=== PATIENT | male | born 1965 | race Caucasian/White ===

== ENCOUNTER 2023-02-25 08:55 | Outpatient (OUT) | payer OTHER, SELFPAY ==
[2023-02-25 09:23] LABS: Basophils Absolute Auto 0.1 10^3/uL (0.0-0.1); Eosinophils Absolute Auto 0.7 10^3/uL (0.0-0.7); Eosinophils Percent Auto 10.6 % (0.9-7.0); Hematocrit 41.1 % (42.0-54.0); Hemoglobin 13.6 g/dL (14.0-18.0); Immature Granulocytes Abs Auto 0.01 10^3/uL (0.00-0.03); Immature Granulocytes Pct Auto 0.1 % (0.0-0.5); Lymphocytes Absolute Auto 1.7 10^3/uL (1.2-3.8); Lymphocytes Percent Auto 25.3 % (20.5-60.0); Mean Corpuscular HGB Conc 33.1 g/dL (29.9-35.2); Mean Corpuscular Hemoglobin 29.2 pg (25.9-34.0); Mean Corpuscular Volume 88.2 fL (80.0-94.0); Mean Platelet Volume 9.4 fL (9.5-13.5); Monocytes Absolute Auto 0.7 10^3/uL (0.3-0.8); Monocytes Percent Auto 10.3 % (1.7-12.0); Neutrophils Absolute Auto 3.6 10^3/uL (1.4-6.5); Neutrophils Percent Auto 52.7 % (43.0-75.0); Platelet Count 270 10^3/uL (150-450); Red Blood Count 4.66 10^6/uL (4.70-6.10); Red Cell Distribution Width 12.6 % (11.0-15.0); White Blood Count 6.9 10^3/uL (4.0-11.0)
[2023-02-25 10:24] LABS: Estimated Average Glucose 134 mg/dL; Glycohemoglobin A1C 6.3 % (4.5-6.2)
[2023-02-25 11:09] LABS: Alanine Aminotransferase 43 U/L (16-63); Albumin Globulin Ratio 0.9; Albumin Level 3.7 g/dL (3.4-5.0); Alkaline Phosphatase 95 U/L (46-116); Anion Gap 11.2; Aspartate Amino Transferase 26 U/L (15-37); BUN Creatinine Ratio 12.9; Bilirubin Total 0.7 mg/dL (0.2-1.0); Calcium 9.3 mg/dL (8.5-10.1); Carbon Dioxide 26.4 mmol/L (21.0-32.0); Chloride 101 mmol/L (98-107); Chol HDL Ratio 5.4; Cholesterol 200 mg/dL (<=200); Estimated GFR (African America >60 (>=60); Estimated GFR (Non-African Ame 53 (>=60); Free Thyroxine Index 2.97 (1.30-4.50); Globulin 4.2 g/dL; Glucose 110 mg/dL (74-106); HDL Cholesterol 37 mg/dL (40-60); Potassium 3.6 mmol/L (3.5-5.1); Sodium 135 mmol/L (136-145); Thyroid Stimulating Hormone 1.169 uIU/mL (0.358-3.740); Total Protein 7.9 g/dL (6.4-8.2); Triglycerides 83 mg/dL (<=150); VLDL CHOLESTEROL 16.6 mg/dL
[2023-02-25 11:19] LABS: Prostate Specific Antigen Scrn 6.97 ng/mL (<=4.00)
== END 2023-02-25 08:56 ==
LOC: LAB 08:58
PROVIDERS: PCP Family Medicine; Visit Provider Family Medicine
DX: I10 Essential (primary) hypertension (principal); R73.09 Other abnormal glucose; Z12.5 Encounter for screening for malignant neoplasm of prostate
CPT/HCPCS: 36415; 80053; 80061; 83036; 84153; 84154; 84436; 84443; 84479; 85025; G0103

== ENCOUNTER 2023-02-28 13:11 | Outpatient (OUT) | payer OTHER, SELFPAY ==
[2023-03-01 04:07] LABS: PSA, Free 0.91 ng/mL; Prostate Specific Ag 5.2 ng/mL (0.0-4.0)
== END 2023-02-28 13:12 ==
LOC: LAB 13:11
PROVIDERS: PCP Family Medicine; Visit Provider Family Medicine
DX: R97.20 Elevated prostate specific antigen [PSA] (principal)
CPT/HCPCS: 36415

== ENCOUNTER 2023-03-16 08:01 | Outpatient (OUT) | payer OTHER, SELFPAY ==
--- NOTE | 2023-03-16 08:08 | US_ITS ---
The [address] [address] Patient Name: WAQAS DO MRN: [id number] date: 1965 Sex: M Assigned Patient Location: US Current Patient Location: US Accession/Order Number: [id number] Exam Date: 03/16/2023 08:10 Report Date: 03/16/2023 08:48 At the request of: KEV HUGO Procedure: US prostate EXAMINATION: US prostate HISTORY: ELEVATED PSA R97.20 COMPARISON: No relevant comparison available. TECHNIQUE: Ultrasound exam for the prostate with an endorectal transducer was performed utilizing real-time and color duplex Doppler sonography. FINDINGS: The prostate gland is enlarged measuring 6.1 x 5.6 x 4.6 cm. 82.7 cc, Grade 3. The prostate gland is lobular in contour containing a central hypoechogenic mass with calcifications which measures 5.4 x 4.6 x 4.1 cm. IMPRESSION: Enlarged prostate gland containing a 5.4 cm heterogeneous lobular central mass with calcifications Electronically authenticated by: DIDIER ADAM Date: 03/16/2023 08:48
== END 2023-03-16 08:02 | disposition home or self-care (01) ==
LOC: US 08:02
PROVIDERS: PCP Family Medicine; Visit Provider Family Medicine
DX: R97.20 Elevated prostate specific antigen [PSA] (principal)
CPT/HCPCS: 76872

== ENCOUNTER 2023-04-04 14:00 | Outpatient (OUT) | payer OTHER, SELFPAY | END 2023-04-04 14:01 | disposition home or self-care (01) | LOC: PST 04-08 18:58 | PROVIDERS: PCP Family Medicine; Visit Provider Surgery | DX: Z01.818 Encounter for other preprocedural examination (principal); Z12.11 Encounter for screening for malignant neoplasm of colon ==

== ENCOUNTER 2023-04-13 10:33 | Day surgery (SDC) | payer OTHER, SELFPAY ==
--- NOTE | 2023-04-13 | OP_ITS ---
OPERATION DATE: ??04/13/2023 PREOPERATIVE DIAGNOSIS:? Colorectal screening. POSTOPERATIVE DIAGNOSIS:? Normal colonoscopy to cecum. PROCEDURE:? Colonoscopy to cecum. SURGEON:? Yosi Sanders M.D. ANESTHESIA:? Monitored anesthesia care. ESTIMATED BLOOD LOSS:? Zero. INDICATIONS AND CONSENT:? Patient is a 57-year-old male presents for colorectal screening.? Indications, risks, benefits, alternatives of proceeding with colonoscopy were explained extensively to the patient, including the risks of bleeding, colon perforation or anesthetic complications.? All of his questions were answered.? Informed consent was obtained.? PROCEDURE:? Patient brought to the operating room, placed in the left lateral decubitus position.? Monitored anesthesia care was provided.? Rectal exam was performed which showed no masses or blood.? The scope was inserted into the anal canal.? Under direct visualization was advanced.? It was advanced to the cecum where cecal markings were clearly identified.? Upon withdrawal of the scope, mucosal surfaces were carefully examined.? There were no mass lesions or polyps.? No inflammatory changes or ulcerations.? No significant diverticulosis.? The scope was retroflexed in the anal canal.? There was no significant hemorrhoidal disease.? Scope was then withdrawn.? Patient tolerated procedure well, was sent to recovery room in good condition.? f/u screening colonoscopy should be in 10 years. CC:? Albaro Carrera
[2023-04-13 10:45] VITALS: BP 178/116; PULSE 85; RESP 16; TEMP 36.1; O2SAT 99; BMI 35.2
[2023-04-13] MEDS: LACTATED RINGER'S SOLUTION 1,000 ML 50 ML IV (10:55)
[2023-04-13 12:21] VITALS: BP 119/78; PULSE 65; RESP 18; TEMP 36.3; O2SAT 95
[2023-04-13 12:37] VITALS: BP 135/98; PULSE 71; RESP 16; O2SAT 95
[2023-04-13 12:49] VITALS: BP 148/78; PULSE 72; RESP 16; O2SAT 95
== END 2023-04-13 12:51 | disposition home or self-care (01) ==
PROVIDERS: PCP Family Medicine; Visit Provider Surgery
PROC: (CPT 45378; principal; 2023-04-13 13:45)
DX: Z12.11 Encounter for screening for malignant neoplasm of colon (principal); N40.1 Benign prostatic hyperplasia with lower urinary tract symptoms; R97.20 Elevated prostate specific antigen [PSA]; F17.220 Nicotine dependence, chewing tobacco, uncomplicated; E66.01 Morbid (severe) obesity due to excess calories; I10 Essential (primary) hypertension; Z87.442 Personal history of urinary calculi; Z80.52 Family history of malignant neoplasm of bladder; Z68.35 Body mass index [BMI] 35.0-35.9, adult
CPT/HCPCS: 45378; J2704

== ENCOUNTER 2023-05-05 09:54 | Outpatient (OUT) | payer OTHER, SELFPAY ==
[2023-05-06 04:08] LABS: Prostate Specific Ag 10.9 ng/mL (0.0-4.0)
== END 2023-05-05 09:55 | disposition home or self-care (01) ==
LOC: LAB 09:57
PROVIDERS: PCP Family Medicine; Visit Provider Urology
DX: R97.20 Elevated prostate specific antigen [PSA] (principal)
CPT/HCPCS: 36415; 84153; 84154

== ENCOUNTER 2023-05-05 10:00 | Outpatient (OUT) | payer OTHER, SELFPAY ==
[2023-05-05 11:33] LABS: C Reactive Protein 0.4 mg/dL (<=1.0)
[2023-05-06 06:09] LABS: Antistreptolysin O Ab 69.7 IU/mL (0.0-200.0); Rheumatoid Factor (RF) 42.5 IU/mL (<14.0)
== END 2023-05-05 10:01 | disposition home or self-care (01) ==
LOC: LAB 10:01
PROVIDERS: PCP Family Medicine; Visit Provider Nurse Practitioner Family
DX: R21 Rash and other nonspecific skin eruption (principal); R97.20 Elevated prostate specific antigen [PSA]
CPT/HCPCS: 36415; 84153; 84154; 84550; 86038; 86060; 86140; 86430

== ENCOUNTER 2023-09-26 15:55 | Outpatient (OUT) | payer OTHER, SELFPAY ==
--- NOTE | 2023-09-26 16:00 | XR_ITS ---
The [address] [address] Patient Name: WAQAS DO MRN: [id number] date: 1965 Sex: M Assigned Patient Location: RAD Current Patient Location: RAD Accession/Order Number: [id number] Exam Date: 09/26/2023 16:05 Report Date: 09/26/2023 16:37 At the request of: KEV HUGO Procedure: XR chest 2V EXAM: XR chest 2V HISTORY: Chronic cough R05.3 ; technologist notes state cough for one week. COMPARISON: None. TECHNIQUE: PA and lateral views of the chest performed. FINDINGS: The trachea is midline. The cardiac silhouette is unremarkable. There are patchy densities at both lung bases. There is no pleural effusion or pulmonary vascular congestion. There is no pneumothorax. No acute osseous abnormality. XR/XR chest 2V IMPRESSION: There are patchy densities at both lung bases. Appropriate medical treatment and a follow-up chest radiograph to confirm complete resolution recommended. Electronically authenticated by: PATRICA HILARIO Date: 09/26/2023 16:37
== END 2023-09-26 15:56 | disposition home or self-care (01) ==
LOC: RAD 15:56
PROVIDERS: PCP Family Medicine; Visit Provider Family Medicine
DX: R05.3 Chronic cough (principal)
CPT/HCPCS: 71046

== ENCOUNTER 2023-10-07 07:47 | Outpatient (OUT) | payer OTHER, SELFPAY ==
--- OUTSIDE RECORDS SUMMARY | 2023-10-07 07:48 | XMS_ITS | CCD ---
Author Name Unknown Address [address] [facility] [address] [place] [id number] Organization [facility] Care Team Providers Care Software Developer Manager Name Role Phone DR KEV MOSER Admitting Unavailable OANH, DR ANGULO Attending Unavailable OANH, DR ANGULO Primary Care Unavailable OANH, DR ANGULO Consulting Unavailable DIDIER LEACH Consulting Unavailable Kev Moser Primary Care Physician Yosi BRYSON Attending Unavailable VALDERRAMA, Jerzy Banda Attending Unavailable VALDERRAMA, Jerzy Banda Attending Unavailable VALDERRAMA, Jerzy Banda Attending Unavailable Kev Moser Referring Unavailable VALDERRAMA, Jerzy Banda Attending Unavailable VALDERRAMA, Jerzy Banda Attending Unavailable VALDERRAMA, Jerzy Banda Attending Unavailable VALDERRAMA, Jerzy Banda Admitting Unavailable NILL, Yosi Banda Attending Unavailable NILL, Yosi Banda Attending Unavailable Kev Moser Referring Unavailable Medications Current Medications Medication Drug Class(es) Dates Sig (Normalized) Sig (Original) carvedilol 6.25 mg oral tablet (3 sources) alpha-Adrenergic Iwly, beta-Adrenergic Wily Start: 03-18-2023 carvedilol 6.25 mg Tab Refills(s) 0 Start Date: 03/18/23 Status: Ordered ciprofloxacin 500 mg oral tablet (1 source) Quinolone Antimicrobial Start: 05-27-2023 End: 06-17-2023 take 1 tablet by mouth twice daily Cipro 500 mg Tab 500 mg = 1 tab(s), Oral, BID, X 3 week(s), # 42 tab(s), Refills(s) 0, Pharmacy: [facility]/pharmacy #[id number], 183, cm, 05/27/23 11:32:00 EDT, Height/Length Dosing, 120, kg, 05/27/23 11:32:00 EDT, Weight Dosing Start Date: 05/27/23 Stop Date: 06/17/23 Status: Ordered doxycycline hyclate 100 mg oral capsule (1 source) Tetracycline-class Drug Start: 03-18-2023 End: 04-15-2023 take 1 capsule by mouth twice daily doxycycline hyclate 100 mg Cap 100 mg = 1 cap(s), Oral, BID, X 4 week(s), # 56 cap(s), Refills(s) 0, Pharmacy: [facility]/pharmacy #[id number], 183, cm, 03/18/23 11:48:00 EDT, Height/Length Dosing, 120, kg, 03/18/23 11:48:00 EDT, Weight Dosing Start Date: 03/18/23 Stop Date: 04/15/23 Status: Ordered irbesartan 300 mg oral tablet (3 sources) Angiotensin 2 Receptor Wily Start: 03-18-2023 irbesartan 300 mg Tab Refills(s) 0 Start Date: 03/18/23 Status: Ordered tamsulosin hydrochloride 0.4 mg oral capsule (3 sources) alpha-Adrenergic Wily Start: 03-18-2023 take 1 capsule by mouth once daily tamsulosin 0.4 mg Cap 0.4 mg = 1 cap(s), Oral, Daily, # 30 cap(s), Refills(s) 11, Pharmacy: [facility]/pharmacy #[id number], 183, cm, 03/18/23 11:48:00 EDT, Height/Length Dosing, 120, kg, 03/18/23 11:48:00 EDT, Weight Dosing Start Date: 03/18/23 Status: Ordered Problems Problem Classification Problem Date Documented Da te Episodic/Chronic Abdominal pain (4 sources) Unspecified abdominal pain; Translations: [UNSPECIFIED ABDOMINAL PAIN] Onset: 08-06-2022 Episodic Calculus of urinary tract (5 sources) History of calculus of kidney; Translations: [Personal history of urinary calculi] Onset: 03-18-2023 Episodic Essential hypertension (3 sources) Hypertensive disorder 03-12-2023 Chronic Hyperplasia of prostate (5 sources) Benign prostatic hypertrophy with outflow obstruction; Translations: [Benign prostatic hyperplasia with lower urinary tract symptoms] Onset: 03-18-2023 Chronic Inflammatory conditions of male genital organs (5 sources) Prostatitis; Translations: [Inflammatory disease of prostate, unspecified] Onset: 03-18-2023 Episodic Joint disorders and dislocations; trauma-related (3 sources) Tear of meniscus of knee 09-30-2017 Episodic Osteoarthritis (3 sources) Osteoarthritis of knee 09-30-2017 Chronic Other diseases of kidney and ureters (1 source) Urinary tract obstruction; Translations: [Other obstructive and reflux uropathy] Onset: 03-18-2023 Episodic Other gastrointestinal disorders (1 source) Constipation, unspecified; Translations: [CONSTIPATION UNSPECIFIED] Onset: 08-11-2022 Episodic Other nutritional; endocrine; and metabolic disorders (3 sources) Body mass index 30+ - obesity 03-18-2023 Chronic Other nutritional; endocrine; and metabolic disorders (3 sources) Morbid obesity 03-18-2023 Chronic Other screening for suspected conditions (not mental disorders or infectious disease) (5 sources) Raised prostate specific antigen; Translations: [Elevated prostate specific antigen [PSA]] Onset: 03-18-2023 Episodic Residual codes; unclassified (4 sources) Family history of malignant neoplasm of urinary bladder; Translations: [Family history of malignant neoplasm of bladder] Onset: 03-18-2023 Episodic Residual codes; unclassified (3 sources) Chews tobacco 03-18-2023 Episodic Unclassified (3 sources) Patient encounter status 03-18-2023 Results Test Name Value Interpretation Reference Range [facility] ity Ambulatory Visit Summaryon 1 Ambulatory Visit Summary DOWAQAS :1965 Visit Date:07/01/2023 Ambulatory Visit Instructions Your Diagnosis Elevated PSA BPH with urinary obstruction Prostatitis History of nephrolithiasis Your Care Team Attending Physician - Jerzy VALDERRAMA MD Primary Care Physician - Kev Moser MD This Is Your Medications List tamsulosin (tamsulosin 0.4 mg Cap) Contact prescribing physician if questions or concerns carvedilol (carvedilol 6.25 mg Tab) irbesartan (irbesartan 300 mg Tab) Procedures Performed Transrectal biopsy of prostate using ultrasound (US) guidance (06/14/2023), Arthroscopy of knee (10/21/2017), excision of bone growth left lower leg, Myringotomy and insertion of short-term grommet. Discharge Vitals Heart Rate (Peripheral) 100 Respiratory Rate 16 Blood Pressure 149/88 Height 183 cm Height 72 in Weight 120 kg Weight 264 lb BMI 35.83 What to do next Scheduled Follow-Up Appointments Tuesday 10:30 AM EDT With: Jerzy VALDERRAMA MD Where: [facility] Patient Educationon 07-01-20 23 Patient Education Oncology Prostate Cancer Screening Prostate cancer screening is testing that is done to check for the presence of prostate cancer in men. The prostate gland is a walnut-sized gland that is located below the bladder and in front of the rectum in males. The function of the prostate is to add fluid to semen during ejaculation. Prostate cancer is one of the most common types of cancer in men. Who should have prostate cancer screening? Screening recommendations vary based on age and other risk factors, as well as between the professional organizations who make the recommendations. In general, screening is recommended if: ? You are age 50 to 70 and have an average risk for prostate cancer. You should talk with your health care provider about your need for screening and how often screening should be done. Because most prostate cancers are slow growing and will not cause , screening in this age group is generally reserved for men who have a 10- to 15-year life expectancy. ? You are younger than age 50, and you have these risk factors: ? Having a father, brother, or uncle who has been diagnosed with prostate cancer. The risk is higher if your family member's cancer occurred at an early age or if you have multiple family members with prostate cancer at an early age. ? Being a male who is Black or is of [place] or sub-Saharan descent. In general, screening is not recommended if: ? You are younger than age 40. ? You are between the ages of 40 and 49 and you have no risk factors. ? You are 70 years of age or older. At this age, the risks that screening can cause are greater than the benefits that it may provide. If you are at high risk for prostate cancer, your health care provider may recommend that you have screenings more often or that you start screening at a younger age. How is screening for prostate cancer done? The recommended prostate cancer screening test is a blood test called the prostate-specific antigen (PSA) test. PSA is a protein that is made in the prostate. As you age, your prostate naturally produces more PSA. Abnormally high PSA levels may be caused by: ? Prostate cancer. ? An enlarged prostate that is not caused by cancer (benign prostatic hyperplasia, or BPH). This condition is very common in older men. ? A prostate gland infection (prostatitis) or urinary tract infection. ? Certain medicines such as male hormones (like testosterone) or other medicines that raise testosterone levels. A rectal exam may be done as part of prostate cancer screening to help provide information about the size of your prostate gland. When a rectal exam is performed, it should be done after the PSA level is drawn to avoid any effect on the results. Depending on the PSA results, you may need more tests, such as: ? A physical exam to check the size of your prostate gland, if not done as part of screening. ? Blood and imaging tests. ? A procedure to remove tissue samples from your prostate gland for testing (biopsy). This is the only way to know for certain if you have prostate cancer. What are the benefits of prostate cancer screening? ? Screening can help to identify cancer at an early stage, before symptoms start and when the cancer can be treated more easily. ? There is a small chance that screening may lower your risk of dying from prostate cancer. The chance is small because prostate cancer is a slow-growing cancer, and most men with prostate cancer from a different cause. What are the risks of prostate cancer screening? The main risk of prostate cancer screening is diagnosing and treating prostate cancer that would never have caused any symptoms or problems. This is called overdiagnosisand overtreatment. PSA screening cannot tell you if your PSA is high due to cancer or a different cause. A prostate biopsy is the only procedure to diagnose prostate cancer. Even the results of a biopsy may not tell you if your cancer needs to be treated. Slow-growing prostate cancer may not need any treatment other than monitoring, so diagnosing and treating it may cause unnecessary stress or other side effects. Questions to ask your health care provider ? When should I start prostate cancer screening? ? What is my risk for prostate cancer? ? How often do I need screening? ? What type of screening tests do I need? ? How do I get my test results? ? What do my results mean? ? Do I need treatment? Where to find more information ? The [employer]: www.cancer.org ? [employer]: www.auanet.org Contact a health care provider if: ? You have difficulty urinating. ? You have pain when you urinate or ejaculate. ? You have blood in your urine or semen. ? You have pain in your back or in the area of your prostate. Summary ? Prostate cancer is a common type of cancer in men. The prostate gland is located below the bladder and in front of the rectum. This gland adds flu (more content not included)... Normal [facility] Urology Office/Clinic Noteon 07-01-2023 Urology Office/Clinic Note Chief Complaint f/u to TRUS bx HPI Staff 57 yo male here to review pathology report from TRUS/bx on 06/14/23. Previous Dx: elevated PSA, BPH with obstruction, prostatitis, h/o nephrolithiasis. No hx of other TRUS/bx. Tamsulosin 0.4mg therapy QD. Dysuria: no Incomplete bladder emptying: no Hematuria: no Frequency: no Urgency: no Nocturia: 1-2x Stream: good steady stream Leaking: no Post void dripping: no Wearing pads/ Depends: no Urge incontinence: no Stress incontinence: no Incontinence without Sensory Awareness: no Abdominal pain: no Flank pain: no Sexual complaints: no History of Present Illness Tests reviewed: reviewed pathology report I have reviewed the previous health record information and history for this patient from Dr. Valderrama. I have reviewed and verified the staff HPI to be accurate for this encounter. Review of Systems PHQ Score Initial Depression Screen Score: 0 ROS - Provider Constitutional: denies weight loss, denies hot flashes. Eyes: denies eye problems. Gastrointestinal: denies nausea, denies vomiting. Cardiovascular: denies chest pain or angina. Integumentary: no dryness Musculoskeletal: denies musculoskeletal symptoms. ENMT: denies otolaryngeal symptoms. Respiratory: no shortness of breath. Heme/Lymph: denies easy bleeding tendency, denies easy bruising tendency. Psychiatric: no confusion, no anxiety. Genitourinary: See HPI. Physical Exam Vitals & Measurements HR: 100(Peripheral) RR: 16 BP: 149/88 HT: 72 in HT: 183 cm WT: 120 kg WT: 264 lb BMI: 35.83 General Appearance: alert, no distress, well nourished, well developed male. Genitourinary: normal scrotum, normal testes, normal urethra, normal epididymis, normal vas deferens/spermatic cord. Flank Pain: none. Bladder: nonpalpable. Assessment/Plan Pt is here with today to review pathology report. 1. Elevated PSA (R97.20: Elevated prostate specific antigen [PSA]) S/p TRUS/bx 06/14/23 - mild acute chronic inflammation in 3 cores. The pathology report was reviewed with the patient in detail today. There is no evidence of malignancy and no further evaluation of the tissue removed is planned. Discussed prostate does have some inflammation which can falsely elevate PSA. All questions were answered and the report discussed in terms that the patient could understand. PSA: 09/28/16 - 2.20 02/25/23 - 6.97 05/05/23 - 10.9 & 19.3% (after possible prostatitis tx) Denies family hx of prostate cancer. Follow up with PSA in 6 months or sooner if needed. All questions/concerns were discussed. Pt to call the office if he encounters any issues prior. Pt acknowledges understanding. -next PSA level will need doubled since pt is beginning Dutasteride 2. BPH with urinary obstruction (N40.1: Benign prostatic hyperplasia with lower urinary tract symptoms) Prostate US 03/16/23 - enlarged prostate measuring 6.1 x 5.6 x 4.6 cm. 82.7 cc. Continues taking Tamsulosin 0.4mg QD (at night). States his urinary sxs have improved by about 85% since beginning this med. Good stream. Feels he empties completely. Reports his sx control is not as good in the afternoons. Admits he does have nocturia 1-2x/night (was every 2hrs) but feels this is tolerable. Discussed pt to try taking BID for a week and to monitor sxs. If pt feels improvement, pt to call our office for new script. Discussed additional prostate medication to help control urinary sxs. Pt agrees to begin Dutasteride 0.5mg qd. Discussed the medication side effects, and the patient will monitor closely for these, as well as for symptom improvement. If severe side effects occur, the medication should be stopped and the office notified. -Try increasing Tamsulosin 0.4mg to bid for a week and call for new script if sxs improve. -Begin Dutasteride. Rx sent to [facility]. 3. Prostatitis (N41.9: Inflammatory disease of prostate, unspecified) Pt was given Cipro 500mg BID x3w. Completed abx course with sx improvement. Denies any pain or pressure. 4. History of nephrolithiasis (Z87.442: Personal history of urinary calculi) Asymptomatic. No recent imaging. Follow-up With When Contact Information Jerzy VALDERRAMA MD, URL [facility] [address], [place] [address]- [phone] Additional Instructions: 6 mos w/ PSA Patient Education Prostate Cancer Screening Ramona Biggs, personally scribed for Dr. Valderrama on 07/01/2023 09:32:13. . Documentation recorded by the scribeRamona, accurately reflects the services(s) I performed and decisions made by me. Authenticated by Dr. Valderrama on 07/01/2023 09:34:30. Problem List/Past Medical History Ongoing BMI 35.0-35.9,adult BPH with urinary obstruction Chews tobacco Elevated PSA Family history of bladder cancer History of nephrolithiasis HTN (hypertension) Morbid obesity Prostatitis Screening for malignant neoplasm of colon Historical (more content not included)... Normal [facility] Comment on above: Result Comment: Elec tronically Signed By: Jerzy VALDERRAMA MD\.br\Date and Time Signed: 07/01/23 09:34 EDT\.br\Electronically Co-Signed By: Ramona Whitlock\.br\Date and Time Co-Signed: 07/01/23 09:32 EDT Prostate Histology ([facility]) on 06-23-2023 Prostate Histology Diagnosis Info Invalid Interpretation Code [facility] Comment on above: Result Comment: A:Pr ostate,Left Lateral Base:Needle Biopsy Interpretation - - Benign prostatic tissue. MicroScopic Description - B:Prostate,Left Lateral Mid:Needle Biopsy Interpretation - - Benign prostatic tissue. MicroScopic Description - C:Prostate,Left Lateral [place]:Needle Biopsy Interpretation - - Benign prostatic tissue. MicroScopic Description - D:Prostate,Left Base:Needle Biopsy Interpretation - - Benign prostatic tissue. MicroScopic Description - E:Prostate,Left Mid:Needle Biopsy Interpretation - - Benign prostatic tissue. MicroScopic Description - F:Prostate,Left [place]:Needle Biopsy Interpretation - - Benign prostatic tissue. MicroScopic Description - G:Prostate,Right Base:Needle Biopsy Interpretation - - Benign prostatic tissue with patchy mild acute chronic inflammation. MicroScopic Description - H:Prostate,Right Mid:Needle Biopsy Interpretation - - Benign prostatic tissue. MicroScopic Description - I:Prostate,Right [place]:Needle Biopsy Interpretation - - Benign prostatic tissue with patchy mild acute chronic inflammation. MicroScopic Description - J:Prostate,Right Lateral Base:Needle Biopsy Interpretation - - Benign prostatic tissue. MicroScopic Description - K:Prostate,Right Lateral Mid:Needle Biopsy Interpretation - - Benign prostatic tissue. MicroScopic Description - L:Prostate,Right Lateral [place]:Needle Biopsy Interpretation - - Benign prostatic tissue with patchy mild acute chronic inflammation. MicroScopic Description - Gross Description Site ID:A color ariza-white fixative Formalin cores 1 units cm Site ID:B color ariza-white fixative Formalin cores 1 units cm Site ID:C color ariza-white fixative Formalin cores 1 units cm Site ID:D color ariza-white fixative Formalin cores 1 units cm Site ID:E color ariza-white fixative Formalin cores 1 units cm Site ID:F color ariza-white fixative Formalin cores 1 units cm Site ID:G color ariza-white fixative Formalin cores 1 units cm Site ID:H color ariza-white fixative Formalin cores 1 units cm Site ID:I color ariza-white fixative Formalin cores 1 units cm Site ID:J color ariza-white fixative Formalin cores 1 units cm Site ID:K color ariza-white fixative Formalin cores 1 units cm Site ID:L color ariza-white fixative Formalin cores 1 units cm CPT: 52159 x 12 Electronically signed by : on: 06/23/2023 10:59:54 Performed By: #### 1 [id number] ####[facility] [address] [place] [address] Consent for Procedure/Surger yon 06-15-2023 Consent for Procedure/Surgery [id number]:[id number] Normal [facility] Ambulatory Visit Summaryon 0 06-14-2023 Ambulatory Visit Summary WAQAS DO :1965 Visit Date:06/14/2023 Ambulatory Visit Instructions Your Diagnosis Elevated PSA BPH with urinary obstruction Prostatitis History of nephrolithiasis Your Care Team Attending Physician - DEBBIE AMADO, Jerzy Banda Primary Care Physician - Kev Moser MD This Is Your Medications List Contact prescribing physician if questions or concerns carvedilol (carvedilol 6.25 mg Tab) ciprofloxacin (Cipro 500 mg Tab) irbesartan (irbesartan 300 mg Tab) tamsulosin (tamsulosin 0.4 mg Cap) Procedures Performed Transrectal biopsy of prostate using ultrasound (US) guidance (06/14/2023), Arthroscopy of knee (10/21/2017), excision of bone growth left lower leg, Myringotomy and insertion of short-term grommet. Discharge Vitals Heart Rate (Apical) 88 Blood Pressure 159/105 Height 72 in Height 183 cm Weight 264 lb Weight 120 kg BMI 35.83 What to do next Scheduled Follow-Up Appointments Tuesday 8:45 AM EDT With: DEBBIE AMADO, Jerzy Banda Where: [facility] [place] Invalid Interpretation Code BPH with urinary obstruction [facility] Patient Educationon 06-14-20 23 Patient Education Oncology Transrectal Ultrasound-Guided Prostate Biopsy, Care After The following information offers guidance on how to care for yourself after your procedure. Your health care provider may also give you more specific instructions. If you have problems or questions, contact your health care provider. What can I expect after the procedure? After the procedure, it is common to have: ? Pain and discomfort near your rectum, especially while sitting. ? [place]-colored urine due to small amounts of blood in your urine. ? A burning feeling while urinating. ? Blood in your stool (feces) or bleeding from your rectum. ? Blood in your semen. Follow these instructions at home: Medicines ? Take npid-qjr-szscxat and prescription medicines only as told by your health care provider. ? If you were given a sedative during your procedure, it can affect you for several hours. Do not drive or operate machinery until your health care provider says that it is safe. ? If you were prescribed an antibiotic medicine, take it as told by your health care provider. Do not stop using the antibiotic even if you start to feel better. Activity ? Return to your normal activities as told by your health care provider. Ask your health care provider what activities are safe for you. ? Ask your health care provider when it is okay for you to resume sexual activity. ? You may have to avoid lifting. Ask your health care provider how much you can safely lift. General instructions ? Drink enough fluid to keep your urine pale yellow. ? Watch your urine, stool, and semen for new or increased bleeding. ? Keep all follow-up visits. This is important. Contact a health care provider if: ? You have any of the following: ? Blood clots in your urine or stool. ? Blood in your urine more than 2 weeks after the procedure. ? Blood in your semen more than 2 months after the procedure. ? New or increased bleeding in your urine, stool, or semen. ? Severe pain in your abdomen. ? Your urine smells bad or unusual. ? You have trouble urinating. ? Your lower abdomen feels firm. ? You have problems getting an erection. ? You have nausea or you vomit. Get help right away if: ? You have a fever or chills. This could be a sign of infection. ? You have bright red urine. ? You have severe pain that does not get better with medicine. ? You cannot urinate. Summary ? After this procedure, it is common to have pain and discomfort around your rectum, especially while sitting. ? You may have blood in your urine and stool after the procedure. ? It is common to have blood in your semen after this procedure. ? Get help right away if you have a fever or chills. This could be a sign of infection. This information is not intended to replace advice given to you by your health care provider. Make sure you discuss any questions you have with your health care provider. Document Revised: 03/01/2022 Document Reviewed: 03/01/2022 [employer] Patient Education ? 2022 [employer] Normal [facility] Prostate Histology ([facility]) on 06-14-2023 PH Method of Extraction Needle Biopsy Normal [facility] Comment on above: Performed By: #### 1 [id number] ####[facility] [id number] [place] [address] PH Number of Jars 2 Invalid Interpretation Code [facility] Comment on above: Performed By: #### 1 [id number] ####[facility] [id number] [place] [address] PH Specimen 1 R Base Prostate Normal [facility] Comment on above: Performed By: #### 1 [id number] ####[facility] [id number] [place] [address] PH Specimen 10 L Lat Mid Prost Normal [facility] Comment on above: Performed By: #### 1 [id number] ####[facility] [id number] [place] [address] PH Specimen 11 L Apx Prostate Normal [facility] Comment on above: Performed By: #### 1 [id number] ####[facility] [id number] [place] [address] PH Specimen 12 L Lat Apx Prost Normal [facility] Comment on above: Performed By: #### 1 [id number] ####[facility] [facility] [id number] [place] [address] PH Specimen 2 R Lat Bse Prost Normal [facility] Comment on above: Performed By: #### 1 [id number] ####[facility] [id number] [place] [address] PH Specimen 3 R Mid Prostate Normal [facility] Comment on above: Performed By: #### 1 [id number] ####[facility] [id number] [place] [address] PH Specimen 4 R Lat Mid Prost Normal [facility] Comment on above: Performed By: #### 1 [id number] ####[facility] [id number] [place] [address] PH Specimen 5 R Apx Prostate Normal [facility] Comment on above: Performed By: #### 1 [id number] ####[facility] [id number] [place] [address] PH Specimen 6 R Lat Apx Prost Normal [facility] Comment on above: Performed By: #### 1 [id number] ####[facility] [id number] [place] [address] PH Specimen 7 L Base Prostate Normal [facility] Comment on above: Performed By: #### 1 [id number] ####[facility] [address] [place] [address] PH Specimen 8 L Lat Bse Prost Normal [facility] Comment on above: Performed By: #### 1 [id number] ####[facility] [address] [place] [address] PH Specimen 9 L Mid Prostate Normal [facility] Comment on above: Performed By: #### 1 [id number] ####[facility] [id number] [place] [address] PH Type of Service Technical Only Normal Fi [facility] Comment on above: Performed By: #### 1 [id number] ####[facility] [id number] [place] [address] Urology Office/Clinic Noteon 06-14-2023 Urology Office/Clinic Note Chief Complaint Pt is here for TRUS/bx HPI Staff Waqas is a 57 y.o. male here for TRUS/bx. ABX taken. History of Present Illness Tests reviewed: none I have reviewed the previous health record information and history for this patient from Dr. Valderrama. I have reviewed and verified the staff HPI to be accurate for this encounter. There have been no associated fever, chills, flank pain, or blood in the urine. Denies any urinary infections since last encounter. Review of Systems PHQ Score Initial Depression Screen Score: 0 ROS - Provider Constitutional: denies weight loss, denies hot flashes. Eyes: denies eye problems. Gastrointestinal: denies nausea, denies vomiting. Cardiovascular: denies chest pain or angina. Integumentary: no dryness Musculoskeletal: denies musculoskeletal symptoms. ENMT: denies otolaryngeal symptoms. Respiratory: no shortness of breath. Heme/Lymph: denies easy bleeding tendency, denies easy bruising tendency. Psychiatric: no confusion, no anxiety. Genitourinary: See HPI. Physical Exam Vitals & Measurements HR: 88(Apical) BP: 159/105 HT: 72 in HT: 183 cm WT: 120 kg WT: 264 lb BMI: 35.83 General Appearance: alert, no distress, well nourished, well developed male. Genitourinary: normal scrotum, normal testes, normal urethra, normal epididymis, normal vas deferens/spermatic cord. Flank Pain: none. Bladder: nonpalpable. Procedure Operative Information Anesthesia Type: Local Procedure: Transrectal Ultrasound and Transrectal Ultrasound-Guided Biopsy of the Prostate Complications: None Surgical risks, benefits, details of the procedure have been explained to the patient. Full informed consent has been obtained. Intraoperative Information Prepped: The patient was brought into the office suite and placed in the modified left lateral Hill position. The patient was draped appropriately. 80 mg Gentamicin IM injection administered. Procedure: Then 2% Xylocaine jelly was used for intrarectal anesthesia. After waiting several minutes, a well lubricated ultrasound probe was introduced per rectum. The prostate was carefully evaluated in the AP and Sagittal views. Volume: 60.5mL_ Specimens Removed: A total of 12 biopsies were taken, 6 from each side, and sent to pathology. Postoperative Information The patient tolerated the procedure well and was discharged home in satisfactory condition. The patient was instructed to finish antibiotics, avoid strenuous activity, and go to the emergency room for gross bleeding, fever, or chills. Radiology Report Procedure: Transrectal US guided needle biopsy of the prostate Narrative: Ultrasound probe is introduced and performed in the longitudinal and transverse plains. The prostatic capsule and seminal vesicles appear to be within normal limits. Ultrasound guidance was then utilized to obtain 12 biopsies. These were sent to pathology for evaluation. The gland measures: _49.8 MM Length, _62.0 MM Width, _37.5 MM Depth, with a calculated volume of _60.5 CC. The peripheral zone demonstrates: mixed echogenicity diffusely Rest of the prostate demonstrates: _ Assessment/Plan 1. Elevated PSA (R97.20: Elevated prostate specific antigen [PSA]) PSA: 09/28/16 - 2.20 02/25/23 - 6.97 05/05/23 - 10.9 & 19.3% (after possible prostatitis tx) [1] Denies family hx of prostate cancer[2] Pt had TRUS/bx done IO today wo complications. Prophy abx taken prior. 2. BPH with urinary obstruction (N40.1: Benign prostatic hyperplasia with lower urinary tract symptoms) Prostate US 03/16/23 enlarged prostate measuring 6.1 x 5.6 x 4.6 cm. 82.7 cc Continues taking Tamsulosin 0.4mg QD. States this has improved sxs. 3. Prostatitis (N41.9: Inflammatory disease of prostate, unspecified) Pt was given Cipro 500mg BID x3 weeks at prior OV. Still taking. -Patient to limit sun exposure, wear a hat and sunscreen -Monitor for tendon pain, risk of tendonitis w/ Cipro 4. History of nephrolithiasis (Z87.442: Personal history of urinary calculi) Asymptomatic. No recent imaging. [3] Follow-up With When Contact Information DEBBIE AMADO, Jerzy Banda, URL [facility] [address] [place] [phone] Additional Instructions: f/u sched on 07/01/23 Patient Education Transrectal Ultrasound-Guided Prostate Biopsy, Care After I, Ramona Whitlock, personally scribed for Dr. Valderrama on 06/14/2023 16:39:55. . Documentation recorded by the scribeRamona, accurately reflects the services(s) I performed and decisions made by me. Authenticated by Dr. Valderrama on 06/14/2023 16:41:17. Problem List/Past Medical History Ongoing BMI 35.0-35.9,adult BPH with urinary obstruction Chews tobacco Elevated PSA Family history of bladder cancer History of nephrolithiasis HTN (hypertension) Morbid obesity Prostatitis Screening for malignant neoplasm of colon Historical No qualifying data Procedur (more content not included)... Normal [facility] Comment on above: Result Comment: Elec tronically Signed By: Jerzy VALDERRAMA MD\.br\Date and Time Signed: 06/14/23 16:41 EDT\.br\Electronically Co-Signed By: Ramona Whitlock\.br\Date and Time Co-Signed: 06/14/23 16:40 EDT Ambulatory Visit Summaryon 0 05-27-2023 Ambulatory Visit Summary WAQAS DO :1965 Visit Date:05/27/2023 Ambulatory Visit Instructions Your Diagnosis BPH with urinary obstruction Elevated PSA Prostatitis History of nephrolithiasis Tests Performed Urnls Dip Stick Auto w/o Microscopy POC 48612 Your Care Team Attending Physician - Jerzy VALDERRAMA MD Primary Care Physician - Kev Moser MD This Is Your Medications List ciprofloxacin (Cipro 500 mg Tab) tamsulosin (tamsulosin 0.4 mg Cap) Contact prescribing physician if questions or concerns carvedilol (carvedilol 6.25 mg Tab) irbesartan (irbesartan 300 mg Tab) Procedures Performed Arthroscopy of knee (10/21/2017), excision of bone growth left lower leg, Myringotomy and insertion of short-term grommet. Discharge Vitals Temperature (Temporal Artery) 36.6 ?C Heart Rate (Peripheral) 82 Blood Pressure 134/82 Height 183 cm Height 72 in Weight 120 kg Weight 264 lb BMI 35.83 What to do next You Need to Schedule the Following Appointments Follow Up with DEBBIE AMADO, DARON Ocampo When: Where: [address] [place], [place] [id number]- Medications What How Much When Instructions New ciprofloxacin (Cipro 500 mg Tab) 1 Tablets By Mouth 2 times a day Duration: 3 Weeks Pickup at [facility]/pharmacy #[id number] Unchanged tamsulosin (tamsulosin 0.4 mg Cap) 1 Capsules By Mouth Every day Unchanged carvedilol (carvedilol 6.25 mg Tab) Contact prescribing physician if questions or concerns Unchanged irbesartan (irbesartan 300 mg Tab) Contact prescribing physician if questions or concerns Pharmacy Information [facility]/pharmacy #[id number]: [address], [place] [id number] [phone] Test Results Urnls Dip Stick Auto w/o Microscopy POC 45996 (05/27/2023) Bilirubin Urine Dipstick - Negative Blood Urine Dipstick - Trace-intact Glucose Urine Dipstick - Negative Ketones Urine Dipstick - Negative Leukocytes Urine Dipstick - Negative Nitrite Urine Dipstick - Negative Protein Urine Dipstick - Negative Specific [place] Urine Dipstick - 1.020 Urine Appearance Urine Dipstick - Clear Urine Color Urine Dipstick - Yellow Urobilinogen Urine Dipstick - Normal 0.2-1 EU/dl pH Urine Dipstick - 5.5 Allergies No Known Allergies Problems Ongoing - Any problem that you are currently receiving treatment for. BMI 35.0-35.9,adult BPH with urinary obstruction Chews tobacco Elevated PSA Family history of bladder cancer History of nephrolithiasis HTN (hypertension) Morbid obesity Prostatitis Screening for malignant neoplasm of colon Education Materials Prostate Cancer Screening Prostate cancer screening is testing that is done to check for the presence of prostate cancer in men. The prostate gland is a walnut-sized gland that is located below the bladder and in front of the rectum in males. The function of the prostate is to add fluid to semen during ejaculation. Prostate cancer is one of the most common types of cancer in men. Who should have prostate cancer screening? Screening recommendations vary based on age and other risk factors, as well as between the professional organizations who make the recommendations. In general, screening is recommended if: ? You are age 50 to 70 and have an average risk for prostate cancer. You should talk with your health care provider about your need for screening and how often screening should be done. Because most prostate cancers are slow growing and will not cause , screening in this age group is generally reserved for men who have a 10- to 15-year life expectancy. ? You are younger than age 50, and you have these risk factors: ? Having a father, brother, or uncle who has been diagnosed with prostate cancer. The risk is higher if your family member's cancer occurred at an early age or if you have multiple family members with prostate cancer at an early age. ? Being a male who is Black or is of Samuel or sub-Saharan descent. In general, screening is not recommended if: ? You are younger than age 40. ? You are between the ages of 40 and 49 and you have no risk factors. ? You are 70 years of age or older. At this age, the risks that screening can cause are greater than the benefits that it may provide. If you are at high risk for prostate cancer, your health care provider may recommend that you have screenings more often or that you start screening at a younger age. How is screening for prostate cancer done? The recommended prostate cancer screening test is a blood test called the prostate-specific antigen (PSA) test. PSA is a protein that is made in the prostate. As you age, your prostate naturally produces more PSA. Abnormally high PSA levels may be caused by: ? Prostate cancer. ? An enlarged prostate that is not caused by cancer (benign prostatic hyperplasia, or BPH). This condition is very common in older men. ? A prostate gland infection (pr (more content not included)... Normal [facility] Patient Educationon 05-27-20 Patient Education Oncology Prostate Cancer Screening Prostate cancer screening is testing that is done to check for the presence of prostate cancer in men. The prostate gland is a walnut-sized gland that is located below the bladder and in front of the rectum in males. The function of the prostate is to add fluid to semen during ejaculation. Prostate cancer is one of the most common types of cancer in men. Who should have prostate cancer screening? Screening recommendations vary based on age and other risk factors, as well as between the professional organizations who make the recommendations. In general, screening is recommended if: ? You are age 50 to 70 and have an average risk for prostate cancer. You should talk with your health care provider about your need for screening and how often screening should be done. Because most prostate cancers are slow growing and will not cause , screening in this age group is generally reserved for men who have a 10- to 15-year life expectancy. ? You are younger than age 50, and you have these risk factors: ? Having a father, brother, or uncle who has been diagnosed with prostate cancer. The risk is higher if your family member's cancer occurred at an early age or if you have multiple family members with prostate cancer at an early age. ? Being a male who is Black or is of Samuel or sub-Saharan descent. In general, screening is not recommended if: ? You are younger than age 40. ? You are between the ages of 40 and 49 and you have no risk factors. ? You are 70 years of age or older. At this age, the risks that screening can cause are greater than the benefits that it may provide. If you are at high risk for prostate cancer, your health care provider may recommend that you have screenings more often or that you start screening at a younger age. How is screening for prostate cancer done? The recommended prostate cancer screening test is a blood test called the prostate-specific antigen (PSA) test. PSA is a protein that is made in the prostate. As you age, your prostate naturally produces more PSA. Abnormally high PSA levels may be caused by: ? Prostate cancer. ? An enlarged prostate that is not caused by cancer (benign prostatic hyperplasia, or BPH). This condition is very common in older men. ? A prostate gland infection (prostatitis) or urinary tract infection. ? Certain medicines such as male hormones (like testosterone) or other medicines that raise testosterone levels. A rectal exam may be done as part of prostate cancer screening to help provide information about the size of your prostate gland. When a rectal exam is performed, it should be done after the PSA level is drawn to avoid any effect on the results. Depending on the PSA results, you may need more tests, such as: ? A physical exam to check the size of your prostate gland, if not done as part of screening. ? Blood and imaging tests. ? A procedure to remove tissue samples from your prostate gland for testing (biopsy). This is the only way to know for certain if you have prostate cancer. What are the benefits of prostate cancer screening? ? Screening can help to identify cancer at an early stage, before symptoms start and when the cancer can be treated more easily. ? There is a small chance that screening may lower your risk of dying from prostate cancer. The chance is small because prostate cancer is a slow-growing cancer, and most men with prostate cancer from a different cause. What are the risks of prostate cancer screening? The main risk of prostate cancer screening is diagnosing and treating prostate cancer that would never have caused any symptoms or problems. This is called overdiagnosisand overtreatment. PSA screening cannot tell you if your PSA is high due to cancer or a different cause. A prostate biopsy is the only procedure to diagnose prostate cancer. Even the results of a biopsy may not tell you if your cancer needs to be treated. Slow-growing prostate cancer may not need any treatment other than monitoring, so diagnosing and treating it may cause unnecessary stress or other side effects. Questions to ask your health care provider ? When should I start prostate cancer screening? ? What is my risk for prostate cancer? ? How often do I need screening? ? What type of screening tests do I need? ? How do I get my test results? ? What do my results mean? ? Do I need treatment? Where to find more information ? [employer]: www.cancer.org ? [employer]: www.auanet.org Contact a health care provider if: ? You have difficulty urinating. ? You have pain when you urinate or ejaculate. ? You have blood in your urine or semen. ? You have pain in your back or in the area of your prostate. Summary ? Prostate cancer is a common type of cancer in men. The prostate gland is located below the bladder and in front of the rectum. This gland adds flu (more content not included)... Normal [facility] Urology Office/Clinic Noteon 05-27-2023 Urology Office/Clinic Note Chief Complaint 2 month F/U with PSA Free &* Total HPI Staff 2 month F/U with PSA Free & Total Previous DX; Elevated PSA 02/25/23- 6.97 05/05/23- PSA 10.9 ...19.3 % Prostatitis Doxycycline 100mg BID x4wks. He did take this but he noticed red bumps on him, he does not know if it was from the medication BPH Tamsulosin works very well Dysuria: _denies Incomplete bladder emptying: denies Hematuria: denies visible blood Frequency: every few hours Urgency: denies Nocturia: once nightly Stream: denies hesitation, strong stream Leaking: denies Post void dripping: sometimes Wearing pads/ Depends: denies Urge incontinence: denies Stress incontinence: denies Incontinence without Sensory Awareness: denies Abdominal pain: denies Flank pain: denies Sexual complaints: denies History of Present Illness Tests reviewed: Reviewed UA and PSA. I have reviewed the previous health record information and history for this patient from Dr. Valderrama. I have reviewed and verified the staff HPI to be accurate for this encounter. There have been no associated fever, chills, flank pain, or blood in the urine. Denies any urinary infections since last encounter. Review of Systems PHQ Score Initial Depression Screen Score: 0 ROS - Provider Constitutional: denies weight loss, denies hot flashes. Eyes: denies eye problems. Gastrointestinal: denies nausea, denies vomiting. Cardiovascular: denies chest pain or angina. Integumentary: no dryness Musculoskeletal: denies musculoskeletal symptoms. ENMT: denies otolaryngeal symptoms. Respiratory: no shortness of breath. Heme/Lymph: denies easy bleeding tendency, denies easy bruising tendency. Psychiatric: no confusion, no anxiety. Genitourinary: See HPI. Physical Exam Vitals & Measurements T: 36.6 ?C(Temporal Artery) HR: 82(Peripheral) BP: 134/82 HT: 72 in HT: 183 cm WT: 120 kg WT: 264 lb BMI: 35.83 General Appearance: alert, no distress, well nourished, well developed male. Genitourinary: normal scrotum, normal testes, normal urethra, normal epididymis, normal vas deferens/spermatic cord. Flank Pain: none. Bladder: nonpalpable. Assessment/Plan 1. BPH with urinary obstruction (N40.1: Benign prostatic hyperplasia with lower urinary tract symptoms) Prostate US 03/16/23 enlarged prostate measuring 6.1 x 5.6 x 4.6 cm. 82.7 cc Patient was started on Tamsulosin 0.4mg daily at last visit. Happy w/ results since starting medication. Stream has improved, nocturia has decreased. Intermittently able to sleep through the night. Frequency has improved. 2. Elevated PSA (R97.20: Elevated prostate specific antigen [PSA]) PSA: 09/28/16 - 2.20 02/25/23 - 6.97 05/05/23 - 10.9 & 19.3% (after possible prostatitis tx) Denies family hx of prostate cancer -Will schedule TRUS/bx due to rise in PSA 3. Prostatitis (N41.9: Inflammatory disease of prostate, unspecified) Patient was started on Doxycycline 100mg BID x 4 weeks at last encounter for possible prostatitis/reason for PSA increase. He did take this but he noticed red bumps on him, he does not know if it was from the medication. Does work in the sun which could of caused the red bumps. Denies wearing sunscreen. UA today trace LEUKS -Start Cipro 500mg BID x 3 weeks -Patient to limit sun exposure, wear a hat and sunscreen -Monitor for tendon pain, risk of tendonitis w/ Cipro 4. History of nephrolithiasis (Z87.442: Personal history of urinary calculi) Asymptomatic. No recent imaging. Follow-up With When Contact Information DEBBIE AMADO, Jerzy Banda, URL [facility] [place] [id number]- Additional Instructions: Schedule TRUS/bx Patient Education Prostate Cancer Screening Kamilah Biggs, personally scribed for Dr. Valderrama on 05/27/2023 12:22:03. . Documentation recorded by the scribeKamilah, accurately reflects the services(s) I performed and decisions made by me. Authenticated by Dr. Valderrama on 05/27/2023 12:25:31. Problem List/Past Medical History Ongoing BMI 35.0-35.9,adult BPH with urinary obstruction Chews tobacco Elevated PSA Family history of bladder cancer History of nephrolithiasis HTN (hypertension) Morbid obesity Prostatitis Screening for malignant neoplasm of colon Historical No qualifying data Procedure/Surgical History Arthroscopy of knee (10/21/2017), excision of bone growth left lower leg, Myringotomy and insertion of short-term grommet. Medications carvedilol 6.25 mg Tab irbesartan 300 mg Tab tamsulosin 0.4 mg Cap, 0.4 mg= 1 cap(s), Oral, Daily, 11 refills Allergies No Known Allergies Social History Alcohol - Denies Alcohol Use, 09/30/2017 Substance Abuse - Denies Substance Abuse, 09/30/2017 Tobacco - Medium Risk, 10/21/2017 Former smoker, quit more than 30 days ago Tobacco Use:. Smokeless tobacco user within last 30 days Smokeless Tobacco Use:. Cigarettes, Ora (more content not included)... [facility] Comment on above: Result Comment: Elec tronically Signed By: Jerzy VALDERRAMA MD\.br\Date and Time Signed: 05/27/23 12:25 EDT\.br\Electronically Co-Signed By: Kamilah Wallis\Date and Time Co-Signed: 05/27/23 12:22 EDT Lab Reportson 05-09-2023 Lab Reports [id number] .00CD:127 [facility] Outside Colonoscopyon 2022 Outside Colonoscopy [id number] .00CD:127 [facility] Reminderson 04-14-2023 Reminders - From: Shannan Garcia LPN To: N - Clinical; Sent: 04/14/2023 14:17:56 EDT Show up: 03/14/2033 07:00:00 EDT Subject: colonoscopy recall Due Date/Time: 04/13/2033 07:00:00 EDT Reminder/Recall Patient due for screening colonoscopy 04/13/2033. [facility] Pre-Certification Formon Pre-Certification Form [id number]# 1.00CD:127 Normal [facility] Facesheeton 03-23-2023 Facesheet [id number] .00CD:127 [facility] Consent for Procedure/Surger yon 03-21-2023 Consent for Procedure/Surgery [id number] .00CD:127 [facility] Ambulatory Visit Summaryon 0 03-18-2023 Ambulatory Visit Summary WAQAS DO :1965 Visit Date:03/18/2023 Ambulatory Visit Instructions Your Diagnosis Screening for malignant neoplasm of colon Chews tobacco Your Care Team Attending Physician - BRAYDON AMADO, Yosi Banda Primary Care Physician - Kev Moser MD This Is Your Medications List Contact prescribing physician if questions or concerns carvedilol (carvedilol 6.25 mg Tab) doxycycline (doxycycline hyclate 100 mg Cap) irbesartan (irbesartan 300 mg Tab) tamsulosin (tamsulosin 0.4 mg Cap) Procedures Performed Arthroscopy of knee (10/21/2017), excision of bone growth left lower leg, Myringotomy and insertion of short-term grommet. Discharge Vitals Heart Rate (Peripheral) 72 Respiratory Rate 16 Blood Pressure 126/90 Height 183 cm Height 72 in Weight 118 kg Weight 259.6 lb BMI 35.24 What to do next Scheduled Follow-Up Appointments Tuesday 10:30 AM EDT With: DEBBIE AMADO, Jerzy Banda Where: [facility] Patient Educationon 03-18-20 23 Patient Education Infectious Disease Prostatitis Prostatitis is swelling or inflammation of the prostate gland, also called the prostate. This gland is about 1.5 inches wide and 1 inch high, and it is involved in making semen. The prostate is located below a man's bladder, in front of the rectum. There are four types of prostatitis: ? Chronic prostatitis (CP), also called chronic pelvic pain syndrome (CPPS). This is the most common type of prostatitis. It is associated with increased muscle tone in the area between the hip bones (pelvic area), around the prostate. This type is also known as a pelvic floor disorder. ? Chronic bacterial prostatitis. This type usually results from an acute bacterial infection in the prostate gland that keeps coming back or has not been treated properly. The symptoms are less severe than those caused by acute bacterial prostatitis, which lasts a shorter time. ? Asymptomatic inflammatory prostatitis. This type does not have symptoms and does not need treatment. This is diagnosed when tests are done for other disorders of the urinary tract or reproductive tract. ? Acute bacterial prostatitis. This type starts quickly and results from an acute bacterial infection in the prostate gland. It is usually associated with a bladder infection, high fever, and chills. This is the least common type of prostatitis. What are the causes? Bacterial prostatitis is caused by an infection from bacteria. Chronic nonbacterial prostatitis may be caused by: ? Factors related to the nervous system. This system includes thebrain, spinal cord, and nerves. ? An autoimmune response. This happens when the body's disease-fighting system attacks healthy tissue in the body by mistake. ? Psychological factors. These have to do with how the mind works. The causes of the other types of prostatitis are usually not known. What are the signs or symptoms? Symptoms of this condition depend on the type of prostatitis you have. Acute bacterial prostatitis Symptoms may include: ? Pain or burning during urination. ? Frequent and sudden urges to urinate. ? Trouble starting to urinate. ? Fever. ? Chills. ? Pain in your muscles or joints, lower back, or lower abdomen. Other types of prostatitis Symptoms may include: ? Sudden urges to urinate, or urinating often. ? Trouble starting to urinate. ? Weak urine stream. ? Dribbling after urination. ? Discharge coming from the penis. ? Pain in the testicles, the penis, or the tip of the penis. ? Pain in the area in front of the rectum and below the scrotum (perineum). ? Pain when ejaculating. How is this diagnosed? This condition may be diagnosed based on: ? A physical and medical exam. ? A digital rectal exam. For this, the health care provider may use a finger to feel the prostate. ? A urine test to check for bacteria. ? A semen sample or blood tests. ? Ultrasound. ? Urodynamic tests to check how your body handles urine. ? Cystoscopy to look inside your bladder or inside the part of your body that drains urine from the bladder (urethra). How is this treated? Treatment for this condition depends on the type of prostatitis. Treatment may involve: ? Medicines to relieve pain or inflammation, or to help relax your muscles. ? Physical therapy. ? Heat therapy. ? Biofeedback. These techniques help you control certain body functions. ? Relaxation exercises. ? Antibiotic medicine, if your condition is caused by bacteria. ? Sitz baths. These warm water baths help to relax your pelvic floor muscles, which helps to relieve pressure on the prostate. Follow these instructions at home: Medicines ? Take [id number]-[id number] and prescription medicines only as told by your health care provider. ? If you were prescribed an antibiotic medicine, take it as told by your health care provider. Do not stop using the antibiotic even if you start to feel better. Managing pain and swelling ? Take sitz baths as directed by your health care provider. For a sitz bath, sit in warm water that is deep enough to cover your hips and buttocks. ? If directed, apply heat to the affected area as often as told by your health care provider. Use the heat source that your health care provider recommends, such as a moist heat pack or a heating pad. ? Place a towel between your skin and the heat source. ? Leave the heat on for 20?30 minutes. ? Remove the heat if your skin turns bright red. This is especially important if you are unable to feel pain, heat, or cold. You may have a greater risk of getting burned. General instructions ? Do exercises as told by your health care provider, if you were prescribed physical therapy, biofeedback, or relaxation exercises. ? Keep all follow-up visits as told by your health care provider. This is important. Where to find more information ? National [place] of [employer] and Digestive and Kidney Diseases: (more content not included)... Normal [facility] Physician Referralon 023 Physician Referral [id number]# 1.00CD:127 Normal [facility] Screenson 03-18-2023 Screens [id number]# 1.00CD:127 Normal [facility] Urology Office/Clinic Noteon 03-18-2023 Urology Office/Clinic Note Chief Complaint elevated PSA HPI Staff Referral for elevated PSA. Current PSA done 02/25/23 is 6.97 and previous done 09/28/2016 was 2.20. Recent US done of the prostate shows enlarged measuring 6.1 x 5.6 x 4.6cm. Pt has a hx of kidney stones but has not had any for 30 years now. PVR today is 58ml. Dysuria: no Incomplete bladder emptying: less than half of the time per IPSS. Hematuria: no Frequency: almost always Urgency: less than half of the time Nocturia: 3x for about a year Stream: no intermittency or straining Leaking: no Post void dripping: no Wearing pads/ Depends: no Urge incontinence: no Stress incontinence: no Incontinence without Sensory Awareness: no Abdominal pain: no Flank pain: bilateral recently Sexual complaints: no History of Present Illness Tests Reviewed: Reviewed UA, PSA, Prostate US I have reviewed the previous health record information and history for this patient from Dr Kev Moser I have reviewed and verified the staff HPI to be accurate for this encounter. There have been no associated fever, chills, flank pain, or blood in the urine. Denies any urinary infections since last encounter. Review of Systems PHQ Score Initial Depression Screen Score: 0 ROS - Provider Constitutional: denies weight loss, denies hot flashes. Eyes: denies eye problems. Gastrointestinal: denies nausea, denies vomiting. Cardiovascular: denies chest pain or angina. Integumentary: no dryness Musculoskeletal: denies musculoskeletal symptoms. ENMT: denies otolaryngeal symptoms. Respiratory: no shortness of breath. Heme/Lymph: denies easy bleeding tendency, denies easy bruising tendency. Psychiatric: no confusion, no anxiety. Genitourinary: SEE HPI Physical Exam Vitals & Measurements HR: 100(Peripheral) RR: 16 BP: 138/88 HT: 72 in HT: 183 cm WT: 120 kg WT: 264 lb BMI: 35.83 General Appearance: alert, no distress, well nourished, well developed male. Head: normocephalic . Eyes: normal orbit and globe. ENMT: normal examination of external ears. Chest: Lungs CTA, respirations non labored. Cardiovascular: regular rate and rhythm. Abdomen: soft, non distended, no tenderness, no mass or organomegaly, no hernia. Genitourinary: normal scrotum, normal testes, normal urethra, normal epididymis, normal vas deferens/spermatic cord. Flank Pain: none. Bladder: nonpalpable. Penis: normal shaft, normal glans. Prostate: normal prostate, estimated weight 50 gms, no hard nodule observed. Lymph Nodes: unremarkable palpation of the cervical area. Skin: warm, dry, no bruising. Psychiatric: cooperative, affect appropriate for age, normal judgement, euthymic mood. Assessment/Plan 1. Elevated PSA (R97.20: Elevated prostate specific antigen [PSA]) PSA 09/28/2016- 2.20 02/25/23- 6.97 NEG Family Hx of Prostate Cancer. 2. Prostatitis (N41.9: Inflammatory disease of prostate, unspecified) UA today shows SMALL Leuks. Discussed possibility of prostatitis and how it could cause elevated PSA. Will start Doxycycline 100mg BID x4wks. Then repeat PSA. TRUS/Bx if results are the same or higher. 3. BPH with urinary obstruction (N40.1: Benign prostatic hyperplasia with lower urinary tract symptoms) Prostate US 03/16/23 shows enlarged prostate measuring 6.1 x 5.6 x 4.6 cm. 82.7 cc. Grade 3. IPSS 17 QOL 5 No prostate medications at this time. Will start Tamsulosin 0.4mg QD therapy. Discussed the medication side effects, and the patient will monitor closely for these, as well as for symptom improvement. If severe side effects occur, the medication should be stopped and the office notified. 4. History of nephrolithiasis (Z87.442: Personal history of urinary calculi) Asymptomatic. No recent imaging. 5. Family history of bladder cancer (Z80.52: Family history of malignant neoplasm of bladder) Father Other obstructive and reflux uropathy (N13.8: Other obstructive and reflux uropathy) Follow-up With When Contact Information DEBBIE AMADO, DARON Ocampo In 2 months Formerly named [facility] [place] [address]- Additional Instructions: PSA Patient Education Prostatitis I, Divya Landry, personally scribed for Dr. Valderrama on 03/18/2023 12:44:46. . Documentation recorded by the scribe, Divya Landry, accurately reflects the services(s) I performed and decisions made by me. Authenticated by Dr. Valderrama on 03/18/2023 12:47:48. Problem List/Past Medical History Ongoing BPH with urinary obstruction Elevated PSA Family history of bladder cancer History of nephrolithiasis HTN (hypertension) Prostatitis Historical No qualifying data Procedure/Surgical History Arthroscopy of knee (10/21/2017), excision of bone growth left lower leg, Myringotomy and insertion of short-term grommet. Medications carvedilol 6.25 mg Tab irbesartan 300 mg Tab Allergies No Known Allergies Social History (more content not included)... Normal [facility] Comment on above: Result Comment: Elec tronically Signed By: Jerzy VALDERRAMA MD\.br\Date and Time Signed: 03/18/23 12:47 EDT\.br\Electronically Co-Signed By: Divya Landry MA\.br\Date and Time Co-Signed: 03/18/23 12:45 EDT Consultation Noteon 02-28-20 Consultation Note [id number] .00CD:127 [facility] Physician Referralon 023 Physician Referral [id number] .00CD:127 [facility] XR ABD FLAT UP_PA Nando 08-08 XR ABD FLAT UP_PA CH EXAMINATION: XR ABD FLAT UP_PA CH HISTORY: Abdominal pain COMPARISON: Abdomen x-ray 10/10/2018. TECHNIQUE: PA chest and 3 views of the abdomen FINDINGS: The lung parenchyma is free of consolidation or infiltrate. No pneumothorax or pleural effusion. The cardiac, mediastinal and hilar contours are normal. Moderate amount of stool within the adjacent colon. The remainder of the colon exhibits a normal stool burden. No bowel obstruction or free intraperitoneal air. Again demonstrated is the oval calcification overlying the inferior pole left kidney measuring approximately 10 mm on this study. New with the prior study is a 22 x 13.5 mm right and 14 x 10 mm left amorphous calcifications that overlie the L3 transverse processes. The visualized osseous structures exhibit no gross abnormality. Age-related changes of the pubic symphysis, hip joints and sacroiliac joints. Spondylitic changes of the visualized lumbar spine. IMPRESSION: Amorphous calcifications overlying the right and left transverse processes. These may represent sequela from prior tuberculosis. 10 mm calcification overlies the inferior pole the left renal bed. Stool within the ascending colon. Electronically authenticated by: DIDIER LEACH Date: 2022-08-08 20:40 Normal [facility] Vital Signs Date Time Vital Sign Value Performing Clinician Macey maurer 07-01-2023 08:44-0400 Blood Pressure Location Jerzy VALDERRAMA [facility] 07-01-2023 08:44-0400 Diastolic blood pressure 88 mm[Hg] Jerzy VALDERRAMA [facility] 07-01-2023 08:44-0400 Heart rate 100 /min Jerzy VALDERRAMA [facility] 07-01-2023 08:44-0400 Respiratory rate 16 /min Jerzy VALDERRAMA [facility] 07-01-2023 08:44-0400 Systolic blood pressure 149 mm[Hg] Jerzy VALDERRAMA [facility] 03-18-2023 11:44-0400 Blood Pressure Location Jerzy VALDERRAMA [facility] 03-18-2023 11:44-0400 Diastolic blood pressure 88 mm[Hg] Jerzy VALDERRAMA [facility] 03-18-2023 11:44-0400 Heart rate 100 /min Jerzy VALDERRAMA [facility] 03-18-2023 11:[id number] Respiratory rate 16 /min Jerzy DEBBIE [facility] 03-18-2023 11:44-7947 Systolic blood pressure 138 mm[Hg] Jerzy VALDERRAMA [facility] Encounters Encounter Date Encounter Type Care Provider Facility Start: 01-02-2024 ambulatory Jerzy VALDERRAMA [facility]ili [facility] Start: 07-01-2023 End: 07-02-2023 ambulatory Jerzy VALDERRAMA Facility:[facility] Start: 07-01-2023 End: 07-01-2023 Patient encounter procedure Jerzy VALDERRAMA [facility] Start: 06-14-2023 End: 06-15-2023 ambulatory Jerzy VALDERRAMA Facility:[facility] Start: 06-14-2023 End: 06-15-2023 ambulatory Jerzy VALDERRAMA Facility:[facility] [place] Start: 06-14-2023 End: 06-14-2023 Lab Drop off Jerzy VALDERRAMA [facility] Start: 05-27-2023 End: 05-28-2023 ambulatory Jerzy VALDERRAMA Facility:[facility] Start: 04-13-2023 End: 04-14-2023 ambulatory Yosi R BRENDAL Facility:[id number] Start: 03-18-2023 End: 03-19-2023 [facility] Start: 03-18-2023 End: 03-19-2023 ambulatory Jerzy VALDERRAMA Facility:[facility] Start: 03-18-2023 End: 03-18-2023 Patient encounter procedure Jerzy VALDERRAMA [facility] Start: 03-08-2023 ambulatory Yosi BRYSON Facility:[facility] Start: 02-21-2023 ambulatory Yosi Veronika BRYSON Facility :[facility] Start: 08-06-2022 End: 08-07-[address] KEV MOSER Facility:[facility] Procedures Date Procedure Procedure Detail Performing Clinician Start: 06-14-2023 Transrectal biopsy o f prostate using ultrasound guidance Jerzy VALDERRAMA Start: 10-21-2017 Arthroscopy of knee Anna Marie VALDERRAMA Comment on above: left excision of bone lynne wth left lower leg Jerzy VALDERRAMA Myringotomy and inse rtion of short-term tympanic ventilation tube Jerzy VALDERRAMA Comment on above: multiple as a child Immunizations Immunization Date Immunization Notes Care Provider [place] 08-19-2021 SARS-CoV-2 (COVID-19 ) mRNA-1273 vaccine Jerzy VALDERRAMA [facility] Comment on above: Result Comment: 2022: [id number] 07-22-2021 SARS-CoV-2 (COVID-19 ) mRNA-1273 vaccine Jerzy VALDERRAMA [facility] Comment on above: Result Comment: 2022: [id number] Payers Date Payer Category Payer Unknown [id number] 2.16.84 [id number] 1965 Unknown [id number] 2.16.8 [id number] 1966 Unknown [id number] 2.16.8 [id number] 1966 Unknown [id number] 2.16.8 [id number] 1966 Unknown [id number] 2.16.8 [id number] 1966 Unknown [id number] 2.16.8 [id number] 1966 Unknown [id number] 2.16.8 [id number] 1966 Unknown [id number] 2.16.8 [id number] 1966 Unknown [id number] 2.16.8 [id number] 1966 Unknown [id number] 2.16.8 [id number] 1959 Private Health Insurance [id number] Social History Date Type Detail Facility Start: 03-18-2023 End: 05-27-2023 Tobacco smoking status Ex-smoker (finding) [facility] Tobacco smoking status Smokeless tobacco user within last 30 days [facility] Sex Assigned At Male [facility] Functional Status Date Assessment Result Facility 07-01-2023 Functional Status N/A [facility] 03-18-2023 Functional Status N/A [facility] Hospital Discharge instructions 07-01-2023 Note Date & Type Note Facility 07-01-2023 Hospital Discharge instructions Patient Education 07/01/2023 09:24:13 Prostate Cancer Screening Prostate Cancer Screening Prostate cancer screening is testing that is done to check for the presence of prostate cancer in men. The prostate gland is a walnut-sized gland that is located below the bladder and in front of the rectum in males. The function of the prostate is to add fluid to semen during ejaculation. Prostate cancer is one of the most common types of cancer in men. Who should have prostate cancer screening? Screening recommendations vary based on age and other risk factors, as well as between the professional organizations who make the recommendations. In general, screening is recommended if: You are age 50 to 70 and have an average risk for prostate cancer. You should talk with your health care provider about your need for screening and how often screening should be done. Because most prostate cancers are slow growing and will not cause , screening in this age group is generally reserved for men who have a 10- to 15-year life expectancy. You are younger than age 50, and you have these risk factors: ?Having a father, brother, or uncle who has been diagnosed with prostate cancer. The risk is higher if your family member's cancer occurred at an early age or if you have multiple family members with prostate cancer at an early age. ?Being a male who is Black or is of [place] or sub-Saharan descent. In general, screening is not recommended if: You are younger than age 40. You are between the ages of 40 and 49 and you have no risk factors. You are 70 years of age or older. At this age, the risks that screening can cause are greater than the benefits that it may provide. If you are at high risk for prostate cancer, your health care provider may recommend that you have screenings more often or that you start screening at a younger age. How is screening for prostate cancer done? The recommended prostate cancer screening test is a blood test called the prostate-specific antigen (PSA) test. PSA is a protein that is made in the prostate. As you age, your prostate naturally produces more PSA. Abnormally high PSA levels may be caused by: Prostate cancer. An enlarged prostate that is not caused by cancer (benign prostatic hyperplasia, or BPH). This condition is very common in older men. A prostate gland infection (prostatitis) or urinary tract infection. Certain medicines such as male hormones (like testosterone) or other medicines that raise testosterone levels. A rectal exam may be done as part of prostate cancer screening to help provide information about the size of your prostate gland. When a rectal exam is performed, it should be done after the PSA level is drawn to avoid any effect on the results. Depending on the PSA results, you may need more tests, such as: A physical exam to check the size of your prostate gland, if not done as part of screening. Blood and imaging tests. A procedure to remove tissue samples from your prostate gland for testing (biopsy). This is the only way to know for certain if you have prostate cancer. What are the benefits of prostate cancer screening? Screening can help to identify cancer at an early stage, before symptoms start and when the cancer can be treated more easily. There is a small chance that screening may lower your risk of dying from prostate cancer. The chance is small because prostate cancer is a slow-growing cancer, and most men with prostate cancer from a different cause. What are the risks of prostate cancer screening? The main risk of prostate cancer screening is diagnosing and treating prostate cancer that would never have caused any symptoms or problems. This is called overdiagnosisand overtreatment. PSA screening cannot tell you if your PSA is high due to cancer or a different cause. A prostate biopsy is the only procedure to diagnose prostate cancer. Even the results of a biopsy may not tell you if your cancer needs to be treated. Slow-growing prostate cancer may not need any treatment other than monitoring, so diagnosing and treating it may cause unnecessary stress or other side effects. Questions to ask your health care provider When should I start prostate cancer screening? What is my risk for prostate cancer? How often do I need screening? What type of screening tests do I need? How do I get my test results? What do my results mean? Do I need treatment? Where to find more information The [employer]: www.cancer.org [employer]: www.auanet.org Contact a health care provider if: You have difficulty urinating. You have pain when you urinate or ejaculate. You have blood in your urine or semen. You have pain in your back or in the area of your prostate. Summary Prostate cancer is a common type of cancer in men. The prostate gland is located below the bladder and in front of the rectum. This gland adds fluid to semen during ejaculation. Prostate cancer screening may identify cancer at an early stage, when the cancer can be treated more easily and is less likely to have spread to other areas of the body. The prostate-specific antigen (PSA) test is the recommended screening test for prostate cancer, but it has associated risks. Discuss the risks and benefits of prostate cancer screening with your health care provider. If you are age 70 or older, the risks that screening can cause are greater than the benefits that it may provide. This information is not intended to replace advice given to you by your health care provider. Make sure you discuss any questions you have with your health care provider. Document Revised: 03/01/2022 Document Reviewed: 03/01/2022 [employer] Patient Education 2022 [employer]. Follow Up Care 06/02/2023 15:12:45 With:DEBBIE AMADO, Jerzy Banda, URL Address: [facility] [address] [place] [address] [phone] When: Unknown [facility] Clinical Note 03-18-2023 Note Date & Type Note Facility 03-18-2023 Note Chief Complaint consultation for screening colonoscopy HPI Staff 57 year old male presents on consultation from Dr. Moser for screening colonoscopy. Denies abdominal or rectal pain. No rectal bleeding or change in bowel habits. No nausea or vomiting. No unexplained weight loss. Never had colonoscopy in the past. Father with history of colon cancer, diagnosed age early 70's. History of Present Illness 57 yo male with h/o htn, bph, referred for colorectal screening; denies change in bms or blood in stools; no abdominal complaints; denies asa or NSAID use, no SBE prophylaxis; no abdominal operations or previous colonoscopy; fmxh of colon cancer in patient's father, dx in his 70's, no fmhx of IBD; chews tobacco. Review of Systems PHQ Score Initial Depression Screen Score: 0 ROS - Provider Constitutional: no fever, no sweats, no weight loss. Eyes: yes glasses, no blurred vision, no visual loss. ENMT: no dentures, no hoarseness, no swallowing difficulties, no hearing loss, no ear infection(s), no nose bleeds. Cardiovascular: normal blood pressure, no chest pain, regular heartbeat, no heart murmur. Respiratory: no shortness of breath, no cough, no asthma, no wheezing. Gastrointestinal: no nausea, no vomiting, no diarrhea, no constipation, no blood in stool, no change in bowel habits, no abdominal pain, no hepatitis. Genitourinary: no kidney stones, no urine infection, no dysuria. Musculoskeletal: no pain, no weakness. Skin: no changing moles, no rash, no skin lumps. Neurologic: no seizures, no epilepsy, no headache. Psychiatric: no emotional or psychiatric problem. Heme/Lymph: no bleeding problems, no anemia, no blood clots, no transfusions. Allergy/Immunologic: no swollen lymph nodes/glands, no IV drug abuse. Other: Additional ROS info: Except as noted in the above Review of Systems and in the History of Present Illness, all other systems have been reviewed and are negative or noncontributory. Physical Exam Vitals & Measurements HR: 72(Peripheral) RR: 16 BP: 126/90 HT: 72 in HT: 183 cm WT: 118 kg WT: 259.6 lb BMI: 35.24 HEENT: normal conjunctiva, sclera clear, no scleral icterus, EOM intact, PERRLA, oral mucosa moist without lesions. Neck: trachea midline, no mass, symmetric, no thyromegaly or nodules, no adenopathy Respiratory: lungs CTA, respirations non labored. Cardiovascular: regular rate and rhythm, no murmur, no pedal edema or varicosities. Gastrointestinal: soft, non distended, no tenderness, no masses, no palpable hernias, diastasis recti no, no hepatosplenomegaly; normal bs Lymphatic: no cervical adenopathy, no supraclavicular adenopathy. Musculoskeletal: normal gait, digits and nails without infection, nodes, cyanosis, clubbing. Skin: no rashes, no lesions, no ulcers, no subcutaneous nodules, induration. Psychiatric/Neuro: oriented to time, place, person, judgement normal, affect appropriate for age, insight intact, no focal deficits. Tests: review of old records completed, Discussed surgical options, risks, and possible complications with patient. Assessment/Plan 1. Screening for malignant neoplasm of colon (Z12.11: Encounter for screening for malignant neoplasm of colon) plan colonoscopy under anesthesia, informed consent obtained. 2. Chews tobacco (Z72.0: Tobacco use) We strongly recommend to quit tobacco use. Cigarette smoking harms nearly every organ of the body, causes many diseases, and reduces the health of smokers in general. Quitting smoking lowers your risk for smoking-related diseases and can add years to your life. We encourage you to visit www.smokefree.gov access to helpful resources including free telephone support. If you decide on prescription treatment to help you quit, your family doctor would be happy to provide these. Follow-up No qualifying data available Problem List/Past Medical History Ongoing BMI 35.0-35.9,adult BPH with urinary obstruction Chews tobacco Elevated PSA Family history of bladder cancer History of nephrolithiasis HTN (hypertension) Morbid obesity Prostatitis Screening for malignant neoplasm of colon Historical No qualifying data Procedure/Surgical History Arthroscopy of knee (10/21/2017), excision of bone growth left lower leg, Myringotomy and insertion of short-term grommet. Medications carvedilol 6.25 mg Tab doxycycline hyclate 100 mg Cap, 100 mg= 1 cap(s), Oral, BID irbesartan 300 mg Tab tamsulosin 0.4 mg Cap, 0.4 mg= 1 cap(s), Oral, Daily, 11 refills Allergies No Known Allergies Social History Alcohol - Denies Alcohol Use, 09/30/2017 Substance Abuse - Denies Substance Abuse, 09/30/2017 Tobacco - Medium Risk, 10/21/2017 Former smoker, quit more than 30 days ago Tobacco Use:. Smokeless tobacco user within last 30 days Smokeless Tobacco Use:. Cigarettes, Oral, 1 per day. Yes, 03/18/2023 Family History COPD: Father and Brother. Hypertension: Mother. Primary malignant neoplasm of bladder: Father. Primary chris (more content not included)... [facility] Comment on above: Result Comment: Elec tronically Signed By: BRAYDON AMADO, Yosi Guzmán\Date and Time Signed: 03/18/23 14:30 EDT Hospital Discharge instructions 03-18-2023 Note Date & Type Note Facility 03-18-2023 Hospital Discharg e instructions Patient Education 03/18/2023 12:44:01 Prostatitis Prostatitis Prostatitis is swelling or inflammation of the prostate gland, also called the prostate. This gland is about 1.5 inches wide and 1 inch high, and it is involved in making semen. The prostate is located below a man's bladder, in front of the rectum. There are four types of prostatitis: Chronic prostatitis (CP), also called chronic pelvic pain syndrome (CPPS). This is the most common type of prostatitis. It is associated with increased muscle tone in the area between the hip bones (pelvic area), around the prostate. This type is also known as a pelvic floor disorder. Chronic bacterial prostatitis. This type usually results from an acute bacterial infection in the prostate gland that keeps coming back or has not been treated properly. The symptoms are less severe than those caused by acute bacterial prostatitis, which lasts a shorter time. Asymptomatic inflammatory prostatitis. This type does not have symptoms and does not need treatment. This is diagnosed when tests are done for other disorders of the urinary tract or reproductive tract. Acute bacterial prostatitis. This type starts quickly and results from an acute bacterial infection in the prostate gland. It is usually associated with a bladder infection, high fever, and chills. This is the least common type of prostatitis. What are the causes? Bacterial prostatitis is caused by an infection from bacteria. Chronic nonbacterial prostatitis may be caused by: Factors related to the nervous system. This system includes thebrain, spinal cord, and nerves. An autoimmune response. This happens when the body's disease-fighting system attacks healthy tissue in the body by mistake. Psychological factors. These have to do with how the mind works. The causes of the other types of prostatitis are usually not known. What are the signs or symptoms? Symptoms of this condition depend on the type of prostatitis you have. Acute bacterial prostatitis Symptoms may include: Pain or burning during urination. Frequent and sudden urges to urinate. Trouble starting to urinate. Fever. Chills. Pain in your muscles or joints, lower back, or lower abdomen. Other types of prostatitis Symptoms may include: Sudden urges to urinate, or urinating often. Trouble starting to urinate. Weak urine stream. Dribbling after urination. Discharge coming from the penis. Pain in the testicles, the penis, or the tip of the penis. Pain in the area in front of the rectum and below the scrotum (perineum). Pain when ejaculating. How is this diagnosed? This condition may be diagnosed based on: A physical and medical exam. A digital rectal exam. For this, the health care provider may use a finger to feel the prostate. A urine test to check for bacteria. A semen sample or blood tests. Ultrasound. Urodynamic tests to check how your body handles urine. Cystoscopy to look inside your bladder or inside the part of your body that drains urine from the bladder (urethra). How is this treated? Treatment for this condition depends on the type of prostatitis. Treatment may involve: Medicines to relieve pain or inflammation, or to help relax your muscles. Physical therapy. Heat therapy. Biofeedback. These techniques help you control certain body functions. Relaxation exercises. Antibiotic medicine, if your condition is caused by bacteria. Sitz baths. These warm water baths help to relax your pelvic floor muscles, which helps to relieve pressure on the prostate. Follow these instructions at home: Medicines Take bcpp-oga-xoeonzw and prescription medicines only as told by your health care provider. If you were prescribed an antibiotic medicine, take it as told by your health care provider. Do not stop using the antibiotic even if you start to feel better. Managing pain and swelling Take sitz baths as directed by your health care provider. For a sitz bath, sit in warm water that is deep enough to cover your hips and buttocks. If directed, apply heat to the affected area as often as told by your health care provider. Use the heat source that your health care provider recommends, such as a moist heat pack or a heating pad. ?Place a towel between your skin and the heat source. ?Leave the heat on for 20 30 minutes. ?Remove the heat if your skin turns bright red. This is especially important if you are unable to feel pain, heat, or cold. You may have a greater risk of getting burned. General instructions Do exercises as told by your health care provider, if you were prescribed physical therapy, biofeedback, or relaxation exercises. Keep all follow-up visits as told by your health care provider. This is important. Where to find more information National [place] of Diabetes and Digestive and Kidney Diseases: https://www.niddk.nih.gov Contact a health care provider if: Your symptoms get worse. You have a fever. Get help right away if: You have chills. You feel light-headed or feel like you may faint. You cannot urinate. You have blood or blood clots in your urine. Summary Prostatitis is swelling or inflammation of the prostate gland. Treatment for this condition depends on the type of prostatitis. Take badk-eem-cuseqor and prescription medicines only as told by your health care provider. Get help right away of you have chills, feel light-headed, feel like you may faint, cannot urinate, or have blood or blood clots in your urine. This information is not intended to replace advice given to you by your health care provider. Make sure you discuss any questions you have with your health care provider. Document Revised: 10/10/2020 Document Reviewed: 10/10/2020 [employer] Patient Education 2022 [employer] Follow Up Care 03/08/2023 10:24:41 With:DEBBIE AMADO, Jerzy Banda, URL Address: [address] [place] [id number]- When:Within 2 Month(s) Comments:PSA [facility] Evaluation + Plan note Note Date & Type Note Facility Evaluation + Plan note Future Appointments Appointment Date:05/27/2023 10:30:00 AM Scheduled Provider:Jerzy VALDERRAMA MD Location:[facility] Appointment Type:URO Office Visit Diagnostic Tests PendingPSA Total 03/18/23 [facility] Evaluation + Plan note Note Date & Type Note Facility Evaluation + Plan note Future Appointments Appointment Date:07/01/2023 08:45:00 AM Scheduled Provider:Jerzy VALDERRAMA MD Location:[facility] Appointment Type:URO Office Visit Diagnostic Tests PendingProstate Histology ([facility]) 06/14/23 [facility] Evaluation + Plan note Note Date & Type Note Facility Evaluation + Plan note Future Appointments Appointment Date:01/02/2024 10:30:00 AM Scheduled Provider:Jerzy VALDERRAMA MD Location:[facility] Appointment Type:URO Office Visit Diagnostic Tests PendingPSA Total 07/01/23 [facility] Hospital course Narrative Note Date & Type Note Facility Hospital course Narrative No data available for this section [facility] Hospital Discharge instructions Note Date & Type Note Facility Hospital Discharge instructions No data available for this section [facility] Progress note Note Date & Type Note Facility Progress note No data available for this section [facility] Summary Purpose Family History No Family History Records Found No data available for this section No Family History Records Found Advance Directives No Advanced Directives Records FoundNo Advanced Directives Records Found Additional Source Comments (unrecognized sect ion and content) No Status Records FoundNo Status Records Found INFORMATION SOURCE (unrecogn ized section and content) DATE CREATED AUTHOR 08/11/2022 [facility] DATE CREATED AUTHOR AUTHOR'S ORGANIZ ATION 07/02/2023 [facility] Patient Care team informatio n (unrecognized section and content) Personnel Name: Kev Moser MD Address: Address: [address] [place] [address] Personnel Name: Kev Moser MD Address: Address: [address] [place] [address] [place] [address] Personnel Name: Kev Moser MD Address: Address: [address] [place] [address] FOR RECORDS PERTAINING TO PATIENTS WHO ARE OR HAVE BEEN ENROLLED IN A CHEMICAL DEPENDENCY/SUBSTANCEABUSE PROGRAM, SOME INFORMATION MAY BE OMITTED. This clinical summary was aggregated from multiple sources. Caution should be exercised in using it in the provision of clinical care. This summary normalizes information from multiple sources, and as a consequence, information in this document may materially change the coding, format and clinical context of patient data. In addition, data may be omitted in some cases. CLINICAL DECISIONS SHOULD BE BASED ON THE PRIMARY CLINICAL RECORDS. [facility]. provides no warranty or guarantee of the accuracy or completeness of information in this document.
[2023-10-07 08:06] LABS: Basophils Absolute Auto 0.1 10^3/uL (0.0-0.1); Basophils Percent Auto 0.4 % (0.2-2.0); Eosinophils Absolute Auto 0.1 10^3/uL (0.0-0.7); Eosinophils Percent Auto 0.8 % (0.9-7.0); Hematocrit 46.5 % (42.0-54.0); Immature Granulocytes Abs Auto 0.14 10^3/uL (0.00-0.03); Immature Granulocytes Pct Auto 1.1 % (0.0-0.5); Lymphocytes Percent Auto 15.4 % (20.5-60.0); Mean Corpuscular HGB Conc 34.4 g/dL (29.9-35.2); Mean Corpuscular Volume 84.2 fL (80.0-94.0); Mean Platelet Volume 10.3 fL (9.5-13.5); Monocytes Percent Auto 7.6 % (1.7-12.0); Neutrophils Absolute Auto 9.6 10^3/uL (1.4-6.5); Neutrophils Percent Auto 74.7 % (43.0-75.0); Platelet Count 359 10^3/uL (150-450); Red Blood Count 5.52 10^6/uL (4.70-6.10); Red Cell Distribution Width 11.5 % (11.0-15.0); White Blood Count 12.9 10^3/uL (4.0-11.0)
--- NOTE | 2023-10-07 08:06 | CT_ITS ---
The [address] [address] Patient Name: WAQAS DO MRN: [id number] date: 1965 Sex: M Assigned Patient Location: CT Current Patient Location: CT Accession/Order Number: [id number] Exam Date: 10/07/2023 08:41 Report Date: 10/07/2023 09:14 At the request of: KEV HUGO Procedure: CT angio chest CT angio chest: 10/07/2023 8:41 AM EST CLINICAL HISTORY: 58 years old Male with Dyspnea R06.00, COVID 19 U07.1, Pneumonia J18.9. TECHNIQUE: CT angio chest was performed with axial CT images through the thorax as well as sagittal, coronal and oblique reformations also obtained after intravenous administration of intravenous contrast. COMPARISON: None FINDINGS: There are no filling defects in the main central pulmonary arteries. The heart is not enlarged. There is no pericardial effusion. No enlarged mediastinal or perihilar lymph nodes are noted. Scattered dependent atelectasis and groundglass attenuation. There is no pneumothorax or pleural effusion. The visualized portion of the upper abdomen is grossly unremarkable. The osseous structures are unremarkable. CT/CT angio chest IMPRESSION: No pulmonary venous. No thoracic dissection or aneurysm. Multifocal pneumonia and scattered dependent atelectasis. Repeat CT in 6 months is recommended to assess for residual disease. Electronically authenticated by: POLLY BLEDSOE Date: 10/07/2023 09:14
[2023-10-07 08:35] LABS: Alanine Aminotransferase 36 U/L (16-63); Albumin Globulin Ratio 0.6; Albumin Level 2.9 g/dL (3.4-5.0); Alkaline Phosphatase 103 U/L (46-116); Anion Gap 13.3; Aspartate Amino Transferase 12 U/L (15-37); BUN Creatinine Ratio 20.3; Bilirubin Total 1.2 mg/dL (0.2-1.0); Calcium 9.2 mg/dL (8.5-10.1); Carbon Dioxide 25.9 mmol/L (21.0-32.0); Chloride 88 mmol/L (98-107); Estimated GFR (African America 45 (>=60); Estimated GFR (Non-African Ame 37 (>=60); Globulin 4.5 g/dL; Glucose 495 mg/dL (74-106); Potassium 5.2 mmol/L (3.5-5.1); Total Protein 7.4 g/dL (6.4-8.2)
[2023-10-07 08:40] LABS: Sodium 122 mmol/L (136-145)
[2023-10-07 09:04] LABS: Free T4 1.36 ng/dL (0.76-1.46)
[2023-10-07 09:34] LABS: Chol HDL Ratio 6.4; Cholesterol 249 mg/dL (<=200); HDL Cholesterol 39 mg/dL (40-60); Thyroid Stimulating Hormone 1.928 uIU/mL (0.358-3.740); Triglycerides 301 mg/dL (<=150); VLDL CHOLESTEROL 60.2 mg/dL
== END 2023-10-07 07:48 | disposition home or self-care (01) ==
LOC: CT 07:47
PROVIDERS: PCP Family Medicine; Visit Provider Family Medicine
DX: R06.00 Dyspnea, unspecified (principal); I10 Essential (primary) hypertension; J18.9 Pneumonia, unspecified organism; U07.1 COVID-19; E86.0 Dehydration
CPT/HCPCS: 36415; 71275; 80053; 80061; 84439; 84443; 85025; 87070; 87106; 87205; 96360; 96366; G0103; Q9966

== ENCOUNTER 2023-10-07 09:46 | Outpatient (OUT) | payer OTHER, SELFPAY ==
--- OUTSIDE RECORDS SUMMARY | 2023-10-07 09:51 | XMS_ITS | CCD ---
Author Name Unknown Address [address] [facility] [address] [place] [address] Organization [facility] Care Team Providers Care Rn Mds Name Role Phone DR KEV MOSER Admitting Unavailable OANH, DR ANGULO Attending Unavailable OANH, DR ANGULO Primary Care Unavailable OANH, DR ANGULO Consulting Unavailable DDIIER LEACH Consulting Unavailable Kev Moser Primary Care Physician Yosi BRYSON Attending Unavailable VALDERRAMA, Jerzy Bnada Attending Unavailable VALDERRAMA, Jerzy Banda Attending Unavailable [...] 6.25 mg oral tablet (3 sources) alpha-Adrenergic Wily, beta-Adrenergic Wily Start: 03-18-2023 carvedilol 6.25 mg Tab Refills(s) 0 Start Date: 03/18/23 Status: Ordered ciprofloxacin 500 mg oral tablet (1 source) Quinolone Antimicrobial Start: 05-27-2023 End: 06-17-2023 take 1 tablet by mouth twice daily Cipro 500 mg Tab 500 mg = 1 tab(s), Oral, BID, X 3 week(s), # 42 tab(s), Refills(s) 0, Pharmacy: [facility]/pharmacy #[id number], 183, cm, 05/27/23 11:32:00 EDT, Height/Length [...] week(s), # 56 cap(s), Refills(s) 0, Pharmacy: [facility]/pharmacy #[id number], 183, cm, 03/18/23 11:48:00 EDT, Height/Length [...] Daily, # 30 cap(s), Refills(s) 11, Pharmacy: [facility]/pharmacy #[id number], 183, cm, 03/18/23 11:48:00 EDT, Height/Length [...] Test Name Value Interpretation Reference Range [facility] ity Ambulatory Visit Summaryon 1 Ambulatory Visit [...] Jerzy VALDERRAMA MD Where: [facility] Patient Educationon 07-01-20 23 Patient Education Oncology [...] Where to find more information ? The [place] [employer]: www.cancer.org ? [place] [employer] Association: www.auanet.org Contact a health care [...] flu (more content not included)... Normal [facility] Urology Office/Clinic Noteon 07-01-2023 Urology Office/Clinic [...] sxs improve. -Begin Dutasteride. Rx sent to [facility]. 3. Prostatitis (N41.9: Inflammatory disease of prostate, unspecified) Pt was given Cipro 500mg BID x3w. Completed abx course with sx improvement. Denies any pain or pressure. 4. History of nephrolithiasis (Z87.442: Personal history of urinary calculi) Asymptomatic. No recent imaging. Follow-up With When Contact Information Jerzy VALDERRAMA MD, URL [facility] [address], [place] [address]- [phone] Additional Instructions: 6 mos w/ PSA Patient [...] colon Historical (more content not included)... Normal [facility] Comment on above: Result Comment: Elec tronically Signed By: Jerzy VALDERRAMA MD\.br\Date and Time Signed: 07/01/23 09:34 EDT\.br\Electronically Co-Signed By: Ramona Whitlock\.br\Date and Time Co-Signed: 07/01/23 09:32 EDT Prostate Histology ([facility]) on 06-23-2023 Prostate Histology Diagnosis Info Invalid Interpretation Code [facility] Comment on above: Result Comment: A:Pr ostate,Left Lateral Base:Needle Biopsy Interpretation - - Benign prostatic tissue. MicroScopic Description - B:Prostate,Left Lateral Mid:Needle Biopsy Interpretation - - Benign prostatic tissue. MicroScopic Description - C:Prostate,Left Lateral [place]:Needle Biopsy Interpretation - - Benign prostatic tissue. MicroScopic Description - D:Prostate,Left Base:Needle Biopsy Interpretation - - Benign prostatic tissue. MicroScopic Description - E:Prostate,Left Mid:Needle Biopsy Interpretation - - Benign prostatic tissue. MicroScopic Description - F:Prostate,Left [place]:Needle Biopsy Interpretation - - Benign prostatic tissue. MicroScopic Description - G:Prostate,Right Base:Needle Biopsy Interpretation - - Benign prostatic tissue with patchy mild acute chronic inflammation. MicroScopic Description - H:Prostate,Right Mid:Needle Biopsy Interpretation - - Benign prostatic tissue. MicroScopic Description - I:Prostate,Right [place]:Needle Biopsy Interpretation - - Benign prostatic tissue with patchy mild acute chronic inflammation. MicroScopic Description - J:Prostate,Right Lateral Base:Needle Biopsy Interpretation - - Benign prostatic tissue. MicroScopic Description - K:Prostate,Right Lateral Mid:Needle Biopsy Interpretation - - Benign prostatic tissue. MicroScopic Description - L:Prostate,Right Lateral [place]:Needle Biopsy Interpretation - - Benign prostatic tissue [...] fixative Formalin cores 1 units cm CPT: 41777 x 12 Electronically signed by : on: 06/23/2023 10:59:54 Performed By: #### 1 [id number] ####[facility] [address] [place] [address] Consent for Procedure/Surger yon 06-15-2023 Consent for Procedure/Surgery [id number]#1 .00CD:127 Normal [facility] Ambulatory Visit Summaryon 0 06-14-2023 Ambulatory Visit [...] AMADO, Jerzy Banda Where: [facility] [place] Invalid Interpretation Code BPH with urinary obstruction [facility] Patient Educationon 06-14-20 23 Patient Education Oncology [...] near your rectum, especially while sitting. ? [place]-colored urine due to small amounts of blood in your urine. ? A burning feeling while urinating. ? Blood in your stool (feces) or bleeding from your rectum. ? Blood in your semen. Follow these instructions at home: Medicines ? Take bqeu-deu-rianvtz and prescription medicines only as told by [...] provider. Document Revised: 03/01/2022 Document Reviewed: 03/01/2022 [employer] Patient Education ? 2022 [employer] Normal [facility] Prostate Histology ([facility]) on 06-14-2023 PH Method of Extraction Needle Biopsy Normal [facility] Comment on above: Performed By: #### 1 [id number] ####[facility] [address] [place] [address] PH Number of Jars 2 Invalid Interpretation Code [facility] Comment on above: Performed By: #### 1 [id number] ####[facility] [address] [place] [address] PH Specimen 1 R Base Prostate Normal [facility] Comment on above: Performed By: #### 1 [id number] ####[facility] [address] [place] [address] PH Specimen 10 L Lat Mid Prost Normal [facility] Comment on above: Performed By: #### 1 [id number] ####[facility] [address] [place] [address] PH Specimen 11 L Apx Prostate Normal [facility] Comment on above: Performed By: #### 1 [id number] ####[facility] [address] [place] [address] PH Specimen 12 L Lat Apx Prost Normal [facility] Comment on above: Performed By: #### 1 [id number] ####[facility] [address] [place] [address] PH Specimen 2 R Lat Bse Prost Normal [facility] Comment on above: Performed By: #### 1 [id number] ####[facility] [address] [place] [address] PH Specimen 3 R Mid Prostate Normal [facility] Comment on above: Performed By: #### 1 [id number] ####[facility] [address] [place] [address] PH Specimen 4 R Lat Mid Prost Normal [facility] Comment on above: Performed By: #### 1 [id number] ####[facility] [address] [place] [address] PH Specimen 5 R Apx Prostate Normal [facility] Comment on above: Performed By: #### 1 [id number] ####[facility] [address] [place] [address] PH Specimen 6 R Lat Apx Prost Normal [facility] Comment on above: Performed By: #### 1 [id number] ####[facility] [address] [place] [address] PH Specimen 7 L Base Prostate Normal [facility] Comment on above: Performed By: #### 1 [id number] ####[facility] [address] [place] [address] PH Specimen 8 L Lat Bse Prost Normal [facility] Comment on above: Performed By: #### 1 [id number] ####[facility] [address] [place] [address] PH Specimen 9 L Mid Prostate Normal [facility] Comment on above: Performed By: #### 1 [id number] ####[facility] [address] [place] [address] PH Type of Service Technical Only Normal [facility] Comment on above: Performed By: #### 1 [id number] ####[facility] [address] [place] [address] Urology Office/Clinic Noteon 06-14-2023 Urology Office/Clinic Note [...] [facility] [address] [place] [address] [phone] Additional Instructions: f/u sched on 07/01/23 Patient [...] data Procedur (more content not included)... Normal [facility] Comment on above: Result Comment: Elec tronically [...] Urnls Dip Stick Auto w/o Microscopy POC 46872 Your Care Team Attending Physician - Jerzy [...] with DEBBIE AMADO, DARON Ocampo When: Where: [address] [place], [place] [id number]- Medications What How Much When Instructions New ciprofloxacin (Cipro 500 mg Tab) 1 Tablets By Mouth 2 times a day Duration: 3 Weeks Pickup at [facility]/pharmacy #[id number] Unchanged tamsulosin (tamsulosin 0.4 mg Cap) 1 Capsules By Mouth Every day Unchanged carvedilol (carvedilol 6.25 mg Tab) Contact prescribing physician if questions or concerns Unchanged irbesartan (irbesartan 300 mg Tab) Contact prescribing physician if questions or concerns Pharmacy Information [facility]/pharmacy #[id number]: [address] [place], [place] [id number] [phone] Test Results Urnls Dip Stick Auto w/o Microscopy POC 32905 (05/27/2023) Bilirubin Urine Dipstick - Negative Blood Urine Dipstick - Trace-intact Glucose Urine Dipstick - Negative Ketones Urine Dipstick - Negative Leukocytes Urine Dipstick - Negative Nitrite Urine Dipstick - Negative Protein Urine Dipstick - Negative Specific [place] Urine Dipstick - 1.020 Urine Appearance Urine [...] (pr (more content not included)... Normal [facility] Patient Educationon 05-27-20 Patient Education Oncology [...] Where to find more information ? The [place] [employer]: www.cancer.org ? [place] [employer] Association: www.auanet.org Contact a health care [...] flu (more content not included)... Normal [facility] Urology Office/Clinic Noteon 05-27-2023 Urology Office/Clinic [...] Contact Information DEBBIE AMADO, Jerzy Banda, URL [facility] [place] [id number]- Additional Instructions: Schedule TRUS/bx Patient Education Prostate [...] Use:. Cigarettes, Ora (more content not included)... [facility] Comment on above: Result Comment: Elec tronically Signed By: Jerzy VALDERRAMA MD\.br\Date and Time Signed: 05/27/23 12:25 EDT\.br\Electronically Co-Signed By: Kamilah Wallis\Date and Time Co-Signed: 05/27/23 12:22 EDT Lab Reportson 05-09-2023 Lab Reports [id number]#1 .00CD:127 [facility] Outside Colonoscopyon 2022 Outside Colonoscopy [id number]#1 .00CD:127 [facility] Reminderson 04-14-2023 Reminders - From: Shannan Garcia LPN To: N - Clinical; Sent: 04/14/2023 14:17:56 EDT Show up: 03/14/2033 07:00:00 EDT Subject: colonoscopy recall Due Date/Time: 04/13/2033 07:00:00 EDT Reminder/Recall Patient due for screening colonoscopy 04/13/2033. [facility] Pre-Certification Formon Pre-Certification Form [id number]# 1.00CD:127 Normal [facility] Facesheeton 03-23-2023 Facesheet [id number]#1 .00CD:127 [facility] Consent for Procedure/Surger yon 03-21-2023 Consent for Procedure/Surgery [id number]#1 .00CD:127 [facility] Ambulatory Visit Summaryon 0 03-18-2023 Ambulatory Visit [...] AMADO, Jerzy Banda Where: [facility] Patient Educationon 03-18-20 23 Patient Education Infectious [...] these instructions at home: Medicines ? Take bwcs-kzb-rgdfucz and prescription medicines only as told by [...] Where to find more information ? National [place] of Diabetes and Digestive and Kidney Diseases: (more content not included)... Normal [facility] Physician Referralon 023 Physician Referral [id number]# 1.00CD:127 Normal [facility] Screenson 03-18-2023 Screens [id number]# 1.00CD:[address] [facility] Urology Office/Clinic Noteon 03-18-2023 Urology Office/Clinic [...] DEBBIE AMADO, DARON Ocampo In 2 months [facility] [place] [address]- Additional Instructions: PSA Patient Education Prostatitis I, [...] Social History (more content not included)... Normal [facility] Comment on above: Result Comment: Elec tronically Signed By: Jerzy VALDERRAMA MD\.br\Date and Time Signed: 03/18/23 12:47 EDT\.br\Electronically Co-Signed By: Divya Landry MA\.br\Date and Time Co-Signed: 03/18/23 12:45 EDT Consultation Noteon 02-28-20 Consultation Note [id number]#1 .00CD:127 [facility] Physician Referralon 023 Physician Referral [id number]#1 .00CD:127 [facility] XR ABD FLAT UP_PA Nando 08-08 XR [...] by: DIDIER LEACH Date: 2022-08-08 20:40 Normal [facility] Vital Signs Date Time Vital Sign Value Performing Clinician Macey maurer 07-01-2023 08:44-0400 Blood Pressure Location Jerzy VALDERRAMA [facility] 07-01-2023 08:44-0400 Diastolic blood pressure 88 mm[Hg] Jerzy VALDERRAMA [facility] 07-01-2023 08:44-0400 Heart rate 100 /min Jerzy VALDERRAMA [facility] 07-01-2023 08:44-0400 Respiratory rate 16 /min Jerzy VALDERRAMA [facility] 07-01-2023 08:44-0400 Systolic blood pressure 149 mm[Hg] Jerzy VALDERRAMA [facility] 03-18-2023 11:44-0400 Blood Pressure Location Jerzy VALDERRAMA [facility] 03-18-2023 11:44-0400 Diastolic blood pressure 88 mm[Hg] Jerzy VALDERRAMA [facility] 03-18-2023 11:44-0400 Heart rate 100 /min Jerzy VALDERRAMA [facility] 03-18-2023 11:440400 Respiratory rate 16 /min Jerzy DEBBIE [facility] 03-18-2023 11:44-8605 Systolic blood pressure 138 mm[Hg] Jerzy VALDERRAMA [facility] Encounters Encounter Date Encounter Type Care Provider Facility Start: 01-02-2024 ambulatory Jerzy VALDERRAMA Facili ty:[facility] Start: 07-01-2023 End: 07-02-2023 ambulatory Jerzy VALDERRAMA Facility:[facility] Start: 07-01-2023 End: 07-01-2023 Patient encounter procedure Jerzy VALDERRAMA [facility] Start: 06-14-2023 End: 06-15-2023 ambulatory Jerzy VALDERRAMA Facility:[facility] Start: 06-14-2023 End: 06-15-2023 ambulatory Jerzy VALDERRAMA Facility:[facility] Start: 06-14-2023 End: 06-14-2023 Lab Drop off Jerzy VALDERRAMA [facility] Start: 05-27-2023 End: 05-28-2023 ambulatory Jerzy VALDERRAMA Facility:[facility] Start: 04-13-2023 End: 04-14-2023 ambulatory Yosi R BRENDAL Facility:[id number] Start: 03-18-2023 End: 03-19-2023 ambulatory Yosi R BRENDAL Facility:[facility]ue Start: 03-18-2023 End: 03-19-2023 ambulatory Jerzy VALDERRAMA Facility:[facility] Start: 03-18-2023 End: 03-18-2023 Patient encounter procedure Jerzy VALDERRAMA [facility] Start: 03-08-2023 ambulatory Yosi BRYSON Facility:[facility] [...] ) mRNA-1273 vaccine Jerzy VALDERRAMA [facility] Comment on above: Result Comment: 2022: [id number] 07-22-2021 SARS-CoV-2 (COVID-19 ) mRNA-1273 vaccine Jerzy VALDERRAMA [facility] Comment on above: Result Comment: 2022: TPV50 Payers Date Payer Category Payer Unknown [id number] 2.16.84 [id number] 1966 Unknown [id number] 2.16.8 [id number] 1966 Unknown [id number] 2.16.8 [id number] 1966 Unknown [id number] 2.16.8 [id number] 1966 Unknown [id number] 2.16.8 [id number] 1966 Unknown [id number] 2.16.8 [id number] 1966 Unknown [id number] 2.16.8 [id number] 1966 Unknown [id number] 2.16.8 [id number] 1966 Unknown [id number] 2.16.8 [id number] 1966 Unknown [id number] 2.16.8 [id number] 1959 Private Health Insurance [id number] Social History Date Type Detail Facility Start: 03-18-2023 End: 05-27-2023 Tobacco smoking status Ex-smoker (finding) [facility] Tobacco smoking status Smokeless tobacco user within last 30 days [facility] Sex Assigned At Male [facility] Functional Status Date Assessment Result Facility 07-01-2023 Functional Status N/A [facility] 03-18-2023 Functional Status N/A [facility] Hospital Discharge instructions 07-01-2023 Note Date & [...] treatment? Where to find more information The [place] [employer]: www.cancer.org [place] [employer] Association: www.auanet.org Contact a health care [...] provider. Document Revised: 03/01/2022 Document Reviewed: 03/01/2022 [employer] Patient Education 2022 [employer]. Follow Up Care 06/02/2023 15:12:45 With:DEBBIE AMAOD, Jerzy Banda, URL Address: [facility] [address] [place] [address] [phone] When: Unknown [facility] Clinical Note 03-18-2023 Note Date [...] Father. Primary chris (more content not included)... [facility] Comment on above: Result Comment: Elec tronically [...] Follow these instructions at home: Medicines Take nbya-lfc-boahvmn and prescription medicines only as told by [...] important. Where to find more information National [place] of Diabetes and Digestive and Kidney Diseases: [...] depends on the type of prostatitis. Take ldcn-dqa-pdqfere and prescription medicines only as told by [...] provider. Document Revised: 10/10/2020 Document Reviewed: 10/10/2020 [employer] Patient Education 2022 [employer] Follow Up Care 03/08/2023 10:24:41 With:DEBBIE AMADO, Jerzy Banda, URL Address: [address] [place] [address]- When:Within 2 Month(s) Comments:PSA [facility] Evaluation + Plan note Note Date & Type Note Facility Evaluation + Plan note Future Appointments Appointment Date:05/27/2023 10:30:00 AM Scheduled Provider:Jerzy VALDERRAMA MD Location:[facility] Appointment Type:URO Office Visit Diagnostic Tests PendingPSA Total 03/18/23 [facility] Evaluation + Plan note Note Date & Type Note Facility Evaluation + Plan note Future Appointments Appointment Date:07/01/2023 08:45:00 AM Scheduled Provider:Jerzy VALDERRAMA MD Location:[facility] Appointment Type:URO Office Visit Diagnostic Tests PendingProstate Histology ([facility]) 06/14/23 [facility] Evaluation + Plan note Note Date & Type Note Facility Evaluation + Plan note Future Appointments Appointment Date:01/02/2024 10:30:00 AM Scheduled Provider:Jerzy VALDERRAMA MD Location:[facility] Appointment Type:URO Office Visit Diagnostic Tests PendingPSA Total 07/01/23 [facility] Hospital course Narrative Note Date & Type Note Facility Hospital course Narrative No data available for this section [facility] Hospital Discharge instructions Note Date & Type Note Facility Hospital Discharge instructions No data available for this section [facility] Progress note Note Date & Type Note Facility Progress note No data available for this section [facility] Summary Purpose Family History No Family History Records Found No data available for this section No Family History Records Found Advance Directives No Advanced Directives Records FoundNo Advanced Directives Records Found Additional Source Comments (unrecognized sect ion and content) No Status Records FoundNo Status Records Found INFORMATION SOURCE (unrecogn ized section and content) DATE CREATED AUTHOR 08/11/2022 [employer] [facility] DATE CREATED AUTHOR AUTHOR'S ORGANIZ ATION 07/02/2023 [facility] Patient Care team informatio n (unrecognized section and content) Personnel Name: Kev Moser MD Address: Address: [address] [place] [address] Personnel Name: Kev Moser MD Address: Address: [address] [place] [address] [place] [address] Personnel Name: Kev Moser MD Address: Address: [address] [place] [address] FOR RECORDS PERTAINING TO PATIENTS WHO [...] BE BASED ON THE PRIMARY CLINICAL RECORDS. [facility]. provides no warranty or guarantee of the accuracy or completeness of information in this document.
[2023-10-07] MEDS: 0.9 % SODIUM CHLORIDE 2,000 ML 1000 ML IV (10:09)
[2023-10-07 10:17] VITALS: BP 134/87; PULSE 100; RESP 18; TEMP 35.9; O2SAT 95
--- NOTE | 2023-10-07 10:22 | PC.NURSE ---
1000 Arrival per wheelchair, accompanied per . Alert oriented, lungs clear to auscuclatation. heart tones strong and regular. #20 iv initiated left forearm on 1st attempt, tolerated well, excellent blood return noted. IV NSS initiated at 999ml/hr.
--- NOTE | 2023-10-07 11:00 | PC.NURSE ---
1100 1st liter of ns infused, 2nd initiated. eyes shut, respirations with ease,
[2023-10-07 12:10] VITALS: BP 133/78; PULSE 86; RESP 18; TEMP 36.2; O2SAT 95
== END 2023-10-07 09:47 | disposition home or self-care (01) ==
PROVIDERS: PCP Family Medicine; Visit Provider Family Medicine
DX: E86.0 Dehydration (principal)
CPT/HCPCS: 96360; 96366

== ENCOUNTER 2023-10-10 13:58 | Outpatient (OUT) | payer OTHER, SELFPAY ==
--- OUTSIDE RECORDS SUMMARY | 2023-10-10 14:06 | XMS_ITS | CCD ---
Author Name Unknown Address [address] [facility] [address] [place] [id number] Organization [facility] Care Team Providers Care Receptionist Scheduler Name Role Phone DR KEV MOSER Admitting Unavailable OANH, DR ANGULO Attending Unavailable OANH, DR ANGULO Primary Care Unavailable OANH, DR ANGULO Consulting Unavailable DIDIER LEACH Consulting Unavailable Kev Moser Primary Care Physician Yosi BYRSON Attending Unavailable VALDERRAMA, Jerzy Banda Attending Unavailable [...] week(s), # 42 tab(s), Refills(s) 0, Pharmacy: [facility]/pharmacy #[id number], 183, cm, 05/27/23 11:32:00 EDT, [...] week(s), # 56 cap(s), Refills(s) 0, Pharmacy: [facility]/pharmacy #[id number], 183, cm, 03/18/23 11:48:00 EDT, [...] Daily, # 30 cap(s), Refills(s) 11, Pharmacy: [facility]/pharmacy #[id number], 183, cm, 03/18/23 11:48:00 EDT, [...] Results Test Name Value Interpretation Reference Range [facility] Ambulatory Visit Summaryon 1 Ambulatory Visit [...] Jerzy VALDERRAMA MD Where: [facility] Patient Educationon 07-01-20 23 Patient [...] Where to find more information ? The [place] Cancer Society: www.cancer.org ? [place] Urological Association: www.auanet.org Contact a health care [...] flu (more content not included)... Normal [facility] Urology Office/Clinic Noteon 07-01-2023 Urology Office/Clinic Note [...] sxs improve. -Begin Dutasteride. Rx sent to [facility]. 3. Prostatitis (N41.9: Inflammatory disease of prostate, unspecified) Pt was given Cipro 500mg BID x3w. Completed abx course with sx improvement. Denies any pain or pressure. 4. History of nephrolithiasis (Z87.442: Personal history of urinary calculi) Asymptomatic. No recent imaging. Follow-up With When Contact Information Jerzy VALDERRAMA MD, URL [facility] [address], [place] [phone] Additional Instructions: 6 mos w/ PSA Patient [...] colon Historical (more content not included)... Normal [facility] Comment on above: Result Comment: Elec tronically Signed By: Jerzy VALDERRAMA MD\.br\Date and Time Signed: 07/01/23 09:34 EDT\.br\Electronically Co-Signed By: Ramona Whitlock\.br\Date and Time Co-Signed: 07/01/23 09:32 EDT Prostate Histology ([facility]) on 06-23-2023 Prostate Histology Diagnosis Info Invalid Interpretation Code [facility] Comment on above: Result Comment: A:Pr ostate,Left Lateral Base:Needle Biopsy Interpretation - - Benign prostatic tissue. MicroScopic Description - B:Prostate,Left Lateral Mid:Needle Biopsy Interpretation - - Benign prostatic tissue. MicroScopic Description - C:Prostate,Left Lateral [place]:Needle Biopsy Interpretation - - Benign prostatic tissue. MicroScopic Description - D:Prostate,Left Base:Needle Biopsy Interpretation - - Benign prostatic tissue. MicroScopic Description - E:Prostate,Left Mid:Needle Biopsy Interpretation - - Benign prostatic tissue. MicroScopic Description - F:Prostate,Left [place]:Needle Biopsy Interpretation - - Benign prostatic tissue. MicroScopic Description - G:Prostate,Right Base:Needle Biopsy Interpretation - - Benign prostatic tissue with patchy mild acute chronic inflammation. MicroScopic Description - H:Prostate,Right Mid:Needle Biopsy Interpretation - - Benign prostatic tissue. MicroScopic Description - I:Prostate,Right [place]:Needle Biopsy Interpretation - - Benign prostatic tissue with patchy mild acute chronic inflammation. MicroScopic Description - J:Prostate,Right Lateral Base:Needle Biopsy Interpretation - - Benign prostatic tissue. MicroScopic Description - K:Prostate,Right Lateral Mid:Needle Biopsy Interpretation - - Benign prostatic tissue. MicroScopic Description - L:Prostate,Right Lateral [place]:Needle Biopsy Interpretation - - Benign prostatic tissue [...] fixative Formalin cores 1 units cm CPT: 50980 x 12 Electronically signed by : on: 06/23/2023 10:59:54 Performed By: #### 1 [id number] ####[facility] [address] [place] [address] Consent for Procedure/Surger yon 06-15-2023 Consent for Procedure/Surgery [id number] .00CD:127 Normal [facility] Ambulatory Visit Summaryon 0 06-14-2023 Ambulatory Visit Summary WAQAS DO :1965 Visit Date:06/14/2023 Ambulatory Visit Instructions Your Diagnosis Elevated PSA BPH with urinary obstruction Prostatitis History of nephrolithiasis Your Care Team Attending Physician - DEBBIE AMADO, Jrezy Banda Primary Care Physician - Kev Moser [...] AMADO, Jerzy Banda Where: [facility] [place] Invalid Interpretation Code BPH with urinary obstruction [facility] Patient Educationon 06-14-20 23 Patient [...] near your rectum, especially while sitting. ? [place]-colored urine due to small amounts of blood in your urine. ? A burning feeling while urinating. ? Blood in your stool (feces) or bleeding from your rectum. ? Blood in your semen. Follow these instructions at home: Medicines ? Take ubdj-ufw-akoyfcc and prescription medicines only as told by [...] provider. Document Revised: 03/01/2022 Document Reviewed: 03/01/2022 [employer] Patient Education ? 2022 [employer] Normal [facility] Prostate Histology ([facility]) on 06-14-2023 PH Method of Extraction Needle Biopsy Normal [facility] Comment on above: Performed By: #### 1 [id number] ####[facility] [address] [place] [address] PH Number of Jars 2 Invalid Interpretation Code [facility] Comment on above: Performed By: #### 1 [id number] ####[facility] [address] [place] [address] PH Specimen 1 R Base Prostate Normal [facility] Comment on above: Performed By: #### 1 [id number] ####[facility] [address] [place] [address] PH Specimen 10 L Lat Mid Prost Normal [facility] Comment on above: Performed By: #### 1 [id number] ####[facility] [address] [place] [address] PH Specimen 11 L Apx Prostate Normal [facility] Comment on above: Performed By: #### 1 [id number] ####[facility] [address] [place] [address] PH Specimen 12 L Lat Apx Prost Normal [facility] Comment on above: Performed By: #### 1 [id number] ####[facility] [address] [place] [address] PH Specimen 2 R Lat Bse Prost Normal [facility] Comment on above: Performed By: #### 1 [id number] ####[facility] [address] [place] [address] PH Specimen 3 R Mid Prostate Normal [facility] Comment on above: Performed By: #### 1 [id number] ####[facility] [address] [place] [address] PH Specimen 4 R Lat Mid Prost Normal [facility] Comment on above: Performed By: #### 1 [id number] ####[facility] [address] [place] [address] PH Specimen 5 R Apx Prostate Normal [facility] Comment on above: Performed By: #### 1 [id number] ####[facility] [address] [place] [address] PH Specimen 6 R Lat Apx Prost Normal [facility] Comment on above: Performed By: #### 1 [id number] ####[facility] [address] [place] [address] PH Specimen 7 L Base Prostate Normal [facility] Comment on above: Performed By: #### 1 [id number] ####[facility] [address] [place] [address] PH Specimen 8 L Lat Bse Prost Normal [facility] Comment on above: Performed By: #### 1 [id number] ####[facility] [address] [place] [address] PH Specimen 9 L Mid Prostate Normal [facility] Comment on above: Performed By: #### 1 [id number] ####[facility] [address] [place] [address] PH Type of Service Technical Only Normal Fi cindy [facility] Comment on above: Performed By: #### 1 [id number] ####[facility] [address] [place] [address] Urology Office/Clinic Noteon 06-14-2023 Urology Office/Clinic Note [...] [facility] [address] [place] [phone] Additional Instructions: f/u sched on 07/01/23 Patient [...] data Procedur (more content not included)... Normal [facility] Comment on above: Result Comment: [...] Urnls Dip Stick Auto w/o Microscopy POC 12869 Your Care Team Attending Physician - Jerzy [...] with DEBBIE AMADO, DARON Ocampo When: Where: [address] [place], [place] [id number]- Medications What How Much When Instructions New ciprofloxacin (Cipro 500 mg Tab) 1 Tablets By Mouth 2 times a day Duration: 3 Weeks Pickup at [facility]/pharmacy #[id number] Unchanged tamsulosin (tamsulosin 0.4 mg Cap) 1 Capsules By Mouth Every day Unchanged carvedilol (carvedilol 6.25 mg Tab) Contact prescribing physician if questions or concerns Unchanged irbesartan (irbesartan 300 mg Tab) Contact prescribing physician if questions or concerns Pharmacy Information [facility]/pharmacy #[id number]: [address], [place] [id number] [phone] Test Results Urnls Dip Stick Auto w/o Microscopy POC 16767 (05/27/2023) Bilirubin Urine Dipstick - Negative Blood Urine Dipstick - Trace-intact Glucose Urine Dipstick - Negative Ketones Urine Dipstick - Negative Leukocytes Urine Dipstick - Negative Nitrite Urine Dipstick - Negative Protein Urine Dipstick - Negative Specific [place] Urine Dipstick - 1.020 Urine Appearance Urine [...] (pr (more content not included)... Normal [facility] Patient Educationon 05-27-20 Patient Education Oncology Prostate [...] Where to find more information ? The [place] Cancer Society: www.cancer.org ? [place] Urological Association: www.auanet.org Contact a health care [...] flu (more content not included)... Normal [facility] Urology Office/Clinic Noteon 05-27-2023 Urology Office/Clinic Note [...] Contact Information DEBBIE AMADO, Jerzy Banda, URL [facility] [place] [id number]- Additional Instructions: Schedule TRUS/bx Patient Education Prostate [...] Use:. Cigarettes, Ora (more content not included)... [facility] Comment on above: Result Comment: Elec tronically Signed By: Jerzy VALDERRAMA MD\.br\Date and Time Signed: 05/27/23 12:25 EDT\.br\Electronically Co-Signed By: Kamilah Wallis\Date and Time Co-Signed: 05/27/23 12:22 EDT Lab Reportson 05-09-2023 Lab Reports [id number] .00CD:127 [facility] Outside Colonoscopyon 2022 Outside Colonoscopy [id number]#1 .00CD:127 [facility] Reminderson 04-14-2023 Reminders - From: Shannan Garcia LPN To: N - Clinical; Sent: 04/14/2023 14:17:56 EDT Show up: 03/14/2033 07:00:00 EDT Subject: colonoscopy recall Due Date/Time: 04/13/2033 07:00:00 EDT Reminder/Recall Patient due for screening colonoscopy 04/13/2033. [facility] Pre-Certification Formon Pre-Certification Form [id number]# 1.00CD:127 Normal [facility] Facesheeton 03-23-2023 Facesheet [id number] .00CD:127 [facility] Consent for Procedure/Surger yon 03-21-2023 Consent for Procedure/Surgery [id number]#1 .00CD:127 [facility] Ambulatory Visit Summaryon 0 03-18-2023 Ambulatory [...] AMADO, Jerzy Banda Where: [facility] Patient Educationon 03-18-20 23 Patient [...] these instructions at home: Medicines ? Take xrgu-uwf-qxvbptm and prescription medicines only as told by [...] Where to find more information ? National [place] of Diabetes and Digestive and Kidney Diseases: (more content not included)... Normal [facility] Physician Referralon 023 Physician Referral [id number]# 1.00CD:127 Normal [facility] Screenson 03-18-2023 Screens [id number]# 1.00CD:127 Normal Balaji [facility] Urology Office/Clinic Noteon 03-18-2023 Urology Office/Clinic Note [...] DEBBIE AMADO, DARON Ocampo In [address] [facility] [place] [address]- Additional Instructions: PSA Patient Education Prostatitis I, [...] Social History (more content not included)... Normal [facility] Comment on above: Result Comment: Elec tronically Signed By: Jerzy VALDERRAMA MD\.br\Date and Time Signed: 03/18/23 12:47 EDT\.br\Electronically Co-Signed By: Divya Landry MA\.br\Date and Time Co-Signed: 03/18/23 12:45 EDT Consultation Noteon 02-28-20 Consultation Note [id number] .00CD:127 [facility] Physician Referralon 023 Physician Referral [id number] .00CD:127 [facility] XR ABD FLAT UP_PA Nando 08-08 [...] by: DIDIER LEACH Date: 2022-08-08 20:40 Normal [facility] Vital Signs Date Time Vital Sign Value Performing Clinician Macey maurer 07-01-2023 08:44-0400 Blood Pressure Location Jerzy VALDERRAMA [facility] 07-01-2023 08:44-0400 Diastolic blood pressure 88 mm[Hg] Jerzy VALDERRAMA [facility] 07-01-2023 08:44-0400 Heart rate 100 /min Jerzy VALDERRAMA [facility] 07-01-2023 08:44-0400 Respiratory rate 16 /min Jerzy VALDERRAMA [facility] 07-01-2023 08:44-0400 Systolic blood pressure 149 mm[Hg] Jerzy VALDERRAMA [facility] 03-18-2023 11:44-0400 Blood Pressure Location Jerzy VALDRERAMA [facility] 03-18-2023 11:44-0400 Diastolic blood pressure 88 mm[Hg] Jerzy VALDERRAMA [facility] 03-18-2023 11:44-0400 Heart rate 100 /min Jerzy VALDERRAMA [facility] 03-18-2023 11:440400 Respiratory rate 16 /min Jerzy DEBBIE [facility] 03-18-2023 11:44-2431 Systolic blood pressure 138 mm[Hg] Jerzy VALDERRAMA [facility] Encounters Encounter Date Encounter Type Care Provider Facility Start: 01-02-2024 ambulatory Jerzy VALDERRAMA Facili ty:[facility] Start: 07-01-2023 End: 07-02-2023 ambulatory Jerzy VALDERRAMA Facility:[facility] Start: 07-01-2023 End: 07-01-2023 Patient encounter procedure Jerzy VALDERRAMA [facility] Start: 06-14-2023 End: 06-15-2023 ambulatory Jerzy VALDERRAMA Facility:[facility] Start: 06-14-2023 End: 06-15-2023 ambulatory Jerzy VALDERRAMA Facility:[facility] [place] Start: 06-14-2023 End: 06-14-2023 Lab Drop off Jerzy VALDERRAMA [facility] Start: 05-27-2023 End: 05-28-2023 ambulatory Jerzy VALDERRAMA Facility:[facility] [place] Start: 04-13-2023 End: 04-14-2023 ambulatory Yosi R BRENDAL Facility:[id number] Start: 03-18-2023 End: 03-19-2023 ambulatory Yosi R BRENDAL [facility] Start: 03-18-2023 End: 03-19-2023 ambulatory Jerzy VALDERRAMA Facility:[facility] Start: 03-18-2023 End: 03-18-2023 Patient encounter procedure Jerzy VALDERRAMA [facility] Start: 03-08-2023 ambulatory Yosi BRYSON Facility:[facility] [...] ) mRNA-1273 vaccine Jerzy VALDERRAMA [facility] Comment on above: Result Comment: 2022: [id number] 07-22-2021 SARS-CoV-2 (COVID-19 ) mRNA-1273 vaccine Jerzy VALDERRAMA [facility] Comment on above: Result Comment: 2022: TPV50 Payers Date Payer Category Payer Unknown [id number] 2.16.84 [id number] 1965 Unknown [id number] 2.16.8 [id number] 1965 Unknown [id number] 2.16.8 [id number] 1965 Unknown [id number] 2.16.8 [id number] 1965 Unknown [id number] 2.16.8 [id number] 1965 Unknown [id number] 2.16.8 [id number] 1965 Unknown [id number] 2.16.8 [id number] 1965 Unknown [id number] 2.16.8 [id number] 1965 Unknown [id number] 2.16.8 [id number] 1965 Unknown [id number] 2.16.8 [id number] 1958 Private Health Insurance [id number] Social History Date Type Detail Facility Start: 03-18-2023 End: 05-27-2023 Tobacco smoking status Ex-smoker (finding) [facility] Tobacco smoking status Smokeless tobacco user within last 30 days [facility] [place] Sex Assigned At Male [facility] Functional Status Date Assessment Result Facility 07-01-2023 Functional Status N/A [facility] 03-18-2023 Functional Status N/A [facility] Hospital Discharge instructions 07-01-2023 Note Date [...] treatment? Where to find more information The [place] Cancer Society: www.cancer.org [place] Urological Association: www.auanet.org Contact a health care [...] provider. Document Revised: 03/01/2022 Document Reviewed: 03/01/2022 [employer] Patient Education 2022 [employer]. Follow Up Care 06/02/2023 15:12:45 With:DEBBIE AMADO, Jerzy Banda, URL Address: [facility] [address] [place] [phone] When: Unknown [facility] Clinical Note 03-18-2023 Note Date & [...] Father. Primary chris (more content not included)... [facility] Comment on above: Result Comment: [...] Follow these instructions at home: Medicines Take izfp-mee-uwlpxut and prescription medicines only as told by [...] important. Where to find more information National [place] of Diabetes and Digestive and Kidney Diseases: [...] depends on the type of prostatitis. Take ivil-oqo-abdcvnf and prescription medicines only as told by [...] provider. Document Revised: 10/10/2020 Document Reviewed: 10/10/2020 [employer] Patient Education 2022 [employer] Follow Up Care 03/08/2023 10:24:41 With:DEBBIE AMADO, Jerzy Banda, URL Address: [address] [place] [address]- When:Within 2 Month(s) Comments:PSA [facility] Evaluation + Plan note Note Date & Type Note Facility Evaluation + Plan note Future Appointments Appointment Date:05/27/2023 10:30:00 AM Scheduled Provider:Jerzy VALDERRAMA MD Location:[facility] Appointment Type:URO Office Visit Diagnostic Tests PendingPSA Total 03/18/23 [facility] Evaluation + Plan note Note Date & Type Note Facility Evaluation + Plan note Future Appointments Appointment Date:07/01/2023 08:45:00 AM Scheduled Provider:Jerzy VALDERRAMA MD Location:[facility] Appointment Type:URO Office Visit Diagnostic Tests PendingProstate Histology ([facility]) 06/14/23 [facility] Evaluation + Plan note Note Date & Type Note Facility Evaluation + Plan note Future Appointments Appointment Date:01/02/2024 10:30:00 AM Scheduled Provider:Jerzy VALDERRAMA MD Location:[facility] Appointment Type:URO Office Visit Diagnostic Tests PendingPSA Total 07/01/23 [facility] Hospital course Narrative Note Date & Type Note Facility Hospital course Narrative No data available for this section [facility] Hospital Discharge instructions Note Date & Type Note Facility Hospital Discharge instructions No data available for this section [facility] Progress note Note Date & Type Note Facility Progress note No data available for this section [facility] Summary Purpose Family History No Family History Records Found No data available for this section No Family History Records Found Advance Directives No Advanced Directives Records FoundNo Advanced Directives Records Found Additional Source Comments (unrecognized sect ion and content) No Status Records FoundNo Status Records Found INFORMATION SOURCE (unrecogn ized section and content) DATE CREATED AUTHOR 08/11/2022 [facility] [place] DATE CREATED AUTHOR AUTHOR'S ORGANIZ ATION 07/02/2023 [facility] Patient Care team informatio n (unrecognized section and content) Personnel Name: Kev Moser MD Address: Address: [address] [place] [address] Personnel Name: Kev Moser MD Address: Address: [address] [place] [address] [place] [address] Personnel Name: Kev Moser MD Address: Address: [address] [place] [address] FOR RECORDS PERTAINING TO PATIENTS WHO [...] BE BASED ON THE PRIMARY CLINICAL RECORDS. [facility]. provides no warranty or guarantee of the accuracy or completeness of information in this document.
--- NOTE | 2023-10-10 14:32 | CA_ITS ---
Patient Name: WAQAS DO MR#: [id number] : 1965 Exam Date: 10/10/2023 Ordering Doctor: DR Surendra Moser . ECHOCARDIOGRAM REPORT PROCEDURE: CA ECHO DOPPLER COMPLETE INDICATIONS: Dyspnea, hypertension, recent Covid (08/2023) COMPARISON: None. DESCRIPTION: COMPLETE ECHOCARDIOGRAM Real-time transthoracic echocardiography with 2D, M-mode, spectral and color flow Doppler performed. QUALITY: Technical quality was good. 72 , 244#, BSA 2.32 m2 LEFT VENTRICLE: Normal chamber size. Thickened septal wall. LV EF: Global left ventricular systolic function is hyperdynamic; visually estimated ejection fraction is 65 to 70%. No wall motion abnormalities. DIASTOLIC: Diastolic function is indeterminate. ATRIAL SEPTUM: Inadequately seen. LEFT ATRIUM: Normal chamber size. RIGHT ATRIUM: Normal chamber size. RIGHT VENTRICLE: Normal chamber size. Normal right ventricular systolic function. TRICUSPID VALVE: Normal mobility and thickness. No stenosis with trivial regurgitation. Doppler studies reveal mildly (35-45) elevated right sided pressures. RVSP 43 mmHg MITRAL VALVE: Normal mobility and thickness. No evidence of mitral valve stenosis. There is no mitral annular calcification. No mitral regurgitation. AORTIC VALVE: Normal trileaflet appearance. No visible sclerosis. Normal leaflet mobility. No evidence of aortic valve stenosis. No aortic regurgitation. AORTIC ROOT: Normal diameter and appearance. PULMONIC VALVE: Normal thickness and mobility. No stenosis. No regurgitation. PERICARDIUM: Anterior free space; trivial effusion versus fat pad. IVC: Collapses with inspirations. IVC is normal in size. CONCLUSION: 1. Global left ventricular systolic function is hyperdynamic; visually estimated ejection fraction is 65 to 70% 2. Normal right ventricular size and systolic function 3. Diastolic function is indeterminate 4. Mildly elevated right ventricular systolic pressure; RVSP 43 mmHg 5. No significant valvular abnormalities 6. Anterior free space; trivial effusion versus fat pad Adult Echocardiography Procedure Report Left Ventricle LVEDD (3.7 - 5.6 cm): 4.74 cm LVESD (2.2 - 4.0 cm): 3.92 cm LVIVS thickness (0.6 - 1.2 cm): 1.70 cm LVPW thickness (0.5 - 1.0 cm): 0.95 cm e': 0.09 m/s E - e': 5.39 LVOT Max Gradient: 3.61 mm[Hg] LVOT Area (cm2): 0.95 m/s Peak Velocity (LVOT): 0.95 m/s Mean Velocity (LVOT): 0.67 m/s LVOT Diameter 3.01 cm Left Atrium LA Volume Index (2D A2C): 21.09 ml/m2 Left Atrium Systolic Dimension: 3.91 cm Mitral Valve MV E to A Ratio: 0.73 Mitral Valve A-Wave Peak Velocity: 0.67 m/s Mitral Valve E-Wave Peak Velocity: 0.49 m/s Right Ventricle Aorta AO Root Diam: 3.50 cm Ascending Ao Diam: 3.20 cm Aortic Valve AoV Area (Peak Johnson): 5.97 cm2, 5.97 cm2 AoV Area (VTI): 6.46 cm2, 6.46 cm2 Peak Velocity(Antegrade Flow): 1.13 m/s Peak Gradient(Antegrade Flow): 5.08 mm[Hg] Mean Velocity(Antegrade Flow): 0.78 m/s Mean Gradient(Antegrade Flow): 2.65 mm[Hg] Velocity Time Integral: 17.31 cm Tricuspid Valve Peak Velocity (Regurgitant Flow): 3.15 m/s Pulmonic Valve Mean Gradient: 5.85 mm[Hg], 8.09 mm[Hg], 7.34 mm[Hg], 8.28 mm[Hg], 6.12 mm[Hg] Mean Velocity: 1.15 m/s, 1.35 m/s, 1.29 m/s, 1.37 m/s, 1.13 m/s Peak Velocity: 1.95 m/s Peak Gradient: 12.79 mm[Hg], 17.27 mm[Hg], 15.32 mm[Hg], 16.61 mm[Hg], 14.45 mm[Hg] Right Atrium Right Atrium Systolic Pressure: 51.72 ml, 51.72 ml Dictated by: Tisha Medina M.D. on 10/11/2023 at 10:19 Approved by: Tisha Medina M.D. on 10/11/2023 at 10:22
== END 2023-10-10 13:59 | disposition home or self-care (01) ==
LOC: CARD 13:59
PROVIDERS: PCP Family Medicine; Visit Provider Family Medicine
DX: R06.00 Dyspnea, unspecified (principal); I10 Essential (primary) hypertension; J18.9 Pneumonia, unspecified organism; U07.1 COVID-19
CPT/HCPCS: 93306

== ENCOUNTER 2023-11-07 06:59 | Outpatient (RCR) | payer OTHER, SELFPAY | END 2023-11-18 12:59 | disposition home or self-care (01) | LOC: CR 06:59 | PROVIDERS: PCP Family Medicine; Visit Provider Family Medicine | DX: U09.9 Post COVID-19 condition, unspecified (principal) | CPT/HCPCS: G0237; G0239 ==

== ENCOUNTER 2024-01-02 07:43 | Outpatient (OUT) | payer OTHER, SELFPAY ==
--- OUTSIDE RECORDS SUMMARY | 2024-01-02 07:49 | XMS_ITS | CCD ---
Author Organization [facility] Care Team Providers Care Sports Equipment Supervisor Name Role Phone DR KEV MOSER Admitting [...] Attending Unavailable VALDERRAMA, Jerzy Banda Admitting Unavailable NILLYosi Attending Unavailable NILL, Yosi Banda Attending Unavailable Kev Moesr Referring Unavailable Medications Current Medications Medication Drug [...] week(s), # 42 tab(s), Refills(s) 0, Pharmacy: [facility]/pharmacy #[id number], 183, cm, 05/27/23 11:32:00 EDT, Height/Length Dosing, 120, kg, 05/27/23 11:32:00 EDT, Weight Dosing Start Date: 05/27/23 Stop Date: 06/17/23 Status: Ordered doxycycline hyclate 100 mg oral capsule (1 source) Tetracycline-class Drug Start: 03-18-2023 End: 07-28-2023 take 1 capsule by mouth twice daily doxycycline hyclate 100 mg Cap 100 mg = 1 cap(s), Oral, BID, X 4 week(s), # 56 cap(s), Refills(s) 0, Pharmacy: [facility]/pharmacy #[id number], 183, cm, 03/18/23 11:48:00 EDT, Height/Length [...] Daily, # 30 cap(s), Refills(s) 11, [id number] 183, cm, 03/18/23 11:48:00 EDT, Height/Length [...] Results Test Name Value Interpretation Reference [facility] 1 Ambulatory Visit Summary WAQAS DO :1965 Visit Date:07/01/2023 Ambulatory Visit Instructions Your [...] AMADO, Jerzy Banda [facility] Patient Educationon 07-01-20 23 Patient [...] Where to find more information ? The [place] [employer]: www.cancer.org ? [place] [employer] Association: www.auanet.org Contact a health care [...] flu (more content not included)... Normal [place] [facility] Urology Office/Clinic Noteon 07-01-2023 Urology Office/Clinic [...] sxs improve. -Begin Dutasteride. Rx sent to [facility]. 3. Prostatitis (N41.9: Inflammatory disease of prostate, unspecified) Pt was given Cipro 500mg BID x3w. Completed abx course with sx improvement. Denies any pain or pressure. 4. History of nephrolithiasis (Z87.442: Personal history of urinary calculi) Asymptomatic. No recent imaging. Follow-up With When Contact Information Jezry VALDERRAMA MD, URL [facility] [address], [place] [address] [phone] Additional Instructions: 6 mos w/ PSA Patient Education Prostate Cancer Screening Ramona Biggs, personally scribed for Dr. Valderrama on 07/01/2023 09:32:13. . Documentation recorded by the scribe, Ramona Whitlock, accurately reflects the services(s) I performed and decisions made by me. Authenticated by Dr. Valderrama on 07/01/2023 09:34:30. Problem List/Past Medical History Ongoing BMI 35.0-35.9,adult BPH with urinary obstruction Chews tobacco Elevated PSA Family history of bladder cancer History of nephrolithiasis HTN (hypertension) Morbid obesity Prostatitis Screening for malignant neoplasm of colon Historical (more content not included)... Normal [facility] Comment on above: Result Comment: Elec tronically Signed By: Jerzy VALDERRAMA MD\.br\Date and Time Signed: 07/01/23 09:34 EDT\.br\Electronically Co-Signed By: Ramona Whitlock\.br\Date and Time Co-Signed: 07/01/23 09:32 EDT Prostate Histology ([facility]) on 06-23-2023 Prostate Histology Diagnosis Info Invalid Interpretation Code [facility] Comment on above: Result Comment: A:Pr ostate,Left Lateral Base:Needle Biopsy Interpretation - - Benign prostatic tissue. MicroScopic Description - B:Prostate,Left Lateral Mid:Needle Biopsy Interpretation - - Benign prostatic tissue. MicroScopic Description - C:Prostate,Left Lateral [place]:Needle Biopsy Interpretation - - Benign prostatic tissue. MicroScopic Description - D:Prostate,Left Base:Needle Biopsy Interpretation - - Benign prostatic tissue. MicroScopic Description - E:Prostate,Left Mid:Needle Biopsy Interpretation - - Benign prostatic tissue. MicroScopic Description - F:Prostate,Left [place]:Needle Biopsy Interpretation - - Benign prostatic tissue. MicroScopic Description - G:Prostate,Right Base:Needle Biopsy Interpretation - - Benign prostatic tissue with patchy mild acute chronic inflammation. MicroScopic Description - H:Prostate,Right Mid:Needle Biopsy Interpretation - - Benign prostatic tissue. MicroScopic Description - I:Prostate,Right [place]:Needle Biopsy Interpretation - - Benign prostatic tissue with patchy mild acute chronic inflammation. MicroScopic Description - J:Prostate,Right Lateral Base:Needle Biopsy Interpretation - - Benign prostatic tissue. MicroScopic Description - K:Prostate,Right Lateral Mid:Needle Biopsy Interpretation - - Benign prostatic tissue. MicroScopic Description - L:Prostate,Right Lateral [place]:Needle Biopsy Interpretation - - Benign prostatic tissue [...] fixative Formalin cores 1 units cm CPT: 25671 x 12 Electronically signed by : on: 06/23/2023 10:59:54 Performed By: #### 1 [id number] ####[facility] [address] [place] [address] Consent for Procedure/Surger yon 06-15-2023 Consent for Procedure/Surgery [id number]#1 .00CD:127 Normal [facility] Ambulatory Visit Summaryon 0 06-14-2023 Ambulatory Visit [...] AMADO, Jerzy Banda Where: [facility] Invalid Interpretation Code BPH with urinary obstruction [facility] Patient Educationon 06-14-20 Patient Education Oncology Transrectal Ultrasound-Guided Prostate Biopsy, [...] near your rectum, especially while sitting. ? [place]land-colored urine due to small amounts of blood in your urine. ? A burning feeling while urinating. ? Blood in your stool (feces) or bleeding from your rectum. ? Blood in your semen. Follow these instructions at home: Medicines ? Take ujfx-kjg-ieuzonq and prescription medicines only as told by [...] provider. Document Revised: 03/01/2022 Document Reviewed: 03/01/2022 [employer] Patient Education ? 2022 [employer] Normal [facility] Prostate Histology ([facility]) on 06-14-2023 PH Method of Extraction Needle Biopsy Normal [facility] Comment on above: Performed By: #### 1 [id number] ####[facility] [address] [place] [address] PH Number of Jars 2 Invalid Interpretation Code [facility] Comment on above: Performed By: #### 1 [id number] ####[facility] [address] [place] [address] PH Specimen 1 R Base Prostate Normal [facility] Comment on above: Performed By: #### 1 [id number] ####[facility] [address] [place] [address] PH Specimen 10 L Lat Mid Prost Normal [facility] [facility] Comment on above: Performed By: #### 1 [id number] ####[facility] [address] [place] [address] PH Specimen 11 L Apx Prostate Normal [facility] Comment on above: Performed By: #### 1 [id number] ####[facility] [address] [place] [address] PH Specimen 12 L Lat Apx Prost Normal [facility] Comment on above: Performed By: #### 1 [id number] ####[facility] [address] [place] [address] PH Specimen 2 R Lat Bse Prost Normal [facility] Comment on above: Performed By: #### 1 [id number] ####[facility] [address] [place] [address] PH Specimen 3 R Mid Prostate Normal [facility] Comment on above: Performed By: #### 1 [id number] ####[facility] [address] [place] [address] PH Specimen 4 R Lat Mid Prost Normal [facility] Comment on above: Performed By: #### 1 [id number] ####[facility] [address] [place] [address] PH Specimen 5 R Apx Prostate Normal [facility] Comment on above: Performed By: #### 1 [id number] ####[facility] [address] [place] [address] PH Specimen 6 R Lat Apx Prost Normal [facility] Comment on above: Performed By: #### 1 [id number] ####[facility] [address] [place] [address] PH Specimen 7 L Base Prostate Normal [facility] Comment on above: Performed By: #### 1 [id number] ####[facility] [address] [place] [address] PH Specimen 8 L Lat Bse Prost Normal [facility] Comment on above: Performed By: #### 1 [id number] ####[facility] [address] [place] [address] PH Specimen 9 L Mid Prostate Normal [facility] Comment on above: Performed By: #### 1 [id number] ####[facility] [address] [place] [address] PH Type of Service Technical Only Normal Arash white [facility] Comment on above: Performed By: #### 1 [id number] ####[facility] [address] [place] [address] Urology Office/Clinic Noteon 06-14-2023 Urology Office/Clinic Note [...] Jerzy Banda, URL [facility] [address], [place] [address]- [phone] Additional Instructions: f/u sched on 07/01/23 Patient Education Transrectal Ultrasound-Guided Prostate Biopsy, Care After I, Ramona Whitlock, personally scribed for Dr. Valderrama on 06/14/2023 16:39:55. . Documentation recorded by the scribe, Ramona Whitlock, accurately reflects the services(s) I performed and decisions made by me. Authenticated by Dr. Valderrama on 06/14/2023 16:41:17. Problem List/Past Medical History Ongoing BMI 35.0-35.9,adult BPH with urinary obstruction Chews tobacco Elevated PSA Family history of bladder cancer History of nephrolithiasis HTN (hypertension) Morbid obesity Prostatitis Screening for malignant neoplasm of colon Historical No qualifying data Procedur (more content not included)... Normal [facility] Comment on above: Result Comment: Elec [...] Urnls Dip Stick Auto w/o Microscopy POC 44899 Your Care Team Attending Physician - Jerzy [...] with DEBBIE AMADO, DARON Ocampo When: Where: [address] [place] [address]- Medications What How Much When Instructions New ciprofloxacin (Cipro 500 mg Tab) 1 Tablets By Mouth 2 times a day Duration: 3 Weeks Pickup at [facility]/pharmacy #[id number] Unchanged tamsulosin (tamsulosin 0.4 mg Cap) 1 Capsules By Mouth Every day Unchanged carvedilol (carvedilol 6.25 mg Tab) Contact prescribing physician if questions or concerns Unchanged irbesartan (irbesartan 300 mg Tab) Contact prescribing physician if questions or concerns Pharmacy Information [facility]/pharmacy #[id number]: [address], [place] [id number] [phone] Test Results Urnls Dip Stick Auto w/o Microscopy POC 15439 (05/27/2023) Bilirubin Urine Dipstick - Negative Blood Urine Dipstick - Trace-intact Glucose Urine Dipstick - Negative Ketones Urine Dipstick - Negative Leukocytes Urine Dipstick - Negative Nitrite Urine Dipstick - Negative Protein Urine Dipstick - Negative Specific [place] Urine Dipstick - 1.020 Urine Appearance Urine [...] infection (pr (more content not included)... Normal [facility] Patient Educationon 05-27-20 Patient Education Oncology Prostate [...] Where to find more information ? The [place] Cancer [employer]: www.cancer.org ? [place] [employer] Association: www.auanet.org Contact a health care [...] flu (more content not included)... Normal [place] [facility] Urology Office/Clinic Noteon 05-27-2023 Urology Office/Clinic [...] Contact Information DEBBIE AMADO, Jerzy Banda, URL [address] [place], [place] [id number]- Additional Instructions: Schedule TRUS/bx Patient Education Prostate [...] Use:. Cigarettes, Ora (more content not included)... [facility] Comment on above: Result Comment: Elec tronically Signed By: Jerzy VALDERRAMA MD\.br\Date and Time Signed: 05/27/23 12:25 EDT\.br\Electronically Co-Signed By: Kamilah Wallis.br\Date and Time Co-Signed: 05/27/23 12:22 EDT Lab Reportson 05-09-2023 Lab Reports [id number]#1 .00CD:127 [facility] Outside Colonoscopyon 2022 Outside Colonoscopy [id number]#1 .00CD:127 [facility] Reminderson 04-14-2023 Reminders - From: Shannan Garcia LPN To: GSN - Clinical; Sent: 04/14/2023 14:17:56 EDT Show up: 03/14/2033 07:00:00 EDT Subject: colonoscopy recall Due Date/Time: 04/13/2033 07:00:00 EDT Reminder/Recall Patient due for screening colonoscopy 04/13/2033. [facility] Pre-Certification Formon Pre-Certification Form [id number]# 1.00CD:127 [facility] Facesheeton 03-23-2023 Facesheet [id number]#1 .00CD:127 Normal [facility] Consent for Procedure/Surger yon 03-21-2023 Consent for Procedure/Surgery [id number]#1 .00CD:127 Normal [facility] Ambulatory Visit Summaryon 0 03-18-2023 Ambulatory [...] AMADO, Jerzy Banda Where: [facility] Patient Educationon 03-18-20 23 Patient Education [...] these instructions at home: Medicines ? Take lgpi-yhp-voopsgm and prescription medicines only as told by [...] Where to find more information ? National [place] of Diabetes and Digestive and Kidney Diseases: (more content not included)... Normal [facility] Physician Referralon 023 Physician Referral [id number]# 1.00CD:127 [facility] Screenson 03-18-2023 Screens [id number]# 1.00CD:127 [facility] Urology Office/Clinic Noteon 03-18-2023 Urology Office/Clinic Note [...] When Contact Information DEBBIE AMADO, Jerzy Banda, DARON In 2 months [facility] [place] [address]- Additional Instructions: PSA Patient Education Prostatitis I, Divya Landry, personally scribed for Dr. Valderrama on 03/18/2023 12:44:46. . Documentation recorded by the sunshineibDivya schwarz, accurately reflects the services(s) I performed and [...] Social History (more content not included)... Normal [facility] Comment on above: Result Comment: Elec tronically Signed By: DEBBIE AMADO, Jerzy Banda\.br\Date and Time Signed: 03/18/23 12:47 EDT\.br\Electronically Co-Signed By: Frantz HUDDLESTON, Divya Chandra\.br\Date and Time Co-Signed: 03/18/23 12:45 EDT Consultation Noteon 02-28-20 Consultation Note [id number] .00CD:127 [facility] Physician Referralon 023 Physician Referral [id number] .00CD:127 [facility] XR ABD FLAT UP_PA Nando 08-08 XR [...] by: DIDIER LEACH Date: 2022-08-08 20:40 Normal [facility] Vital Signs Date Time Vital Sign Value Performing Clinician Barbarai libertad 07-01-2023 08:44-0400 Blood Pressure Location Jerzy VALDERRAMA [facility] 07-01-2023 08:44-0400 Diastolic blood pressure 88 mm[Hg] Jerzy VALDERRAMA [facility] 07-01-2023 08:44-0400 Heart rate 100 /min Jerzy VALDERRAMA [facility] 07-01-2023 08:44-0400 Respiratory rate 16 /min Jerzy VALDERRAMA [facility] 07-01-2023 08:44-0400 Systolic blood pressure 149 mm[Hg] Jerzy VALDERRAMA [facility] 03-18-2023 11:44-0400 Blood Pressure Location Jerzy VALDERRAMA [facility] 03-18-2023 11:44-0400 Diastolic blood pressure 88 mm[Hg] Jerzy VALDERRAMA [facility] 03-18-2023 11:44-0400 Heart rate 100 /min Jerzy VALDERRAMA [facility] 06-30-2023 11:44-0400 Respiratory rate 16 /min Jerzytorres VALDERRAMA [facility] 03-18-2023 11:44-0913 Systolic blood pressure 138 mm[Hg] Jerzy VALDERRAMA [facility] Encounters Encounter Date Encounter Type Care Provider Facility Start: 01-02-2024 ambulatory Jerzy VALDERRAMA Facili ty:[facility] Start: 07-01-2023 End: 07-02-2023 ambulatory Jerzy VALDERRAMA Facility:[facility] Start: 07-01-2023 End: 07-01-2023 Patient encounter procedure Jezry VALDERRAMA [facility] Start: 06-14-2023 End: 06-15-2023 ambulatory Jerzy VALDERRAMA Facility:[facility] Start: 06-14-2023 End: 06-15-2023 ambulatory Jerzy VALDERRAMA Facility:[facility] [place] Start: 06-14-2023 End: 06-14-2023 Lab Drop off Jerzy VALDERR[facility] Start: 05-27-2023 End: 05-28-2023 ambulatory Jerzy VALDERRAMA Facility:[facility] Start: 04-13-2023 End: 04-14-2023 ambulatory Yosi R BRENDAL Facility:[id number] Start: 03-18-2023 End: 03-19-2023 ambulatory Yosi R NILL Facility:[facility] Start: 03-18-2023 End: 03-19-2023 ambulatory Jerzy R VALDERRAMA Facility:[facility] Start: 03-18-2023 End: 03-18-2023 Patient encounter procedure Jerzy VALDERRAMA [facility] Start: 03-08-2023 ambulatory Yosi NILL Facility:[facility] Start: 02-21-2023 ambulatory Yosi R NILL Facility :[facility] Start: 08-06-2022 End: 08-07-[address] KEV [...] Immunization Date Immunization Notes Care Provider Fa bibi 08-19-2021 SARS-CoV-2 (COVID-19 ) mRNA-1273 vaccine Jerzy VALDERRAMA [facility] Comment on above: Result Comment: 2022: [id number] 07-22-2021 SARS-CoV-2 (COVID-19 ) mRNA-1273 vaccine Jerzy VALDERRAMA [facility] Comment on above: Result Comment: 2022: TPV50 Payers Date Payer Category Payer Unknown [id number] 2.16.84 [id number] 1965 Unknown [id number] 2.16.8 [id number] 1965 Unknown [id number] 2.16.8 [id number] 1965 Unknown [id number] 2.16.8 [id number] 1965 Unknown [id number] 2.16.8 [id number] 1965 Unknown [id number] 2.16.8 [id number] 1965 Unknown [id number] 2.16.8 [id number] 1965 Unknown [id number] 2.16.8 [id number] 1965 Unknown [id number] 2.16.8 [id number] 1965 Unknown [id number] 2.16.8 [id number] 1958 Private Health Insurance [id number] Social History Date Type Detail Facility Start: 03-18-2023 End: 05-27-2023 Tobacco smoking status Ex-smoker (finding) [facility] Tobacco smoking status Smokeless tobacco user within last 30 days [facility] Sex Assigned At [facility] Functional Status Date Assessment Result Facility 07-01-2023 Functional Status N/A [facility] 03-18-2023 Functional Status N/A [facility] Hospital Discharge instructions 07-01-2023 Note [...] treatment? Where to find more information The [place] [employer]: www.cancer.org [place] [employer] Association: www.auanet.org Contact a health care [...] provider. Document Revised: 03/01/2022 Document Reviewed: 03/01/2022 [employer] Patient Education 2022 [employer] Follow Up Care 06/02/2023 15:12:45 With:DEBBIE AMADO, Jerzy Banda, URL Address: [facility] [address] , [place] [phone] When: Unknown [facility] Clinical Note 03-18-2023 Note Date & Type Note Facility 03-18-2023 Note Chief Complaint consultation for screening colonoscopy [facility] Staff 57 year old male presents on [...] Father. Primary chris (more content not included)... [facility] Comment on above: Result Comment: Elec tronically Signed By: BRAYDON AMADO, Yosi Guzmná\Date and Time Signed: 03/18/23 14:30 EDT Hospital [...] Follow these instructions at home: Medicines Take ypoe-vqm-yfiavlm and prescription medicines only as told by [...] important. Where to find more information National [place] of Diabetes and Digestive and Kidney Diseases: [...] depends on the type of prostatitis. Take nexo-hgd-cqlhozl and prescription medicines only as told by [...] provider. Document Revised: 10/10/2020 Document Reviewed: 10/10/2020 [employer] Patient Education 2022 [employer] Follow Up Care 03/08/2023 10:24:41 With:DEBBIE AMADO, Jerzy Banda, URL Address: [address] [place] [address]- When:Within 2 Month(s) Comments:PSA [facility] Evaluation + Plan note Note Date & Type Note Facility Evaluation + Plan note Future Appointments Appointment Date:05/27/2023 10:30:00 AM Scheduled Provider:Jerzy VALDERRAMA MD Location:[facility] Appointment Type:URO Office Visit Diagnostic Tests PendingPSA Total 03/18/23 [facility] Evaluation + Plan note Note Date & Type Note Facility Evaluation + Plan note Future Appointments Appointment Date:07/01/2023 08:45:00 AM Scheduled Provider:Jerzy VALDERARMA MD Location:[facility] Appointment Type:URO Office Visit Diagnostic Tests PendingProstate Histology ([facility]) 06/14/23 [facility] Evaluation + Plan note Note Date & Type Note Facility Evaluation + Plan note Future Appointments Appointment Date:01/02/2024 10:30:00 AM Scheduled Provider:Jerzy VALDERRAMA MD Location:[facility] Appointment Type:URO Office Visit Diagnostic Tests PendingPSA Total 07/01/23 [facility] Hospital course Narrative Note Date & Type Note Facility Hospital course Narrative No data available for this section [facility] Hospital Discharge instructions Note Date & Type Note Facility Hospital Discharge instructions No data available for this section [facility] Progress note Note Date & Type Note Facility Progress note No data available for this section [facility] Summary Purpose Family History No Family History Records Found No data available for this section No Family History Records Found Advance Directives No Advanced Directives Records FoundNo Advanced Directives Records Found Additional Source Comments (unrecognized sect ion and content) No Status Records FoundNo Status Records Found INFORMATION SOURCE (unrecogn ized section and content) DATE CREATED AUTHOR 08/11/2022 [facility] DATE CREATED AUTHOR AUTHOR'S HANSAIZ ATFAUZIA 12/29/2023 [facility] Patient Care team informatio n (unrecognized section and content) Personnel Name: Kev Moser MD Address: Address: [address] [place] [address] Personnel Name: Kev Moser MD Address: Address: [address] [place] [address] Personnel Name: Kev Moser MD Address: Address: [address] [place], [place] [address] FOR RECORDS PERTAINING TO PATIENTS WHO ARE [...] BE BASED ON THE PRIMARY CLINICAL RECORDS. [facility]. provides no warranty or guarantee of the accuracy or completeness of information in this document.
[2024-01-02 10:00] LABS: Prostate Specific Antigen Dx 3.64 ng/mL (<=4.00)
== END 2024-01-02 07:44 | disposition home or self-care (01) ==
LOC: LAB 07:44
PROVIDERS: PCP Family Medicine; Visit Provider Urology
DX: R97.20 Elevated prostate specific antigen [PSA] (principal)
CPT/HCPCS: 36415; 84153

== ENCOUNTER 2024-07-05 09:23 | Outpatient (OUT) | payer OTHER, SELFPAY ==
--- OUTSIDE RECORDS SUMMARY | 2024-07-05 09:38 | XMS_ITS | CCD ---
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 Role Phone OANH, DR ANGULO Admitting Unavailable OANH, DR ANGULO Attending Unavailable OANH, DR ANGULO Primary Care Unavailable OANH, DR ANGULO Consulting Unavailable DIDIER LEACH Consulting Unavailable Kev Moser Primary Care Physician [phone] Jerzy VALDERRAMA Attending Unavailable Kev Moser Referring Unavailable VALDERRAMA, Jerzy Banda Attending Unavailable VALDERRAMA, Jerzy Banda Attending Unavailable VALDERRAMA, Jerzy Badna Attending Unavailable VALDERRAMA, Jerzy Banda Attending Unavailable VALDERRAMA, Jerzy Banda Admitting Unavailable VALDERRAMA, Jerzy Banda Attending Unavailable NILL, Yosi Banda Attending Unavailable NILL, Yosi Banda Attending Unavailable Hoy, Kev Referring Unavailable NILL, Yosi Banda Attending Unavailable VALDERRAMA, Jerzy Banda Attending Unavailable Medications Current Medications Medication Drug Class(es) Dates Sig (Normalized) Sig (Original) carvedilol 6.25 mg oral tablet (4 sources) alpha-Adrenergic Wily, beta-Adrenergic Wily Start: 03-18-2023 carvedilol 6.25 mg Tab Refills(s) 0 Start Date: 03/18/23 Status: Ordered Cinnamon Preparation (1 source) Non-Standardized Food Allergenic Extract Start: 01-02-2024 take 1 mg by mouth twice daily Cinnamon mg, Oral, BID, Refills(s) 0 Start Date: 01/02/24 Status: Ordered ciprofloxacin 500 mg oral tablet (1 source) Quinolone Antimicrobial Start: 05-27-2023 End: 06-17-2023 take 1 tablet by mouth twice daily Cipro 500 mg Tab 500 mg = 1 tab(s), Oral, BID, X 3 week(s), # 42 tab(s), Refills(s) 0, Pharmacy: [facility]/pharmacy #[id number], 183, cm, 05/27/23 11:32:00 EDT, Height/Length [...] week(s), # 56 cap(s), Refills(s) 0, [id number], cm, 03/18/23 11:48:00 EDT, Height/Length Dosing, 120, kg, 03/18/23 11:48:00 EDT, Weight Dosing Start Date: 03/18/23 Stop Date: 04/15/23 Status: Ordered dutasteride 0.5 mg oral capsule (1 source) 5-alpha Reductase Inhibitor Start: 07-07-2023 take 1 capsule by mouth once daily dutasteride 0.5 mg Cap 0.5 mg = 1 cap(s), Oral, Daily, # 30 cap(s), Refills(s) 11, [id number] 183, cm, 07/01/23 8:50:00 EDT, Height/Length Dosing, 120, kg, 07/01/23 8:50:00 EDT, Weight Dosing Start Date: 07/07/23 Status: Ordered irbesartan 300 mg oral tablet (4 sources) Angiotensin 2 Receptor Wily Start: 03-18-2023 irbesartan 300 mg Tab Refills(s) 0 Start Date: 03/18/23 Status: Ordered Multi Vitamin+ (1 source) Start: 01-02-2024 Multi Vitamin+ Refill(s) 0 Start Date: 01/02/24 Status: Ordered tamsulosin hydrochloride 0.4 mg oral capsule (4 sources) alpha-Adrenergic Wily Start: 08-24-2023 take 1 capsule by mouth twice daily tamsulosin 0.4 mg Cap 0.4 mg = 1 cap(s), Oral, BID, # 180 cap(s), Refills(s) 3, Pharmacy: [facility]/pharmacy #[id number], 183, cm, 07/01/23 8:50:00 EDT, Height/Length Dosing, 120, kg, 07/01/23 8:50:00 EDT, Weight Dosing Start Date: 08/24/23 Status: Ordered Start: 03-18-2023 take 1 capsule by mo uth once daily tamsulosin 0.4 mg Cap 0.4 mg = 1 cap(s), Oral, Daily, # 30 cap(s), Refills(s) 11, Pharmacy: [facility]/pharmacy #[id number], 183, cm, 03/18/23 11:48:00 EDT, Height/Length Dosing, 120, kg, 03/18/23 11:48:00 EDT, Weight Dosing Start Date: 03/18/23 Status: Ordered Problems Problem Classification Problem Date Documented Da te Episodic/Chronic Abdominal pain (4 sources) Unspecified abdominal pain; Translations: [UNSPECIFIED ABDOMINAL PAIN] Onset: 08-06-2022 Episodic Calculus of urinary tract (7 sources) History of calculus of kidney; Translations: [Personal history of urinary calculi] Onset: 03-18-2023 Episodic Essential hypertension (4 sources) Hypertensive disorder 03-12-2023 Chronic Hyperplasia of prostate (7 sources) Benign prostatic hypertrophy with outflow obstruction; Translations: [Benign prostatic hyperplasia with lower urinary tract symptoms] Onset: 03-18-2023 Chronic Inflammatory conditions of male genital organs (6 sources) Prostatitis; Translations: [Inflammatory disease of prostate, unspecified] Onset: 03-18-2023 Episodic Joint disorders and dislocations; trauma-related (4 sources) Tear of meniscus of knee 09-30-2017 Episodic Osteoarthritis (4 sources) Osteoarthritis of knee 09-30-2017 Chronic Other diseases of kidney and ureters (1 source) Urinary tract obstruction; Translations: [Other obstructive and reflux uropathy] Onset: 03-18-2023 Episodic Other gastrointestinal disorders (1 source) Constipation, unspecified; Translations: [CONSTIPATION UNSPECIFIED] Onset: 08-11-2022 Episodic Other nutritional; endocrine; and metabolic disorders (4 sources) Body mass index 30+ - obesity 03-18-2023 Chronic Other nutritional; endocrine; and metabolic disorders (4 sources) Morbid obesity 03-18-2023 Chronic Other screening for suspected conditions (not mental disorders or infectious disease) (7 sources) Raised prostate specific antigen; Translations: [Elevated prostate specific antigen [PSA]] Onset: 03-18-2023 Episodic Residual codes; unclassified (5 sources) Family history of malignant neoplasm of urinary bladder; Translations: [Family history of malignant neoplasm of bladder] Onset: 03-18-2023 Episodic Residual codes; unclassified (4 sources) Chews tobacco 03-18-2023 Episodic Unclassified (4 sources) Patient encounter status 03-18-2023 Results Test Name Value Interpretation Reference Range Facil ity Lab Reportson 01-04-2024 Lab Reports [id number] .00TIFF Normal [facility] Ambulatory Visit Summaryon 0 01-02-2024 Ambulatory Visit Summary WAQAS DO :1965 Visit Date:01/02/2024 Ambulatory Visit Instructions Your Diagnosis Elevated PSA BPH with urinary obstruction History of nephrolithiasis Your Care Team Attending Physician - Jerzy VALDERRAMA MD Primary Care Physician - Kev Moser MD This Is Your Medications List dutasteride (dutasteride 0.5 mg Cap) tamsulosin (tamsulosin 0.4 mg Cap) Contact prescribing physician if questions or concerns carvedilol (carvedilol 6.25 mg Tab) cinnamon (Cinnamon) irbesartan (irbesartan 300 mg Tab) multivitamin (Multi Vitamin+) Procedures Performed Transrectal biopsy of prostate using ultrasound (US) guidance (06/14/2023), Arthroscopy of knee (10/21/2017), excision of bone growth left lower leg, Myringotomy and insertion of short-term grommet. Discharge Vitals Heart Rate (Peripheral) 74 Respiratory Rate 16 Blood Pressure 135/78 Height 183 cm Height 72 in Weight 117 kg Weight 257.4 lb BMI 34.94 What to do next You Need to Schedule the Following Appointments Follow Up with DEBBIE AMADO, Jerzy Banda, URL When: Comments: 6 mos w/ PSA, RAYSHAWN Where: [facility] [address] , [place] [address] [phone] Medications What How Much When Instructions Unchanged dutasteride (dutasteride 0.5 mg Cap) 1 Capsules By Mouth Every day Unchanged tamsulosin (tamsulosin 0.4 mg Cap) 1 Capsules By Mouth 2 times a day Unchanged carvedilol (carvedilol 6.25 mg Tab) Contact prescribing physician if questions or concerns Unchanged cinnamon (Cinnamon) By Mouth 2 times a day Contact prescribing physician if questions or concerns Unchanged irbesartan (irbesartan 300 mg Tab) Contact prescribing physician if questions or concerns Unchanged multivitamin (Multi Vitamin+) Contact prescribing physician if questions or concerns Allergies No Known Allergies Problems Ongoing - Any problem that you are currently receiving treatment for. BMI 35.0-35.9,adult BPH with urinary obstruction Chews tobacco Elevated PSA Family history of bladder cancer History of nephrolithiasis HTN (hypertension) Morbid obesity Prostatitis Screening for malignant neoplasm of colon Patient Survey You may receive a survey via text or e-mail asking about your office visit. Please share your experience with us by completing your survey. We appreciate your feedback and thank you for choosing us for your care. Education Materials Prostate Cancer Screening Prostate cancer [...] (like testosterone) or other medicines that raise (more content not included)... Normal [facility] Lab Reportson 01-02-2024 Lab Reports [id number] .[id number] [facility] Patient Educationon 01-02-20 Patient Education Oncology Prostate Cancer Screening Prostate [...] Where to find more information ? [place] Cancer Society: www.cancer.org ? [place] Urological Association: www.auanet.org Contact a health care [...] adds flu (more content not included)... Normal [facility] Urology Office/Clinic Noteon 01-02-2024 Urology Office/Clinic Note Chief Complaint 6m PSA HPI Staff 6 month f/u with PSA Dx: elevated PSA, BPH with urinary obstruction, prostatitis and hx of nephrolithiasis. Tamsulosin 0.4mg BID and Dutasteride 0.5mg qd. PSA 10/07/23- 3.40 01/02/24- 3.64 Was advised to increase Tamsulosin to BID for 1 week at time of last encounter, pt has continued to take BID. Has helped with getting up at night. Currently getting up 1-2x/night. Denies all urinary complaints at this time. No concerns at this time. History of Present Illness Tests reviewed: reviewed UA, PSAs I have reviewed the previous health record information and history for this patient from Dr. Valderrama. I have reviewed and verified the staff HPI to be accurate for this encounter. Review of Systems PHQ Score Initial Depression Screen Score: 0 SCORE ROS - Provider Constitutional: denies weight loss, [...] HPI. Physical Exam Vitals & Measurements HR: 74(Peripheral) RR: 16 BP: 135/78 HT: 72 in HT: 183 cm WT: 117 kg WT: 257.4 lb BMI: 34.94 General Appearance: alert, no distress, well nourished, well developed male. Genitourinary: normal scrotum, normal testes, normal urethra, normal epididymis, normal vas deferens/spermatic cord. Flank Pain: none. Bladder: nonpalpable. Assessment/Plan Pt here with his today. 1. Elevated PSA (R97.20: Elevated prostate specific antigen [PSA]) PSA: 09/28/16 - 2.20 02/25/23 - 6.97 05/05/23 - 10.9 & 19.3% (after possible prostatitis tx) 10/07/23 - 3.40 (6.80 Dutasteride) (screening ordered by PCP) 01/02/24 - 3.64 (7.28 Dutasteride) No family hx of prostate cancer. S/p TRUS/bx 06/14/23 - Mild acute chronic inflammation in 3 cores. Prostate volume 60.5 cc. Most recent PSA levels have decreased from prior. Discussed PSA level will always be abnormal due to size and chronic inflammation. Will continue to monitor closely. -PSA, RAYSHAWN in 6 months -Monitor for prostatitis sxs -Consider prostate MRI if PSA rises linearly 2. BPH with urinary obstruction (N40.1: Benign prostatic hyperplasia with lower urinary tract symptoms) Prostate US 03/16/23 - enlarged prostate measuring 6.1 x 5.6 x 4.6 cm. 82.7 cc. Taking Tamsulosin 0.4mg bid, increased from qd at prior OV. Also started on Dutasteride 0.5mg qd at prior OV. Has been taking this and felt this improved nocturia. Stream is stronger. Denies any infections since last encounter. UA today shows small. No current UTI sxs. -Cont Tamsulosin bid and Dutasteride qd. Pt to call for refills. 3. History of nephrolithiasis (Z87.442: Personal history of urinary calculi) Asymptomatic. No recent imaging. [1] Follow-up With When Contact Information Jerzy VALDERRAMA MD, URL [facility] [address], [place] [address] [phone] Additional Instructions: 6 mos w/ PSA, RAYSHAWN Patient Education Prostate Cancer Screening I, Ramona Whitlock, personally scribed for Dr. Valderrama on 01/02/2024 11:35:58. . Documentation recorded by the scribe, Ramona Whitlock, accurately reflects the services(s) I performed and decisions made by me. Authenticated by Dr. Valderrama on 01/02/2024 11:38:09. Problem List/Past Medical History Ongoing BMI 35.0-35.9,adult BPH with urinary obstruction Chews tobacco Elevated PSA Family history of bladder cancer History of nephrolithiasis HTN (hypertension) Morbid obesity Prostatitis Screening for malignant neoplasm of colon Historical No qualifying data Procedure/Surgical History Transrectal biopsy of prostate using ultrasound (US) guidance (06/14/2023), Arthroscopy of knee (10/21/2017), excision of bone growth left lower leg, Myringotomy and insertion of short-term grommet. Medications carvedilol 6.25 mg Tab Cinnamon, Oral, BID dutasteride 0.5 mg Cap, 0.5 mg= 1 cap(s), Oral, Daily, 11 refills irbesartan 300 mg Tab Multi Vitamin+ tamsulosin 0.4 mg Cap, 0.4 mg= 1 cap(s), Oral, BID, 3 refills Allergies No Known Allergies Social History Alcohol - Denies Alcohol Use, 09/30/2017 Substance Abuse - Denies Substance Abuse, 09/30/2017 Tobacco - Medium Risk, 10/21/2017 Former smoker, quit more than 30 days ago Tobacco Use:. Smokeless tobacco user within last 30 days Smokeless Tobacco Use:. Cigarettes, Oral, 1 per day. Household tobacco concerns: No. Yes, 01/02/2024 Family History COPD: Father and Brother. Hypertension: Mother. Primary malignant neoplasm of bladder: Father. Primary malignant neoplasm of colon: Father. Stroke: Mother. Immunizations Vaccine Da (more content not included)... Normal [facility] Comment on above: Result Comment: Elec tronically Signed By: Jerzy VALDERRAMA MD\.br\Date and Time Signed: 01/02/24 11:38 EDT\.br\Electronically Co-Signed By: Ramona Whitlock\.br\Date and Time Co-Signed: 01/02/24 11:36 EDT Ambulatory Visit Summaryon 1 Ambulatory Visit Summary [...] Jerzy VALDERRAMA MD Where: [facility] Patient Educationon 07-01-20 Patient Education Oncology Prostate Cancer Screening Prostate [...] Where to find more information ? [place] Cancer Society: www.cancer.org ? [place] Urological Association: www.auanet.org Contact a health care [...] adds flu (more content not included)... Normal [facility] Urology Office/Clinic Noteon 07-01-2023 Urology Office/Clinic Note [...] sxs improve. -Begin Dutasteride. Rx sent to [facility]. 3. Prostatitis (N41.9: Inflammatory disease of prostate, unspecified) Pt was given Cipro 500mg BID x3w. Completed abx course with sx improvement. Denies any pain or pressure. 4. History of nephrolithiasis (Z87.442: Personal history of urinary calculi) Asymptomatic. No recent imaging. Follow-up With When Contact Information DEBBIE AMADO, Jerzy Banda, URL [facility] [address] [facility] [place] [address] [phone] Additional Instructions: 6 mos w/ PSA Patient Education Prostate Cancer Screening I, Ramona Whitlock, personally scribed for Dr. Valderrama on 07/01/2023 [...] colon Historical (more content not included)... Normal [facility] Comment on above: Result Comment: Elec tronically Signed By: Jerzy VALDERRAMA MD\.br\Date and Time Signed: 07/01/23 09:34 EDT\.br\Electronically Co-Signed By: Ramona Whitlock\.br\Date and Time Co-Signed: 07/01/23 09:32 EDT Prostate Histology ([facility]) on 06-23-2023 Prostate Histology Diagnosis Info Invalid Interpretation Code [facility] Comment on above: Result Comment: A:Pr ostate,Left Lateral Base:Needle Biopsy Interpretation - - Benign prostatic tissue. MicroScopic Description - B:Prostate,Left Lateral Mid:Needle Biopsy Interpretation - - Benign prostatic tissue. MicroScopic Description - C:Prostate,Left Lateral [place]:Needle Biopsy Interpretation - - Benign prostatic tissue. MicroScopic Description - D:Prostate,Left Base:Needle Biopsy Interpretation - - Benign prostatic tissue. MicroScopic Description - E:Prostate,Left Mid:Needle Biopsy Interpretation - - Benign prostatic tissue. MicroScopic Description - F:Prostate,Left [place]:Needle Biopsy Interpretation - - Benign prostatic tissue. MicroScopic Description - G:Prostate,Right Base:Needle Biopsy Interpretation - - Benign prostatic tissue with patchy mild acute chronic inflammation. MicroScopic Description - H:Prostate,Right Mid:Needle Biopsy Interpretation - - Benign prostatic tissue. MicroScopic Description - I:Prostate,Right [place]:Needle Biopsy Interpretation - - Benign prostatic tissue with patchy mild acute chronic inflammation. MicroScopic Description - J:Prostate,Right Lateral Base:Needle Biopsy Interpretation - - Benign prostatic tissue. MicroScopic Description - K:Prostate,Right Lateral Mid:Needle Biopsy Interpretation - - Benign prostatic tissue. MicroScopic Description - L:Prostate,Right Lateral [place]:Needle Biopsy Interpretation - - Benign prostatic tissue [...] cores 1 units cm Site ID:H color raiza-white fixative Formalin cores 1 units cm Site ID:I color ariza-white fixative Formalin cores 1 units cm Site ID:J color ariza-white fixative Formalin cores 1 units cm Site ID:K color ariza-white fixative Formalin cores 1 units cm Site ID:L color ariza-white fixative Formalin cores 1 units cm CPT: 23212 x 12 Electronically signed by : on: 06/23/2023 10:59:54 Performed By: #### 1 [id number] ####[facility] [address] [place] [address] Consent for Procedure/Surger yon 06-15-2023 Consent for Procedure/Surgery [id number] .00CD:127 Normal [facility] Ambulatory Visit Summaryon 0 06-14-2023 Ambulatory Visit [...] Jerzy Banda Where: [facility] Invalid Interpretation Code BPH with urinary obstruction [facility] Patient Educationon 06-14-20 Patient Education Oncology Transrectal [...] near your rectum, especially while sitting. ? Brewer-colored urine due to small amounts of blood in your urine. ? A burning feeling while urinating. ? Blood in your stool (feces) or bleeding from your rectum. ? Blood in your semen. Follow these instructions at home: Medicines ? Take pyfg-spd-zzeksee and prescription medicines only as told by [...] provider. Document Revised: 03/01/2022 Document Reviewed: 03/01/2022 [employer] Patient Education ? 2022 [employer] Normal [facility] Prostate Histology ([facility]) on 06-14-2023 PH Method of Extraction Needle Biopsy Normal [facility] Comment on above: Performed By: #### 1 [id number] ####[facility] [address] [place] [address] PH Number of Jars 2 Invalid Interpretation Code [facility] Comment on above: Performed By: #### 1 [id number] ####[facility] [address] [place] [address] PH Specimen 1 R Base Prostate Normal [facility] Comment on above: Performed By: #### 1 [id number] ####[facility] [address] [place] [address] PH Specimen 10 L Lat Mid Prost Normal [facility] Comment on above: Performed By: #### 1 [id number] ####[facility] [address] [place] [address] PH Specimen 11 L Apx Prostate Normal [facility] Comment on above: Performed By: #### 1 [id number] ####[facility] [address] [place] [address] PH Specimen 12 L Lat Apx Prost Normal [facility] Comment on above: Performed By: #### 1 [id number] ####[facility] [address] [place] [address] PH Specimen 2 R Lat Bse Prost Normal [facility] Comment on above: Performed By: #### 1 [id number] ####[facility] [address] [place] [address] PH Specimen 3 R Mid Prostate Normal [facility] Comment on above: Performed By: #### 1 [id number] ####[facility] [address] [place] [address] PH Specimen 4 R Lat Mid Prost Normal [facility] Comment on above: Performed By: #### 1 [id number] ####[facility] [address] [place] [address] PH Specimen 5 R Apx Prostate Normal [facility] Comment on above: Performed By: #### 1 [id number] ####[facility] [address] [place] [address] PH Specimen 6 R Lat Apx Prost Normal [facility] Comment on above: Performed By: #### 1 [id number] ####[facility] [address] [place] [address] PH Specimen 7 L Base Prostate Normal [facility] Comment on above: Performed By: #### 1 [id number] ####[facility] [address] [place] [address] PH Specimen 8 L Lat Bse Prost Normal [facility] Comment on above: Performed By: #### 1 [id number] ####[facility] [address] [place] [address] PH Specimen 9 L Mid Prostate Normal [facility] Comment on above: Performed By: #### 1 [id number] ####[facility] [address] [place] [address] PH Type of Service Technical Only Normal [facility] Comment on above: Performed By: #### 1 [id number] ####[facility] [address] [place] [address] Urology Office/Clinic Noteon 06-14-2023 Urology Office/Clinic Note [...] URL [facility] [address], [place] [address] [phone] Additional Instructions: f/u sched on 07/01/23 Patient Education Transrectal Ultrasound-Guided Prostate Biopsy, Care After Ramona Biggs, personally scribed for Dr. Valderrama on 06/14/2023 [...] data Procedur (more content not included)... Normal [facility] Comment on above: Result Comment: Elec tronically Signed By: Jerzy VALDERRAMA MD\.br\Date and Time Signed: 06/14/23 16:41 EDT\.br\Electronically Co-Signed By: Ramona Whitlock\.br\Date and Time Co-Signed: 06/14/23 16:40 EDT Ambulatory Visit Summaryon 0 05-27-2023 Ambulatory Visit Summary WAQAS DO Flip :1965 Visit Date:05/27/2023 Ambulatory Visit Instructions Your Diagnosis BPH with urinary obstruction Elevated PSA Prostatitis History of nephrolithiasis Tests Performed Urnls Dip Stick Auto w/o Microscopy POC [id number] Your Care Team Attending Physician - Jerzy [...] Schedule the Following Appointments Follow Up with Jerzy VALDERRAMA MD, DARON When: Where: [address] [place] [phone]- Medications What How Much When Instructions New ciprofloxacin (Cipro 500 mg Tab) 1 Tablets By Mouth 2 times a day Duration: 3 Weeks Pickup at [facility]/pharmacy #[id number] Unchanged tamsulosin (tamsulosin 0.4 mg Cap) 1 Capsules By Mouth Every day Unchanged carvedilol (carvedilol 6.25 mg Tab) Contact prescribing physician if questions or concerns Unchanged irbesartan (irbesartan 300 mg Tab) Contact prescribing physician if questions or concerns Pharmacy Information [facility]/pharmacy #[id number]: [address], [place] [id number] [phone] Test Results Urnls Dip Stick Auto w/o Microscopy POC [id number] (05/27/2023) Bilirubin Urine Dipstick - Negative Blood Urine Dipstick - Trace-intact Glucose Urine Dipstick - Negative Ketones Urine Dipstick - Negative Leukocytes Urine Dipstick - Negative Nitrite Urine Dipstick - Negative Protein Urine Dipstick - Negative Specific [place] Urine Dipstick - 1.020 Urine Appearance Urine [...] infection (pr (more content not included)... Normal [facility] Patient Educationon 05-27-20 Patient Education Oncology Prostate [...] Where to find more information ? [place] Cancer Society: www.cancer.org ? [place] Urological Association: www.auanet.org Contact a health care [...] flu (more content not included)... Normal [facility] Urology Office/Clinic Noteon 05-27-2023 Urology Office/Clinic Note [...] Contact Information DEBBIE AMADO, Jerzy Banda, URL [address] [id number]- Additional Instructions: Schedule TRUS/bx Patient Education Prostate Cancer Screening I, Kamilah Wallis, personally scribed for Dr. Valderrama on 05/27/2023 12:22:03. . Documentation recorded by the scribe, Kamilah Wallis, accurately reflects the services(s) I performed and [...] Use:. Cigarettes, Ora (more content not included)... Normal [facility] Comment on above: Result Comment: Elec tronically Signed By: Jerzy VALDERRAMA MD\.br\Date and Time Signed: 05/27/23 12:25 EDT\.br\Electronically Co-Signed By: Kamilah Wallis\.br\Date and Time Co-Signed: 05/27/23 12:22 EDT Lab Reportson 05-09-2023 Lab Reports [id number]#1 .00CD:127 [facility] Outside Colonoscopyon 2022 Outside Colonoscopy [id number]#1 .00CD:127 [facility] Reminderson 04-14-2023 Reminders - From: Shannan Garcia LPN To: N - Clinical; Sent: 04/14/2023 14:17:56 EDT Show up: 03/14/2033 07:00:00 EDT Subject: colonoscopy recall Due Date/Time: 04/13/2033 07:00:00 EDT Reminder/Recall Patient due for screening colonoscopy 04/13/2033. [facility] Pre-Certification Formon Pre-Certification Form [id number]# 1.00CD:127 [facility] Facesheeton 03-23-2023 Facesheet [id number]#1 .00CD:127 [facility] Consent for Procedure/Surger yon 03-21-2023 Consent for Procedure/Surgery [id number]#1 .00CD:127 [facility] Ambulatory Visit Summaryon 0 03-18-2023 Ambulatory [...] Jerzy VALDERRAMA MD Where: [facility] Patient Educationon 03-18-20 23 Patient Education [...] these instructions at home: Medicines ? Take usgc-nbv-xyltaej and prescription medicines only as told by [...] Where to find more information ? National [employer] of Diabetes and Digestive and Kidney Diseases: (more content not included)... [facility] Physician Referralon 023 Physician Referral [id number]# 1.00CD:127 [facility] Screenson 03-18-2023 Screens [id number]# 1.00CD:127 [facility] Urology Office/Clinic Noteon 03-18-2023 Urology Office/Clinic Note [...] AMADO, Jerzy Banda, DARON In [address] [place] [address] Additional Instructions: PSA Patient Education Prostatitis IDivya, personally scribed for Dr. Valderrama on 03/18/2023 [...] Social History (more content not included)... [facility] Comment on above: Result Comment: Elec tronically Signed By: Jerzy VALDERRAMA MD\.br\Date and Time Signed: 03/18/23 12:47 EDT\.br\Electronically Co-Signed By: Divya Landry MA\.br\Date and Time Co-Signed: 03/18/23 12:45 EDT Consultation Noteon 02-28-20 Consultation Note [id number] .00CD:127 [facility] Physician Referralon 023 Physician Referral [id number] .00CD:127 [facility] XR ABD FLAT UP_PA Nando 08-08 XR [...] by: DIDIER LEACH Date: 2022-08-08 20:40 Normal [facility] Vital Signs Date Time Vital Sign Value Performing Clinician Macey maurer 01-02-2024 10:51-0400 Blood Pressure Location Jerzy VALDERRAMA [facility] 01-02-2024 10:51-0400 Diastolic blood pressure 78 mm[Hg] Jerzy VALDERRAMA [facility] 01-02-2024 10:51-0400 Heart rate 74 /min Jerzy VALDERRAMA [facility] 01-02-2024 10:51-0400 Respiratory rate 16 /min Jerzy VALDERRAMA [facility] 01-02-2024 10:51-0400 Systolic blood pressure 135 mm[Hg] Jerzy VALDERRAMA [facility] 07-01-2023 08:44-0400 Blood Pressure Location Jerzy VALDERRAMA [facility] 07-01-2023 08:44-0400 Diastolic blood pressure 88 mm[Hg] Jerzy VALDERRAMA [facility] 07-01-2023 08:44-0400 Heart rate 100 /min Jerzy VALDERRAMA [facility] 07-01-2023 08:44-0400 Respiratory rate 16 /min Jerzy VALDERRAMA [facility] 07-01-2023 08:44-0400 Systolic blood pressure 149 mm[Hg] Jerzy VALDERRAMA [facility] 03-18-2023 11:44-0400 Blood Pressure Location Jerzy VALDERRAMA [facility] 03-18-2023 11:44-0400 Diastolic blood pressure 88 mm[Hg] Jerzy VALDERRAMA [facility] 03-18-2023 11:44-0400 Heart rate 100 /min Jerzy VALDERRAMA [facility] 03-18-2023 11:44-0400 Respiratory rate 16 /min Jerzytorres VALDERRAMA [facility] 03-18-2023 11:44-0400 Systolic blood pressure 138 mm[Hg] Jerzy DEBBIE [facility] Encounters Encounter Date Encounter Type Care Provider Facility Start: 07-06-2024 ambulatory Jerzy VALDERRAMA Facili ty:[facility] Start: 01-02-2024 End: 01-03-2024 ambulatory Jerzy VALDERRAMA Facility:[facility] Start: 01-02-2024 End: 01-02-2024 Patient encounter procedure Jerzy VALDERRAMA [facility] Start: 07-01-2023 End: 07-02-2023 ambulatory Jerzy VALDERRAMA Facility:[facility] Start: 07-01-2023 End: 07-01-2023 Patient encounter procedure Jerzy VALDERRAMA [facility] Start: 06-14-2023 End: 06-15-2023 ambulatory Jerzy VALDERRAMA Facility:[facility] Start: 06-14-2023 End: 06-15-2023 ambulatory Jerzy VALDERRAMA Facility:[facility] Start: 06-14-2023 End: 06-14-2023 Lab Drop off Jerzy VALDERRAMA [facility] Start: 05-27-2023 End: 05-28-2023 ambulatory Jerzy VALDERRAMA Facility:[facility] Start: 04-13-2023 End: 04-14-2023 ambulatory Yosi BRYSON Facility:CD:[id number] Start: 03-18-2023 End: 03-19-2023 ambulatory oYsi BRYSON Facility: [facility] Start: 03-18-2023 End: 03-19-2023 ambulatory Jerzy VALDERRAMA Facility:[facility] Start: 03-18-2023 End: 03-18-2023 Patient encounter procedure Jerzy VALDERRAMA [facility] Start: 03-08-2023 ambulatory Jerzy VALDERRAMA Facility :[facility] Start: 02-21-2023 ambulatory Yosi Veronika BRAYDON Facility : [facility] Start: 08-06-2022 End: 08-07-[address] KEV MOSER Facility: Procedures Date Procedure Procedure Detail Performing Clinician [...] ) mRNA-1273 vaccine Jerzy VALDERRAMA [facility] Comment on above: Result Comment: 2022: [id number] 07-22-2021 SARS-CoV-2 (COVID-19 ) mRNA-1273 vaccine Jerzy VALDERRAMA [facility] [place] Comment on above: Result Comment: 2022: [id number] Payers Date Payer Category Payer Unknown [id number] 2.16.84 [id number] 1965 Unknown [id number] 2.16.8 [id number] 1966 Unknown [id number] 2.16.8 [id number] 1966 Unknown [id number] 2.16.8 [id number] 1966 Unknown [id number] 2.16.8 [id number] 1966 Unknown [id number] 2.16.8 [id number] 1966 Unknown [id number] 2.16.8 [id number] 1966 Unknown [id number] 2.16.8 [id number] 1966 Unknown [id number] 2.16.8 [id number] 1966 Unknown [id number] 2.16.8 [id number] 1966 Unknown [id number] 2.16.8 [id number] 1959 Private Health Insurance [id number] Social History Date Type Detail Facility Start: 03-18-2023 End: 01-02-2024 Tobacco smoking status Ex-smoker (finding) [facility] Tobacco smoking status Smokeless tobacco user within last 30 days [facility] [place] Sex Assigned At Male [facility] Functional Status Date Assessment Result Facility 01-02-2024 Functional Status N/A [facility] 07-01-2023 Functional Status N/A [facility] 03-18-2023 Functional Status N/A [facility] Clinical Notes 03-18-2023 to 01-02-2024 Note Date & Type Note Facility 01-02-2024 Hospital Discharge instructions Patient Education 01/02/2024 11:31:19 Prostate Cancer Screening Prostate Cancer Screening Prostate [...] treatment? Where to find more information [employer] [place] [employer]: www.cancer.org [employer] [place] [employer]: www.auanet.org Contact a health care [...] provider. Document Revised: 03/01/2022 Document Reviewed: 03/01/2022 [employer] Patient Education 2022 [email or web address]. Follow Up Care 07/01/2023 09:34:33 With:DEBBIE AMADO, Jerzy Banda, URL Address: [facility] [address] , [place] [address]- [phone] When: Unknown Comments:6 mos w/ PSA, RAYSHAWN [facility] 07-01-2023 Hospital Discharge instructions Patient Education 07/01/2023 [...] treatment? Where to find more information [employer] [place] [employer]: www.cancer.org [employer] [place] [employer]: www.auanet.org Contact a health care [...] provider. Document Revised: 03/01/2022 Document Reviewed: 03/01/2022 [employer] Patient Education 2022 [email or web address]. Follow Up Care 06/02/2023 15:12:45 With:DEBBIE AMADO, Jerzy Banda, URL Address: [facility] [address] [place] [address]- [phone] When: Unknown [facility] Note Chief Complaint consultation for screening [...] Father. Primary chris (more content not included)... [facility] Comment on above: Result Comment: Elec tronically Signed By: Yosi BRYSON MD\Date and Time Signed: 03/18/23 14:30 EDT 03-18-2023 Hospital Discharge instructions Patient Education 03/18/2023 12:44:01 Prostatitis Prostatitis [...] Follow these instructions at home: Medicines Take srgn-lae-qxxixcz and prescription medicines only as told by [...] important. Where to find more information National [employer] of Diabetes and Digestive and Kidney Diseases: [...] depends on the type of prostatitis. Take vazf-wyv-dxzcxdf and prescription medicines only as told by [...] provider. Document Revised: 10/10/2020 Document Reviewed: 10/10/2020 [employer] Patient Education 2022 [email or web address]. Follow Up Care 03/08/2023 10:24:41 With:Jerzy VALDERRAMA MD, URL Address: [address] [place], [place] [id number] When:Within 2 Month(s) Comments:PSA [facility] Evaluation + Plan note Future Appointments Appointment Date:05/27/2023 10:30:00 AM Scheduled Provider:Jerzy VALDERRAMA MD Location:[facility] Appointment Type:URO Office Visit Diagnostic Tests PendingPSA Total 03/18/23 [facility] Evaluation + Plan note Future Appointments Appointment Date:07/01/2023 08:45:00 AM Scheduled Provider:Jerzy VALDERRAMA MD Location:[facility] Appointment Type:URO Office Visit Diagnostic Tests PendingProstate Histology ([facility]) 9/26/23 [facility] Evaluation + Plan note Future Appointments Appointment Date:01/02/2024 10:30:00 AM Scheduled Provider:Jerzy VALDERRAMA MD Location:[facility] Appointment Type:URO Office Visit Diagnostic Tests PendingPSA Total 07/01/23 [facility] Evaluation + Plan note Future Appointments Appointment Date:07/06/2024 08:30:00 AM Scheduled Provider:Jerzy VALDERRAMA MD Location:[facility] Appointment Type:URO Office Visit Diagnostic Tests PendingPSA Total 01/02/24 [facility] Hospital course Narrative No data available for this section [facility] Hospital Discharge instructions No data available for this section [facility] Progress note No data available for this section [facility] Summary Purpose Family History No Family History Records Found No data available for this section No data available for this section No Family History Records Found Advance Directives No Advanced Directives Records FoundNo Advanced Directives Records Found Additional Source Comments (unrecognized sect ion and content) No Status Records FoundNo Status Records Found INFORMATION SOURCE (unrecogn ized section and content) DATE CREATED AUTHOR 08/11/2022 [facility] DATE CREATED AUTHOR AUTHOR'S ORGANIZ ATION 01/06/2024 [facility] Patient Care team informatio n (unrecognized section and content) Personnel Name: Kev Moser MD Address: Address: [address] [place] [address] Personnel Name: Kev Moser MD Address: Address: [address] [place] [address] Personnel Name: Kev Moser MD Address: Address: [address] [place] [address] Personnel Name: Kev Moser MD Address: Address: [address] [place] [address] FOR RECORDS PERTAINING TO PATIENTS WHO ARE [...] BE BASED ON THE PRIMARY CLINICAL RECORDS. [facility] [employer] [facility] provides no warranty or guarantee of the accuracy or completeness of information in this document.
== END 2024-07-05 09:24 | disposition home or self-care (01) ==
LOC: LAB 09:24
PROVIDERS: PCP Family Medicine; Visit Provider Urology
DX: R97.20 Elevated prostate specific antigen [PSA] (principal)
CPT/HCPCS: 36415; 84153

== ENCOUNTER 2025-02-19 09:13 | Outpatient (OUT) | payer OTHER, SELFPAY ==
--- OUTSIDE RECORDS SUMMARY | 2025-02-19 09:33 | XMS_ITS | CCD ---
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 Name Role Phone DR KEV MOSER Admitting Unavailable DR KEV MOSER Attending Unavailable DR KEV MOSER Primary Care Unavailable DR KEV MOSER Consulting Unavailable DIDIER LEACH Consulting Unavailable Kev Moser Primary Care Physician [phone] Jerzy LEWIS Attending Unavailable Jerzy LEWIS Attending Unavailable Jerzy LEWIS Attending Unavailable Medications Current Medications Medication Drug Class(es) Dates Sig (Normalized) Sig (Original) carvedilol 6.25 mg oral tablet (5 sources) alpha-Adrenergic Wily, beta-Adrenergic Wily Start: 03-18-2023 carvedilol 6.25 mg Tab Refills(s) 0 Start Date: 03/18/23 Status: Ordered Cinnamon Preparation (2 sources) Non-Standardized Food Allergenic Extract Start: 01-02-2024 take [...] week(s), # 42 tab(s), Refills(s) 0, Pharmacy: [facility] #[id number], 183, cm, 05/27/23 11:32:00 EDT, Height/Length [...] week(s), # 56 cap(s), Refills(s) 0, [id number], cm, 03/18/23 11:48:00 EDT, Height/Length Dosing, 120, kg, 03/18/23 11:48:00 EDT, Weight Dosing Start Date: 03/18/23 Stop Date: 04/15/23 Status: Ordered dutasteride 0.5 mg oral capsule (2 sources) 5-alpha Reductase Inhibitor Start: 07-07-2023 take 1 capsule by mouth once daily dutasteride 0.5 mg Cap 0.5 mg = 1 cap(s), Oral, Daily, # 30 cap(s), Refills(s) 11, [id number] 183, cm, 07/01/23 8:50:00 EDT, Height/Length Dosing, 120, kg, 07/01/23 8:50:00 EDT, Weight Dosing Start Date: 07/07/23 Status: Ordered irbesartan 300 mg oral tablet (5 sources) Angiotensin 2 Receptor Wily Start: 03-18-2023 irbesartan 300 mg Tab Refills(s) 0 Start Date: 03/18/23 Status: Ordered Multi Vitamin+ (2 sources) Start: 01-02-2024 Multi Vitamin+ Refill(s) 0 Start Date: 01/02/24 Status: Ordered tamsulosin hydrochloride 0.4 mg oral capsule (5 sources) alpha-Adrenergic Wily Start: 08-24-2023 take 1 capsule by mouth twice daily tamsulosin 0.4 mg Cap 0.4 mg = 1 cap(s), Oral, BID, # 180 cap(s), Refills(s) 3, Pharmacy: [facility] #[id number], 183, cm, 07/01/23 8:50:00 EDT, Height/Length Dosing, 120, kg, 07/01/23 8:50:00 EDT, Weight Dosing Start Date: 08/24/23 Status: Ordered Start: 03-18-2023 take 1 capsule by [facility] once daily tamsulosin 0.4 mg Cap 0.4 mg = 1 cap(s), Oral, Daily, # 30 cap(s), Refills(s) 11, Pharmacy: [facility] #[id number], 183, cm, 03/18/23 11:48:00 EDT, Height/Length Dosing, 120, kg, 03/18/23 11:48:00 EDT, Weight Dosing Start Date: 03/18/23 Status: Ordered Problems Problem Classification Problem Date Documented Da te Episodic/Chronic Abdominal pain (4 sources) Unspecified abdominal pain; Translations: [UNSPECIFIED ABDOMINAL PAIN] Onset: 08-06-2022 Episodic Calculus of urinary tract (9 sources) History of calculus of kidney; Translations: [Personal history of urinary calculi] Onset: 03-18-2023 Episodic Essential hypertension (5 sources) Hypertensive disorder 03-12-2023 Chronic Hyperplasia of prostate (9 sources) Benign prostatic hypertrophy with outflow obstruction; Translations: [Benign prostatic hyperplasia with lower urinary tract symptoms] Onset: 03-18-2023 Chronic Inflammatory conditions of male genital organs (2 sources) Chronic prostatitis; Translations: [Chronic prostatitis] Onset: 07-06-2024 Chronic Inflammatory conditions of male genital organs (7 sources) Prostatitis; Translations: [Inflammatory disease of prostate, unspecified] Onset: 03-18-2023 Episodic Joint disorders and dislocations; trauma-related (5 sources) Tear of meniscus of knee 09-30-2017 Episodic Osteoarthritis (5 sources) Osteoarthritis of knee 09-30-2017 Chronic Other diseases of kidney and ureters (1 source) Urinary tract obstruction; Translations: [Other obstructive and reflux uropathy] Onset: 03-18-2023 Episodic Other gastrointestinal disorders (1 source) Constipation, unspecified; Translations: [CONSTIPATION UNSPECIFIED] Onset: 08-11-2022 Episodic Other nutritional; endocrine; and metabolic disorders (5 sources) Body mass index 30+ - obesity 03-18-2023 Chronic Other nutritional; endocrine; and metabolic disorders (5 sources) Morbid obesity 03-18-2023 Chronic Other screening for suspected conditions (not mental disorders or infectious disease) (9 sources) Raised prostate specific antigen; Translations: [Elevated prostate specific antigen [PSA]] Onset: 03-18-2023 Episodic Residual codes; unclassified (6 sources) Family history of malignant neoplasm of urinary bladder; Translations: [Family history of malignant neoplasm of bladder] Onset: 03-18-2023 Episodic Residual codes; unclassified (5 sources) Chews tobacco 03-18-2023 Episodic Unclassified (5 sources) Patient encounter status 03-18-2023 Results Test Name Value Interpretation Reference Range Facil ity Ambulatory Visit Summaryon 1 Ambulatory Visit Summary Ambulatory Visit Summary WAQAS DO :1965 Visit Date:07/06/2024 Ambulatory Visit Instructions Your Diagnosis Elevated PSA BPH with urinary obstruction Chronic prostatitis History of nephrolithiasis Your Care Team Attending Physician - Jerzy LEWIS MD Primary Care Physician - Kev Moser [...] short-term grommet. Discharge Vitals Heart Rate (Peripheral) 78 Blood Pressure 188/114 Height 72 in Height 183 cm Weight 257.4 lb Weight 117 kg BMI 34.94 What to do next Scheduled Follow-Up Appointments Tuesday 8:30 AM EDT With: Jerzy LEWIS MD Where: [facility] [address] [place] [address]- You Need to Schedule the Following Appointments Follow Up with Jerzy LEWIS MD, URL When: Where: [facility] [place] [address]- Medications What How Much When Instructions Unchanged [...] 35.0-35.9,adult BPH with urinary obstruction Chews tobacco Chronic prostatitis Elevated PSA Family history of bladder cancer [...] caused by cancer (benign prostatic hyperplasia, or BP (more content not included)... Normal [facility] Urology Office/Clinic Noteon 07-06-2024 Urology Office/Clinic Note Urology Office/Clinic Note Chief Complaint 6month f/u HPI Staff 58 yr old male here for 6 month f/u with PSA Dx: elevated PSA, BPH with urinary obstruction, prostatitis and hx of nephrolithiasis. Tamsulosin 0.4mg BID and Dutasteride 0.5mg qd. PSA 10/07/23- 3.40 01/02/24- 3.64 07/05/24 - 2.30 Dysuria: denies Incomplete bladder emptying: denies Hematuria: denies Frequency: every 3-4hrs Urgency: denies Nocturia: varies, sometimes not at all, sometimes 1-2x Stream: strong stream Leaking: denies Post void dripping: denies Wearing pads/ Depends: denies Urge incontinence: denies Stress incontinence:denies Incontinence without Sensory Awareness: denies Abdominal pain: denies Flank pain: denies Sexual complaints: denies History of Present Illness Tests reviewed: reviewed UA & PSA. I have reviewed the previous health record information and history for this patient from Dr. Lewis. I have reviewed and verified the staff [...] HPI. Physical Exam Vitals & Measurements HR: 78(Peripheral) BP: 188/114 HT: 72 in HT: 183 cm WT: 117 kg WT: 257.4 lb BMI: 34.94 General Appearance: alert, no distress, well nourished, well developed male. Prostate: normal prostate, estimated weight 45 gms, no hard nodule observed. Assessment/Plan 1. Elevated PSA (R97.20: Elevated prostate specific antigen [PSA]) PSA: 09/28/16 - 2.20 02/25/23 - 6.97 05/05/23 - 10.9 & 19.3% (after possible prostatitis tx) 10/07/23 - 3.40 (6.80 Dutasteride) (screening ordered by PCP) 01/02/24 - 3.64 (7.28 Dutasteride) 07/05/24 - 2.30 (4.6 Dutasteride) No family hx of prostate cancer. S/p TRUS/bx 06/14/23 - Mild acute chronic inflammation in 3 cores. Prostate volume 60.5 cc. Decrease in PSA is favorable. Will cont to monitor. RAYSHAWN: ~45g, no nodules. -PSA in 12 mos 2. BPH with urinary obstruction (N40.1: Benign prostatic hyperplasia with lower urinary tract symptoms) Prostate US 03/16/23 - enlarged prostate measuring 6.1 x 5.6 x 4.6 cm. 82.7 cc. Taking Tamsulosin 0.4mg bid and Dutasteride 0.5mg qd. Empties to completion. Strong stream. Nocturia varies. -Cont meds wo changes -Cont symptomatic monitoring 3. Chronic prostatitis (N41.1: Chronic prostatitis) S/p TRUS/bx 06/14/23 - Mild acute chronic inflammation in 3 cores. UA today shows trace-intact blood and trace leuks. Asymptomatic. Reports he will intermittently smell his urine but this is likely attributed to dehydration. -Cont symptomatic monitoring 4. History of nephrolithiasis (Z87.442: Personal history of urinary calculi) Asymptomatic. No recent imaging. [1] Follow-up With When Contact Information DEBBIE AMADO, Jerzy Banda, URL [facility] [place] [address]- Additional Instructions: 1 year w/ PSA Patient Education Prostate Cancer Screening I, Kamilah Wallis, personally scribed for Dr. Lewis on 07/06/2024 09:14:34. . Documentation recorded by the scribhcong, Kamilah Wallis, accurately reflects the services(s) I performed and decisions made by me. Authenticated by Dr. Lewis on 07/06/2024 09:15:25. Problem List/Past Medical History Ongoing BMI 35.0-35.9,adult BPH with urinary obstruction Chews tobacco Chronic prostatitis Elevated PSA Family history of bladder cancer [...] more than 30 days ago Tobacco Use:. Never Smokeless Tobacco Use:. Cigarettes (more content not included)... Normal [facility] Comment on above: Result Comment: Elec tronically Signed By: Jerzy LEWIS MD\.br\Date and Time Signed: 07/06/24 09:15 EDT\.br\Electronically Co-Signed By: Kamilah Wallis.br\Date and Time Co-Signed: 07/06/24 09:14 EDT [facility] 01-04-2024 Lab Reports [id number] IFF Normal [facility] Ambulatory Visit Summaryon 0 01-02-2024 Ambulatory Visit Summary WAQAS DO :1965 Visit Date:01/02/2024 Ambulatory Visit Instructions Your Diagnosis Elevated PSA BPH with urinary obstruction History of nephrolithiasis Your Care Team Attending Physician - Jeryz LEWIS MD Primary Care Physician - Kev Moser [...] PSA, RAYSHAWN Where: [facility] [address], [place] [phone] Medications What How Much When Instructions Unchanged [...] that raise (more content not included)... Normal [facility] Lab Reportson 01-02-2024 Lab Reports [id number] IFF Normal [facility] Patient Educationon 01-02-20 Patient Education Oncology [...] Where to find more information ? The [employer] Society: www.cancer.org ? [employer] U[employer] Association: www.auanet.org Contact a health care [...] flu (more content not included)... Normal [facility] Urology Office/Clinic Noteon 01-02-2024 Urology Office/Clinic Note [...] and history for this patient from Dr. Lewis. I have reviewed and verified the staff [...] imaging. [1] Follow-up With When Contact Information DEBBIE AMADO, Jerzy Banda, URL [facility] [address], [place] [address]- [phone] Additional Instructions: 6 mos w/ PSA, RAYSHAWN Patient Education Prostate Cancer Screening Ramona Biggs, personally scribed for Dr. Lewis on 01/02/2024 11:35:58. . Documentation recorded by the scribe, Ramona Whitlock, accurately reflects the services(s) I performed and decisions made by me. Authenticated by Dr. Lewis on 01/02/2024 11:38:09. Problem List/Past Medical History [...] Vaccine Da (more content not included)... Normal [facility] Comment on above: Result Comment: Elec tronically Signed By: Jerzy LEWIS MD\.br\Date and Time Signed: 01/02/24 11:38 EDT\.br\Electronically Co-Signed By: Ramona Whitlock\.br\Date and Time Co-Signed: 01/02/24 11:36 EDT XR ABD FLAT UP_PA Nando 08-08 XR [...] by: DIDIER LEACH Date: 2022-08-08 20:40 Normal [facility] Vital Signs Date Time Vital Sign Value Performing Clinician Macey maurer 07-06-2024 08:43-0400 Diastolic blood pressure 114 mm[Hg] Jerzy LEWIS [facility] 07-06-2024 08:43-0400 Mean blood pressure 139 mm[Hg] Jerzy LEWIS [facility] 07-06-2024 08:43-0400 Systolic blood pressure 188 mm[Hg] Jerzy LEWIS [facility] 07-06-2024 08:38-0400 Blood Pressure Location Jerzy LEWIS [facility] 07-06-2024 08:38-0400 Diastolic blood pressure 119 mm[Hg] Jerzy LEWIS [facility] 07-06-2024 08:38-0400 Heart rate 78 /min Jerzy LEWIS [facility] 07-06-2024 08:38-0400 Systolic blood pressure 187 mm[Hg] Jerzy LEWIS [facility] 01-02-2024 10:51-0400 Blood Pressure Location Jerzy LEWIS [facility] 01-02-2024 10:51-0400 Diastolic blood pressure 78 mm[Hg] Jerzy LEWIS [facility] 01-02-2024 10:51-0400 Heart rate 74 /min Jerzy LEWIS [facility] 01-02-2024 10:51-0400 Respiratory rate 16 /min Jerzy LEWIS [facility] 01-02-2024 10:51-0400 Systolic blood pressure 135 mm[Hg] Jerzy LEWIS [facility] 07-01-2023 08:44-0400 Blood Pressure Location Jerzy LEWIS [facility] 07-01-2023 08:44-0400 Diastolic blood pressure 88 mm[Hg] Jerzy LEWIS [facility] 07-01-2023 08:44-0400 Heart rate 100 /min Jerzy LEWIS [facility] 07-01-2023 08:44-0400 Respiratory rate 16 /min Jerzy LEWIS [facility] 07-01-2023 08:44-0400 Systolic blood pressure 149 mm[Hg] Jerzy LEWIS [facility] 03-18-2023 11:44-0400 Blood Pressure Location Jerzytorres LEWIS [facility] 03-18-2023 11:44-0400 Diastolic blood pressure 88 mm[Hg] Jerzy LEWIS [facility] 03-18-2023 11:44-0400 Heart rate 100 /min Jerzy LEWIS [facility] 03-18-2023 11:44-0400 Respiratory rate 16 /min Jerzy LEWIS [facility] 03-18-2023 11:44-0400 Systolic blood pressure 138 mm[Hg] Jerzy LEWIS [facility] Encounters Encounter Date Encounter Type Care Provider Facility Start: 07-12-2025 ambulatory Jerzy LEWIS Facili ty:[facility] Start: 07-06-2024 End: 07-06-2024 ambulatory Jerzy LEWIS Facility:[facility] Start: 07-06-2024 End: 07-06-2024 Patient encounter procedure Jerzy LEWIS [facility] Start: 01-02-2024 End: 01-02-2024 ambulatory Jerzy LEWIS Facility:[facility] Start: 01-02-2024 End: 01-02-2024 Patient encounter procedure Jerzy LEWIS [facility] Start: 07-01-2023 End: 07-01-2023 Patient encounter procedure Jerzy LEWIS [facility] Start: 06-14-2023 End: 06-14-2023 Lab Drop off Jerzy LEWIS [facility] Start: 03-18-2023 End: 03-18-2023 Patient encounter procedure Jerzy LEWIS [facility] Start: 08-06-2022 End: 08-07-[address] KEV MOSER Facility:[facility] Procedures Date Procedure Procedure Detail Performing Clinician Start: 06-14-2023 Transrectal biopsy o f prostate using ultrasound guidance Jerzy LEWIS Start: 10-21-2017 Arthroscopy of knee Anna Marie LEWIS Comment on above: left excision of bone lynne wth left lower leg Jerzy LEWIS Myringotomy and inse rtion of short-term tympanic ventilation tube Jerzy LEWIS Comment on above: multiple as a child Immunizations Immunization Date Immunization Notes Care Provider Fa [facility] 08-19-2021 SARS-CoV-2 (COVID-19 ) mRNA-1273 vaccine Jerzy LEWIS [facility] Comment on above: Result Comment: 2022: TPV50 07-22-2021 SARS-CoV-2 (COVID-19 ) mRNA-1273 vaccine Jerzy LEWIS [facility] Comment on above: Result Comment: 2022: TPV50 11-09-1999 measles, mumps and rubella virus vaccine Jerzy LEWSI [facility] 11-09-1999 poliovirus vaccine, unspecified formulation Jerzy LEWIS [facility] Payers Date Payer Category Payer Unknown [id number] 1965 Unknown [id number] 1965 Unknown [id number] 1965 Unknown [id number] [id number] 1958 Private Health Insurance [id number] Social History Date Type Detail Facility Start: 03-18-2023 End: 07-06-2024 Tobacco smoking status Ex-smoker (finding) [facility] Tobacco smoking status Smokeless tobacco user within last 30 days [facility] Sex Assigned At Male [facility] Functional Status Date Assessment Result Facility 07-06-2024 Functional Status N/A [facility] 01-02-2024 Functional Status N/A [facility] 07-01-2023 Functional Status N/A [facility] 03-18-2023 Functional Status N/A [facility] Clinical Notes 03-18-2023 to 07-06-2024 Note Date & Type Note Facility 07-06-2024 Hospital Discharge instructions Patient Education 07/06/2024 09:13:59 Prostate Cancer Screening Prostate Cancer Screening Prostate [...] treatment? Where to find more information The [employer] Cancer Society: www.cancer.org Swiss Urological Association: www.auanet.org Contact a health care [...] provider. Document Revised: 03/01/2022 Document Reviewed: 03/01/2022 Elsevier Patient Education 2023 [employer]. Follow Up Care 01/02/2024 11:38:38 With:DEBBIE AMADO, Jerzy Banda, URL Address: [address] [place] [address]- When: Unknown [facility] 07-06-2024 Note Patient Education Oncology Prostate Cancer Screening Prostate [...] Where to find more information ? The [employer] Cancer Society: www.cancer.org ? [employer] Urological Association: www.auanet.org Contact a health care [...] bladder and in front of the rectum. (more content not included).Emeka. [facility] 01-02-2024 Hospital Discharge instructions Patient Education 01/02/2024 [...] treatment? Where to find more information The [employer] Cancer Society: www.cancer.org Swiss Urological Association: www.auanet.org Contact a health care [...] provider. Document Revised: 03/01/2022 Document Reviewed: 03/01/2022 Finomial Patient Education 2022 [employer]. Follow Up Care 07/01/2023 09:34:33 With:DEBBIE AMADO, Jerzy Banda, URL Address: [facility] [address] , [place] [address]- [phone] When: Unknown Comments:6 mos w/ PSA, RAYSHAWN [facility] 07-01-2023 Hospital Discharge instructions Patient Education 07/01/2023 [...] treatment? Where to find more information The [employer] Cancer Society: www.cancer.org Swiss Urological Association: www.auanet.org Contact a health care [...] provider. Document Revised: 03/01/2022 Document Reviewed: 03/01/2022 Finomial Patient Education 2022 [employer]. Follow Up Care 06/02/2023 15:12:45 With:DEBBIE AMADO, Jerzy Banda, URL Address: [facility] [address] , [place] [address]- [phone] When: Unknown [facility] 03-18-2023 Hospital Discharge instructions Patient Education 03/18/2023 [...] Follow these instructions at home: Medicines Take ukxz-ifr-aapyubr and prescription medicines only as told by [...] important. Where to find more information National [place] of Diabetes and Digestive and Kidney Diseases: [...] depends on the type of prostatitis. Take ciyf-pho-eifache and prescription medicines only as told by [...] provider. Document Revised: 10/10/2020 Document Reviewed: 10/10/2020 Finomial Patient Education 2022 [employer]. Follow Up Care 03/08/2023 10:24:41 With:Jerzy LEWIS MD, URL Address: [address] [place] [address]- When:Within 2 Month(s) Comments:PSA [facility] Evaluation + Plan note Future Appointments Appointment Date:05/27/2023 10:30:00 AM Scheduled Provider:Jerzy LEWIS MD Location:[facility] Appointment Type:URO Office Visit Diagnostic Tests PendingPSA Total 03/18/23 [facility] Evaluation + Plan note Future Appointments Appointment Date:07/01/2023 08:45:00 AM Scheduled Provider:Jerzy LEWIS MD Location:[facility] Appointment Type:URO Office Visit Diagnostic Tests PendingProstate Histology ([facility]) 06/14/23 [facility] Evaluation + Plan note Future Appointments Appointment Date:01/02/2024 10:30:00 AM Scheduled Provider:[facility] Type:[facility] Office Visit Diagnostic Tests PendingPSA Total 07/01/23 [facility] Evaluation + Plan note Future Appointments Appointment Date:07/06/2024 08:30:00 AM Scheduled Provider:Jerzy LEWIS MD Location:[facility] Appointment Type:URO Office Visit Diagnostic Tests PendingPSA Total 01/02/24 [facility] Evaluation + Plan note Future Appointments Appointment Date:07/12/2025 08:30:00 AM Scheduled Provider:Jerzy LEWIS MD Location:[facility] Appointment Type:URO Office Visit Diagnostic Tests PendingPSA Total 04/19/25 [facility] Hospital course Narrative No data available for this section [facility] Hospital Discharge instructions No data available for this section [facility] note No data available for this section [facility] Summary Purpose Family History No [...] and content) DATE CREATED AUTHOR 08/11/2022 [facility] DATE CREATED AUTHOR AUTHOR'S ORGANIZ ATION 07/08/2024 [facility] Patient Care team informatio n (unrecognized section and content) Personnel Name: Kev Moser MD Address: Address: [address] [place] [address] Personnel Name: Kev Moser MD Address: Address: [address] [place] [address] Personnel Name: Kev Moser MD Address: Address: [address] [place] [address] Personnel Name: Kev Moser MD Address: Address: [address] [place] [address] Personnel Name: Kev Moser MD Address: Address: [address] [place] [address] FOR RECORDS PERTAINING TO PATIENTS WHO ARE [...] BE BASED ON THE PRIMARY CLINICAL RECORDS. [facility]. provides no warranty or guarantee of the accuracy or completeness of information in this document.
[2025-02-19 09:48] LABS: Basophils Absolute Auto 0.1 10^3/uL (0.0-0.1); Basophils Percent Auto 1.3 % (0.2-2.0); Eosinophils Absolute Auto 1.1 10^3/uL (0.0-0.7); Eosinophils Percent Auto 14.7 % (0.9-7.0); Hematocrit 40.6 % (42.0-54.0); Hemoglobin 13.7 g/dL (14.0-18.0); Immature Granulocytes Abs Auto 0.02 10^3/uL (0.00-0.03); Immature Granulocytes Pct Auto 0.3 % (0.0-0.5); Lymphocytes Absolute Auto 2.1 10^3/uL (1.2-3.8); Lymphocytes Percent Auto 29.4 % (20.5-60.0); Mean Corpuscular HGB Conc 33.7 g/dL (29.9-35.2); Mean Corpuscular Hemoglobin 29.8 pg (25.9-34.0); Mean Corpuscular Volume 88.5 fL (80.0-94.0); Mean Platelet Volume 9.8 fL (9.5-13.5); Monocytes Absolute Auto 0.7 10^3/uL (0.3-0.8); Monocytes Percent Auto 9.1 % (1.7-12.0); Neutrophils Absolute Auto 3.2 10^3/uL (1.4-6.5); Neutrophils Percent Auto 45.2 % (43.0-75.0); Platelet Count 313 10^3/uL (150-450); Red Blood Count 4.59 10^6/uL (4.70-6.10); Red Cell Distribution Width 12.5 % (11.0-15.0); White Blood Count 7.1 10^3/uL (4.0-11.0)
[2025-02-19 10:31] LABS: Alanine Aminotransferase 28 U/L (16-63); Albumin Globulin Ratio 0.8; Albumin Level 3.4 g/dL (3.4-5.0); Alkaline Phosphatase 118 U/L (46-116); Anion Gap 14.1; Aspartate Amino Transferase 14 U/L (15-37); BUN Creatinine Ratio 18.4; Bilirubin Total 0.4 mg/dL (0.2-1.0); Calcium 9.2 mg/dL (8.5-10.1); Carbon Dioxide 25.3 mmol/L (21.0-32.0); Chloride 106 mmol/L (98-107); Chol HDL Ratio 5.4; Cholesterol 217 mg/dL (<=200); Estimated GFR (African America 57 (>=60 mL/min/1.73m^2); Estimated GFR (Non-African Ame 47 (>=60 mL/min/1.73m^2); Free T3 2.26 pg/mL (2.18-3.98); Globulin 4.1 g/dL; Glucose 117 mg/dL (74-106); HDL Cholesterol 40 mg/dL (40-60); Potassium 4.4 mmol/L (3.5-5.1); Sodium 141 mmol/L (136-145); Thyroid Stimulating Hormone 1.196 uIU/mL (0.358-3.740); Total Protein 7.5 g/dL (6.4-8.2); Triglycerides 104 mg/dL (<=150); VLDL CHOLESTEROL 20.8 mg/dL
[2025-02-19 11:27] LABS: Prostate Specific Antigen Scrn 2.09 ng/mL (<=4.00)
[2025-02-19 12:43] LABS: Estimated Average Glucose 140 mg/dL; Glycohemoglobin A1C 6.5 % (4.5-6.2)
[2025-02-21 18:09] LABS: Insulin 17.1 uIU/mL (2.6-24.9)
== END 2025-02-19 09:14 | disposition home or self-care (01) ==
LOC: LAB 09:14
PROVIDERS: PCP Family Medicine; Visit Provider Family Medicine
DX: Z00.00 Encounter for general adult medical examination without abnormal findings (principal); Z12.5 Encounter for screening for malignant neoplasm of prostate
CPT/HCPCS: 36415; 80053; 80061; 83036; 83525; 84436; 84443; 84481; 85025; G0103

== ENCOUNTER 2025-07-08 20:54 | Outpatient (OUT) | payer OTHER, SELFPAY ==
--- OUTSIDE RECORDS SUMMARY | 2025-07-08 20:56 | XMS_ITS | CCD ---
Author Organization [facility] Care Team Providers Care Chute Greaser Name Role Phone DR KEV MOSER Admitting Unavailable DR KEV MOSER Attending Unavailable DR KEV MOSER Primary Care Unavailable DR KEV MOSER Consulting Unavailable DIDIER LEACH Consulting Unavailable Kev Moser Primary Care Physician AREN FUENTES Referring Unavailable AREN FUENTES Attending Unavailable AREN FUENTES Referring Unavailable Kev Moser MD Primary Care Provider [phone] Jerzy LEWIS Attending Unavailable Jerzy LEWIS Attending Unavailable Allergies Allergy Classification Reported Allergen(s) Allergy Type Date of Onset Reaction(s) Facility (2 sources) atorvastatin Drug Allergy 06-10-2025 [facility] Medications Current Medications Medication Drug Class(es) Dates Sig (Normalized) Sig (Original) carvedilol 12.5 mg oral tablet (9 sources) alpha-Adrenergic Wily, beta-Adrenergic Wily Start: 05-27-2025 take 1 tablet by mouth twice daily at mealtime carvedilol (Coreg) 12.5 MG tablet TAKE 1 TABLET BY MOUTH TWICE A DAY WITH FOOD FOR 90 DAYS 05/27/2025 Active Start: 03-18-2023 carvedilol 6.2 5 mg Tab Refills(s) 0 Start Date: 03/18/23 [...] week(s), # 56 cap(s), Refills(s) 0, Pharmacy: [facility]/pharmacy #[id number], 183, cm, 03/18/23 11:48:00 EDT, Height/Length Dosing, 120, kg, 03/18/23 11:48:00 EDT, Weight Dosing Start Date: 03/18/23 Stop Date: 04/15/23 Status: Ordered dutasteride 0.5 mg oral capsule (4 sources) 5-alpha Reductase Inhibitor Start: 07-07-2023 take 1 capsule by mouth once daily dutasteride 0.5 mg Cap 0.5 mg = 1 cap(s), Oral, Daily, # 30 cap(s), Refills(s) 11, [id number], cm, 07/01/23 8:50:00 EDT, Height/Length Dosing, 120, kg, 07/01/23 8:50:00 EDT, Weight Dosing Start Date: 07/07/23 Status: Ordered ibuprofen 200 mg oral tablet (2 sources) Nonsteroidal Anti-inflammatory Drug ibuprofen 200 MG tablet Take by mouth Active irbesartan 300 mg oral tablet (7 sources) Angiotensin 2 Receptor Wily Start: 03-18-2023 irbesartan 300 mg Tab Refills(s) 0 Start Date: 03/18/23 Status: Ordered Multi Vitamin+ (2 sources) Start: 01-02-2024 Multi Vitamin+ Refill(s) 0 Start Date: 01/02/24 Status: Ordered tamsulosin hydrochloride 0.4 mg oral capsule (7 sources) alpha-Adrenergic Wily Start: 08-24-2023 take 1 capsule by mouth twice daily tamsulosin 0.4 mg Cap 0.4 mg = 1 cap(s), Oral, BID, # 180 cap(s), Refills(s) 3, [id number], cm, 07/01/23 8:50:00 EDT, Height/Length Dosing, 120, kg, 07/01/23 8:50:00 EDT, Weight Dosing Start Date: 08/24/23 Status: Ordered Start: 03-18-2023 take 1 capsule by [facility] every twenty-four hours tamsulosin (Flomax) 0.4 MG 24 hr capsule Take 0.4 mg by mouth 03/18/2023 Active Start: 03-18-2023 take 1 capsule by mouth once d aily tamsulosin 0.4 mg Cap 0.4 mg = 1 cap(s), Oral, Daily, # 30 cap(s), Refills(s) 11, [id number] 183, cm, 03/18/23 11:48:00 EDT, [...] of meniscus of knee 09-30-2017 Episodic Osteoarthritis (7 sources) Osteoarthritis of knee; Translations: [Primary gonarthrosis, bilateral] 09-30-2017 Chronic Other diseases of kidney and [...] Name Value Interpretation Reference Range Facil ity No Panel Informationon 06-10 Radiology Study observation (narrative) [employer] XR Knee - left 3 [facility] Result: Three views of the bilateral knees; weightbearing, sunrise, lateral were taken today in the office are reviewed, and saved to the permanent medical record. He has complete loss of the medial joint spaces at both knees. There are marginal osteophytes, subchondral sclerosis. 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 Moderate arthritic changes at the patellofemoral compartments. [employer] XR Knee - right 3 [facility] Result: Three views of the bilateral knees; weightbearing, sunrise, lateral were taken today in the office are reviewed, and saved to the permanent medical record. He has complete loss of the medial joint spaces at both knees. There are marginal osteophytes, subchondral sclerosis. 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 Moderate arthritic changes at the patellofemoral compartments. [employer] Ambulatory Visit Summaryon 1 Ambulatory Visit Summary [...] Jerzy LEWIS MD Where: [facility] [place] [id number]- You Need to Schedule the Following Appointments Follow Up with Jerzy LEWIS MD, URL When: Where: [facility] [place] [address]- Medications What How Much When Instructions Unchanged [...] or BP (more content not included)... Normal Balaji [facility] Urology Office/Clinic Noteon 07-06-2024 Urology Office/Clinic [...] Information DEBBIE AMADO, Jerzy Banda, URL [address] [place] [address]- Additional Instructions: 1 year w/ PSA Patient Education Prostate Cancer Screening I, Kamilah Wallis, personally scribed for Dr. Lewis on 07/06/2024 09:14:34. . Documentation recorded by the scribe, Kamilah [...] Use:. Cigarettes (more content not included)... Normal [facility] Comment on above: Result Comment: Elec tronically Signed By: Jerzy LEWIS MD\.br\Date and Time Signed: 07/06/24 09:15 EDT\.br\Electronically Co-Signed By: Kamilah Wallis\.br\Date and Time Co-Signed: 07/06/24 09:14 EDT XR ABD FLAT UP_PA Nando 08-08 [...] by: DIDIER LEACH Date: 2022-08-08 20:40 Normal [facility] Vital Signs Date Time Vital Sign Value Performing Clinician Facility 06-10-2025 08:45-0400 Body height 181.6 cm Aren Fuentes DO Work Phone: [facility] 06-10-2025 08:45-0400 Body mass index (BMI) [Ratio] 37.55 kg/m2 Aren Fuentes DO Work Phone: [facility] 06-10-2025 08:45-0400 Body weight 123.83 kg Aren Fuentes DO Work Phone: [facility] 07-06-2024 08:43-0400 Diastolic blood pressure 114 mm[Hg] Jerzy LEWIS [facility] 07-06-2024 08:43-0400 Mean blood pressure 139 mm[Hg] Jerzy LEWIS [facility] 07-06-2024 08:43-0400 Systolic blood pressure 188 mm[Hg] Jerzy LEWIS [facility] 07-06-2024 08:38-0400 Blood Pressure Location Jerzy LEWIS [facility] 07-06-2024 08:38-0400 Diastolic blood pressure 119 mm[Hg] Jerzy LEWIS [facility] 07-06-2024 08:38-0400 Heart rate 78 /min Jerzy LEWIS [facility] 07-06-2024 08:38-0400 Systolic blood pressure 187 mm[Hg] Jerzy LEWIS [facility] 01-02-2024 10:51-0400 Blood Pressure Location Jerzy LEWIS [facility] 01-02-2024 10:51-0400 Diastolic blood pressure 78 mm[Hg] Jerzy LEWIS [facility] 01-02-2024 10:51-0400 Heart rate 74 /min Jerzy LEWIS [facility] 01-02-2024 10:51-0400 Respiratory rate 16 /min Jerzy LEWIS [facility] 01-02-2024 10:51-0400 Systolic blood pressure 135 mm[Hg] Jerzy LEWIS [facility] 07-01-2023 08:44-0400 Blood Pressure Location Jerzy LEWIS [facility] 07-01-2023 08:44-0400 Diastolic blood pressure 88 mm[Hg] Jerzy LEWIS [facility] 07-01-2023 08:44-0400 Heart rate 100 /min Jerzy LEWIS [facility] 07-01-2023 08:44-0400 Respiratory rate 16 /min Jerzy LEWIS [facility] 07-01-2023 08:44-0400 Systolic blood pressure 149 mm[Hg] Jerzy LEWIS [facility] 03-18-2023 11:44-0400 Blood Pressure Location Jerzy LEWIS [facility] 03-18-2023 11:44-0400 Diastolic blood pressure 88 mm[Hg] Jerzy LEWIS [facility] 03-18-2023 11:44-0400 Heart rate 100 /min Jerzy LEWIS [facility] 03-18-2023 11:44-0400 Respiratory rate 16 /min Jerzy LEWIS [facility] 03-18-2023 11:44-0400 Systolic blood pressure 138 mm[Hg] Jerzy LEWIS [facility] Encounters Encounter Date Encounter Type Care Provider Facility Start: 09-23-2025 ambulatory Jerzy LEWIS Facili ty:[facility] Start: 06-10-2025 End: 06-10-2025 Patient encounter procedure Aren Fuentes DO Work Phone: [facility] Comment on above: Bilateral primary os teoarthritis of knee (Primary Dx) Start: 06-10-2025 End: 06-10-2025 ambulatory AREN FUENTES Not Available Start: 07-06-2024 End: 07-06-2024 ambulatory Jerzy LEWIS Facility:[facility] Start: 07-06-2024 End: 07-06-2024 Patient encounter procedure Jerzy LEWIS [facility] Start: 01-02-2024 End: 01-02-2024 Patient encounter procedure Jerzy LEWIS [facility] Start: 07-01-2023 End: 07-01-2023 Patient encounter procedure Jerzy LEWIS [facility] Start: 06-14-2023 End: 06-14-2023 Lab Drop off Jerzy LEWIS [facility] Start: 03-18-2023 End: 03-18-2023 Patient encounter procedure Jerzy LEWIS [facility] Start: 08-06-2022 End: 08-07-[address] KEV MOSER Facility:[facility] Procedures Date Procedure Procedure Detail Performing Clinician Start: 06-10-2025 Radiologic examinati on knee 3 views Aren Fuentes DO Work Phone: Start: 06-14-2023 Transrectal biopsy o f prostate using ultrasound guidance Jerzy LEWIS Start: 04-13-2023 Colonoscopy Aren levine DO Work Phone: Start: 10-21-2017 Arthroscopy of knee Anna Marie LEWIS Comment on above: left excision of bone lynne wth left lower leg Jerzy LEWIS Myringotomy and inse rtion of short-term tympanic ventilation tube Jerzy LEWIS Comment on above: multiple as a child Plan of Treatment Date Care Activity Detail Author Start: 04-13-2033 Screening for malign ant neoplasm of colon [facility] Start: 05-20-2025 Influenza vaccination Influenza Vacc ine (#1) [facility] Start: 1965 Screening for malign ant neoplasm of colon [facility] Immunizations Immunization Date Immunization Notes Care Provider Fa cility 08-19-2021 SARS-CoV-2 (COVID-19 ) mRNA-1273 vaccine Jerzy LEWIS [facility] Comment on above: Result Comment: 2022: TPV50 07-22-2021 SARS-CoV-2 (COVID-19 ) mRNA-1273 vaccine Jerzy LEWIS [facility] Comment on above: Result Comment: 2022: TPV50 11-09-1999 measles, mumps and rubella virus vaccine Jerzy LEWIS [facility] 11-09-1999 poliovirus vaccine, unspecified formulation Jerzy LEWIS [facility] Payers Date Payer Category Payer Managed Care O (unspecified) [employer] [id number] 1966 Unknown [id number] 1966 Unknown [id number] 1966 Unknown [id number] 1966 Unknown [id number] 1966 Unknown [id number] 1966 Unknown [id number] 1959 Private Health Insurance [id number] Social History Date Type Detail Facility Start: 03-18-2023 End: 05-10-2023 Tobacco smoking status Ex-smoker (finding) [facility] Tobacco smoking status Smokeless tobacco user within last 30 days [facility] Start: 06-10-2025 Sex Assigned At Male F [facility] End: 09-19-1999 History of tobacco use Current smoker [facility] End: 09-19-1999 History of tobacco use Cigarette Smoker [facility] Start: 05-10-2023 Tobacco use and exposure Smokeless tobacco non-user [facility] Start: 06-10-2025 Alcoholic beverage intake Lifetime non-drinker (finding) [facility] Start: 06-10-2025 History of Social function [facility] Start: 05-10-2023 Alcohol Comment caffeine intak e: 1-2 cups per day of energy drinks [facility] Start: 1965 Sex assigned at Not on file [facility] Start: 05-04-2023 Gender identity Identifies as male gender (finding) [facility] Functional Status Date Assessment Result Facility 07-06-2024 Functional Status N/A [facility] 01-02-2024 Functional Status N/A [facility] 07-01-2023 Functional Status N/A [facility] 03-18-2023 Functional Status N/A [facility] Clinical Notes 03-18-2023 to 06-10-2025 Aren Fuentes DO - 06/10/2025 8:45 AM EDT Note Date & Type Note Facility 06-10-2025 History of Present illness Narrative Images from the original note were not included. @ENCDATE@ Waqas Castelan Beverley is a 59 y.o. male who presents for Pain of the Right Knee and Pain of the Left Knee HPI: History of Present Illness The patient is a 51-year-old male who presents today for both of his knees. He received cortisone injections at his last office visit on 05/10/2023. He reports experiencing equal discomfort in both knees. He mentions that the relief provided by the cortisone injections is temporary, lasting only a couple of weeks. He is interested in exploring the option of gel injections for his knees. SUBJECTIVE: MEDICATIONS: Current Outpatient Medications Medication Instructions carvedilol (Coreg) 12.5 MG tablet TAKE 1 TABLET BY MOUTH TWICE A DAY WITH FOOD FOR 90 DAYS carvedilol (COREG) 6.25 mg dutasteride (Avodart) 0.5 MG capsule 1 capsule ibuprofen 200 MG tablet Take by mouth irbesartan (AVAPRO) 300 mg, Daily tamsulosin (FLOMAX) 0.4 mg ALLERGIES: Allergies Allergen Reactions Atorvastatin Other Reaction(s): Unknown SURGICAL HISTORY: Past Surgical History: Procedure Laterality Date [place] KNEE SCOPE,DIAGNOSTIC Right 10/21/2017 [facility] FAMILY HISTORY: Family History Problem Relation Name Age of Onset Stroke Mother Heart disease Father Cancer Father SOCIAL HISTORY: Social History Tobacco Use Smoking status: Former Current packs/day: 0.00 Types: Cigarettes Quit date: 1999 Years since quittin.7 Smokeless tobacco: Never Substance Use Topics Alcohol use: Never Comment: caffeine intake: 1-2 cups per day of energy drinks Drug use: Never Depression: Not on file REVIEW OF SYMPTOMS: Review of Systems The review of systems, history and current medications list are all reviewed today. OBJECTIVE: Visit Vitals Ht 5' 11.5 Wt 273 lb BMI 37.55 kg/m Smoking Status Former BSA 2.5 m Physical Exam Alert and oriented, no acute distress. Mood and affect are appropriate. Ambulating independently. Gait is nonantalgic. bilateral knees: lack full extension, flex to 115 degrees, negative anterior or posterior drawer, no varus or valgus instability, no swelling; tender medial joint lines right knee: well-healed [facility]roscopy [facility] Ex[facility] Results Three views of the bilateral knees; weightbearing, sunrise, lateral were taken today in the office are reviewed, and saved to the permanent medical record. He has complete loss of the medial joint spaces at both knees. There are marginal osteophytes, subchondral sclerosis. 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 Moderate arthritic changes at the patellofemoral compartments. ASSESSMENT AND PLAN: I reviewed the history, physical exam, diagnostic studies, and diagnosis with the patient. Assessment & Plan 1. Advanced degenerative osteoarthrosis, bilateral knees. A series of gel injections will be initiated upon approval from [facility], which typically takes a couple of weeks. Kellgren Harvey grade 4. In the meantime, cortisone injections were administered today. A pamphlet with information about the gel injections was provided. After informed consent and using sterile technique, the superolateral aspect of the bilateral knee(s) was prepped with alcohol and Betadine. The skin was anesthetized with ethyl chloride and the knee was then injected with a mixture of 1.5 mL of betamethasone and 1.5 mL of 1% plain lidocaine with a 25-gauge 1 1/2 inch needle. The patient tolerated this well. A Band-Aid was applied. The patient was instructed to ice the knee and to watch for any signs of infection including redness, increased pain in the knee, drainage from the injection site, fever, chills, etc. The patient was instructed to call the office if he/she experiences any adverse reaction from the injection. A total of 30 to 39 minutes was spent on this patient encounter which included chart review, check in, nurse triage, history taking, physical examination, diagnostic study review, patient counseling and discussion, entering information into the patient's medical record, and coordinating patient care. Diagnoses and all orders for this visit: Bilateral primary osteoarthritis of knee - XR knee 3 views right - XR knee 3 views left Aren Fuentes D.O. Attestation This note was created using voice recognition through [employer]. documented in this encounter [facility] 07-06-2024 Hospital Discharge instructions Patient Education 07/06/2024 [...] treatment? Where to find more information The Canadian Cancer Society: www.cancer.org Canadian Urological Association: www.auanet.org Contact a health care [...] provider. Document Revised: 03/01/2022 Document Reviewed: 03/01/2022 [employer] Patient Education 2023 [employer]. Follow Up Care 01/02/2024 11:38:38 With:DEBBIE AMADO, Jerzy Banda, URL Address: [address] [place] [address]- When: Unknown [facility] 07-06-2024 Note Patient Education Oncology Prostate Cancer [...] Where to find more information ? The [place] Cancer Society: www.cancer.org ? Canadian Urological Association: www.auanet.org Contact a health care [...] front of the rectum. (more content not included)... [facility] 01-02-2024 Hospital Discharge instructions Patient Education [...] treatment? Where to find more information The Canadian Cancer Society: www.cancer.org Canadian Urological Association: www.auanet.org Contact a health care [...] provider. Document Revised: 03/01/2022 Document Reviewed: 03/01/2022 [employer] Patient Education 2022 [employer]. Follow Up Care 07/01/2023 09:34:33 With:DEBBIE AMADO, Jerzy Banda, URL Address: [facility] [address] , [place] [phone] When: Unknown Comments:6 mos w/ PSA, RAYSHAWN [facility] 07-01-2023 Hospital Discharge instructions Patient Education [...] treatment? Where to find more information The Canadian Cancer Society: www.cancer.org Canadian Urological Association: www.auanet.org Contact a health care [...] provider. Document Revised: 03/01/2022 Document Reviewed: 03/01/2022 [employer] Patient Education 2022 [employer] Follow Up Care 06/02/2023 15:12:45 With:DEBBIE AMADO, Jerzy Banda, URL Address: [facility] [address] , [place] [phone] When: Unknown [facility] Hospital Discharge instructions Patient Education 03/18/2023 [...] Follow these instructions at home: Medicines Take bhlt-iiw-phiqnke and prescription medicines only as told by [...] important. Where to find more information National [place] of Diabetes and Digestive and Kidney Diseases: [...] depends on the type of prostatitis. Take [id number]-[id number] and prescription medicines only as told by [...] provider. Document Revised: 10/10/2020 Document Reviewed: 10/10/2020 [employer] Patient Education 2022 [employer]. Follow Up Care 03/08/2023 10:24:41 With:Jerzy LEWIS MD, URL Address: [address] [place], [place] [id number] When:Within 2 Month(s) Comments:PSA [facility] Evaluation + Plan note Future Appointments Appointment Date:05/27/2023 10:30:00 AM Scheduled Provider:Jerzy LEWIS MD Location:[facility] Appointment Type:URO Office Visit Diagnostic Tests PendingPSA Total 03/18/23 [facility] Evaluation + Plan note Future Appointments Appointment Date:07/01/2023 08:45:00 AM Scheduled Provider:Jerzy LEWIS MD Location:[facility] Appointment Type:URO Office Visit Diagnostic Tests PendingProstate Histology ([facility]) 06/14/23 [facility] Evaluation + Plan note Future Appointments Appointment Date:01/02/2024 10:30:00 AM Scheduled Provider:Jerzy LEWIS MD Location:[facility] Appointment Type:URO Office Visit Diagnostic Tests PendingPSA Total 07/01/23 [facility] Evaluation + Plan note Future Appointments Appointment Date:07/06/2024 08:30:00 AM Scheduled Provider:Jerzy LEWIS MD Location:[facility] Appointment Type:URO Office Visit Diagnostic Tests PendingPSA Total 01/02/24 [facility] Evaluation + Plan note Future Appointments Appointment Date:07/12/2025 08:30:00 AM Scheduled Provider:Jerzy LEWIS MD Location:[facility] Appointment Type:URO Office Visit Diagnostic Tests PendingPSA Total 04/19/25 [facility] Evaluation note Diagnosis Bilateral primary osteoarthritis of knee- Primary [facility] Narr[facility] No data available for this section [facility] Hospital Discharge instructions No data available for this section [facility] No data available for this section [facility] Summary Purpose Family History No Family History Records Found No data available for this section No data available for this section No data available for this section No Family History Records FoundNo Family History Records Found Advance Directives No Advanced Directives Records FoundNo Advanced Directives Records FoundNo Advanced Directives Records Found Additional Source Comments (unrecognized sect ion and content) No Status Records FoundNo Status Records FoundNo Status Records Found INFORMATION SOURCE (unrecogn ized section and content) DATE CREATED AUTHOR 08/11/2022 [facility] DATE CREATED AUTHOR AUTHOR'S ORGANIZ ATION 06/10/2025 [facility] EPIC DATE CREATED AUTHOR AUTHOR'S ORGANIZ ATION 06/30/2025 [facility] Patient Care team informatio n (unrecognized section and content) Chute Greaser Relationship Specialty Start Date End Date Kev Moser MD [address] [place] [address] PCP - General Family Medicine 06/10/25 Reason for Visit (unrecogniz ed section and content) Reason Comments Pain FOR RECORDS PERTAINING TO PATIENTS WHO ARE [...] BE BASED ON THE PRIMARY CLINICAL RECORDS. [facility] [employer] [facility]. provides no warranty or guarantee of the accuracy or completeness of information in this document.
--- OUTSIDE RECORDS SUMMARY | 2025-07-08 20:57 | XMS_ITS | Clinical Summary ---
Author Organization [facility] Address [address] [place] [address] Care Team Providers Care Chief Clerk Shelter Name Role Phone Surendra Moser MD Primary Care Provider [phone] Allergies Active Allergy Reactions Criticality Noted Date Comments Atorvastatin 06/10/2025 Other Reaction(s): Unknown Medications carvedilol (Coreg) 6.25 MG tablet Take 6.25 mg by mouth Take with food. Active irbesartan (Avapro) 300 MG tablet Take 300 mg by mouth Daily Active tamsulosin (Flomax) 0.4 MG 24 hr capsule Take 0.4 mg by mouth 03/18/2023 Active ibuprofen 200 MG tablet Take by mouth Active dutasteride (Avodart) 0.5 MG capsule 1 capsule Active carvedilol (Coreg) 12.5 MG tablet TAKE 1 TABLET BY MOUTH TWICE A DAY WITH FOOD FOR 90 DAYS 05/27/2025 Active Active Problems No known active problems Encounters Date Type Department Care Team Description 06/10/2025 8:45 AM EDT Office Visit [facility] [address] [place] [phone] Aren Fuentes DO Bilateral primary osteoarthritis of knee (Primary Dx) 06/10/2025 8:05 AM EDT Ancillary Procedure [facility] [address] [phone] 06/10/2025 8:00 AM EDT Ancillary Procedure [facility] [address] [place] [phone] 06/10/2025 Travel from Last 3 Months Family History Medical History Relation Name Comments Cancer Father Heart disease Father Stroke Mother Relation Name Status Comments Father Mother Alive Social History Tobacco Use Types Packs/Day Years Used Date Smoking Tobacco: Former Cigarettes Q uit: 2000 Smokeless Tobacco: Never Tobacco Cessation:Counseling Given: Not Answered Alcohol Use Standard Drinks/Week Comments Never 0 (1 standard drink = 0.6 oz pure alcohol) caffeine intake: 1-2 cups per day of energy drinks Sex and Gender Information Value Date Recorded Sex Assigned at Not on file Legal Sex Male 8:13 PM EDT Gender Identity Male 05/04/2023 11:41 AM EDT Sexual Orientation Not on file Last Filed Vital Signs Vital Sign Reading Time Taken Comments Blood Pressure 140/77 11/24/2017 12:00 PM EST Pulse - - Temperature 36.4 C (97.5 F) 05/10/2023 10:44 AM EDT Respiratory Rate - - Oxygen Saturation - - Inhaled Oxygen Concentration - - Weight 124 kg (273 lb) 06/10/2025 8:45 AM EDT Height 181.6 cm (5' 11.5 ) 06/10/2025 8:45 AM ED T Body Mass Index 37.55 06/10/2025 8:45 AM EDT Plan of Treatment Upcoming Encounters Date Type Department Care Team (Late st Contact Info) Description 07/15/2025 8:15 AM EDT Procedure Visit [facility] [address] [facility] [place] [phone] Aren Fuentes DO [address] [place] [address] 07/22/2025 8:15 AM EST Procedure Visit [facility] [address] [place] [phone] Aren Fuentes DO [address] [place] [address] 08/05/2025 8:00 AM EST Procedure Visit [facility] [address] [place] [phone] Aren Fuentes, DO [address] [place] [address] Health Maintenance Due Date Last Done Comments CT Colonography 1966 FIT-DNA 1966 FIT 1966 FOBT 1966 Sigmoidoscopy 1966 Influenza Vaccine (#1) 2025 Colonoscopy 04/13/2033 04/13/2023 Colorectal Cancer Screening 04/13/2033 Procedures Procedure Name Priority Date/Time Associated Diagnosis Comments XR KNEE 3 VIEWS LEFT Routine 06/10/2025 7:41 AM EDT Bilateral primary osteoarthritis of knee XR KNEE 3 VIEWS RIGHT Routine 06/10/2025 7:41 AM EDT Bilateral primary osteoarthritis of knee from Last 3 Months Results * XR knee 3 views right (06/10/2025 7:41 AM EDT) Anatomical Region Laterality Modality Lower Extremities, Knee Right Radiogra phic Imaging Narrative 06/10/2025 6:38 PM EDT Imaging Result: Three views of the bilateral knees; weightbearing, sunrise, lateral were taken today in the office are reviewed, and saved to the permanent medical record. He has complete loss of the medial joint spaces at both knees. There are marginal osteophytes, subchondral sclerosis. 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 Moderate arthritic changes at the patellofemoral compartments. Aren Fuentes DO IMG XR PROCEDURES Final Result * XR knee 3 views left (06/10/2025 7:41 AM EDT) Anatomical Region Laterality Modality Lower Extremities, Knee Left Radiogra phic Imaging Narrative 06/10/2025 6:38 PM EDT Imaging Result: Three views of the bilateral knees; weightbearing, sunrise, lateral were taken today in the office are reviewed, and saved to the permanent medical record. He has complete loss of the medial joint spaces at both knees. There are marginal osteophytes, subchondral sclerosis. 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 Moderate arthritic changes at the patellofemoral compartments. Aren Fuentes DO IMG XR PROCEDURES Final Result from Last 3 Months Insurance [facility] Address: [facility] [id number] [place] [id number] Care Teams Chief Clerk Shelter Relationship Specialty Start Date End Date Surendra Moser MD [address] [place] [address] PCP - General Family Medicine 06/10/25
== END 2025-07-08 20:55 | disposition home or self-care (01) ==
PROVIDERS: PCP Family Medicine; Visit Provider Family Medicine
DX: G47.33 Obstructive sleep apnea (adult) (pediatric) (principal)
CPT/HCPCS: 95810

== ENCOUNTER 2025-09-02 20:41 | Outpatient (OUT) | payer OTHER, SELFPAY ==
--- OUTSIDE RECORDS SUMMARY | 2025-09-02 20:45 | XMS_ITS | Patient Health Record ---
Author Organization [facility] in [place] Address [address] [place] [address] Care Team Providers Care And Rescue Fire Fighter [employer] Name Role Phone RaheemRafal wilkerson Primary Care Provider [phone] Allergies Allergen (clinical drug ingredient) Drug/Non Drug Allergy documented on EMR Reaction Allergy Type Onset Date Status atorvastatin Lipitor Unknown Drug Allergy Active Results Component Value Reference Range Notes CBC AUTO DIFF Reviewed date:02/19/2025 04:02:56 PM Interpretation: Performing Lab: Notes/Report: [facility] , White Blood Count 7.1 4.0-11.0 10 3/uL Red Blood Count4.594.70-6.10 10 6/oEKdtvtkszuk09.714.0-18.0 g/bSThpclhtluz50.6 42.0-54.0 %Mean Corpuscular Kfjrnv86.580.0-94.0 fLMean Corpuscular Hemoglobin 29.825.9-34.0 pgMean Corpuscular HGB Conc33.729.9-35.2 g/dLRed Cell Distribution Width12.511.0-15.0 %Platelet Hgsba283612-963 10 3/uLMean Platelet Volume9.89.5- 13.5 fLNeutrophils Percent Auto45.243.0-75.0 %Lymphocytes Percent Auto29.420.5- 60.0 %Monocytes Percent Auto9.11.7-12.0 %Eosinophils Percent Auto14.70.9-7.0 % Basophils Percent Auto1.30.2-2.0 %Immature Granulocytes Pct Auto0.30.0-0.5 % Neutrophils Absolute Auto3.21.4-6.5 10 3/uLLymphocytes Absolute Auto2.11.2-3.8 10 3/uLMonocytes Absolute Auto0.70.3-0.8 10 3/uLEosinophils Absolute Auto1.10.0- 0.7 10 3/uLBasophils Absolute Auto0.10.0-0.1 10 3/uLImmature Granulocytes Abs Auto0.020.00-0.03 10 3/uLPerforming Lab:see note - [facility] FREE T3 Reviewed date:02/19/2025 04:02:56 PM Interpretation: Performing Lab: Notes/Report: [facility] ,Free T32.262.18-3.98 pg/mLPerforming Lab:see [facility] GLYCOHEMOGLOBIN A1C Reviewed date:02/19/2025 04:02:56 PM Interpretation: Performing Lab: Notes/Report: [facility] ,Glycohemoglobin A1C6.54.5-6.2 % ADA THERAPEUTIC TARGET < 7.0 ADA RECOMMENDED LIMIT 4.0 - 6.0 > 7.0 ACTION SUGGESTED Estimated Average Rehjzxl296Mjmlfvvgxl Lab:see Critical access hospital - [facility] INSULIN Reviewed date:02/21/2025 08:02:25 PM Interpretation: Performing Lab: Notes/Report: Kristopher ,Hihelyv55.12.6-24.9 uIU/mL Performed at: [facility] Enterprise Application Architect: Phillip Kevin PhD, Phone: [phone] [address] [place], [place] [id number] Performing Lab:[facility] CenterLIPID PROFILE Reviewed date:02/19/2025 04:02:56 PM Interpretation: Performing Lab: Notes/Report: [facility] ,Wotycsdkmpafi687<=150 mg/rNIrvckkpmdpg362<=200 mg/dLHDL Qyybemmrpta4864-90 mg/dL <40 mg/dl - HIGH CARDIOVASCULAR RISK > or =60 mg/dl - LOW CARDIOVASCULAR RISK LDL Cholesterol Lvwalfyjyc846.0 130-159 mg/dl BORDERLINE HIGH <100 mg/dl OPTIMAL >190 mg/dl VERY HIGH 100-129 mg/dl NEAR OR ABOVE OPTIMAL 160-189 mg/dl HIGH VLDL FTAAHMNTSHT44.8Chol HDL Ratio5.4 >11.0 HIGH RISK 3.3 - 4.4 LOW RISK 7.1 - 11.0 MODERATE RISK 4.4 - 7.1 AVERAGE RISK Performing Lab:see note - [facility] LBPROF 14(COMP METB) Reviewed date:02/19/2025 04:02:56 PM Interpretation: Performing Lab: Notes/Report: [facility] ,Zjjass182512-971 mmol/LPotassium4.43.5-5.1 mmol/HLjcwrjjp45003-698 mmol/LCarbon Eafdoei48.321.0-32.0 mmol/LAnion Gap14.8Xpcujku02029-971 mg/dLBlood Urea Shxjwqwj30.07.0-18.0 mg/dLCreatinine1.520.70-1.30 mg/dLEstimated GFR ( Lysvybb71>=60 mL/min/1.73m 2Estimated GFR (Non- Ame47>=60 mL/min/1.73m 2 BUN Creatinine Ratio18.1Pmfmuqq5.28.5-10.1 mg/dLBilirubin Total0.40.2-1.0 mg/dL Aspartate Amino Ylmdiakwhww4229-61 U/LAlanine Csuhmlepfjktgrns7188-29 U/L Alkaline Yzwdknenlsg77349-507 U/LTotal Protein7.56.4-8.2 g/dLAlbumin Level3.4 3.4-5.0 g/dLGlobulin4.1Albumin Globulin Ratio0.8Performing Lab:see note - [facility] LBPSA SCREENING Reviewed date:02/19/2025 04:02:56 PM Interpretation: Performing Lab: Notes/Report: [facility] ,Prostate Specific Antigen Scrn2.09<=4.00 ng/mLPerforming Lab:see note - [facility] LBT4 Reviewed date:02/19/2025 04:02:56 PM Interpretation: Performing Lab: Notes/Report: [facility] ,T4 Thyroxine5.704.50-12.10 ug/dLPerforming Lab:see note - [facility] LBTSH Reviewed date:02/19/2025 04:02:56 PM Interpretation: Performing Lab: Notes/Report: [facility] ,Thyroid Stimulating Hormone1.1960.358-3.740 uIU/mLPerforming Lab:see noteML - [facility] LB Reason For Referral Reason Multiple moles on avani dy. Diagnosis 1 Enlarged skin mole ( D22.9) Referral Organization [facility] Referring Provider First Name Rafal Referring Provider Last Name Ehsan Referring Provider Speciality [facility] abdi Referred Provider Dermatology Stef Robles Referred Provider Specialty Dermatology Referral Priority Routine Diagnosis 1 Well adult (Z00.00) Referral Organization [facility] Referring Provider First Name Rafal Referring Provider Last Name Ehsan Referring Provider [facility] abdi Referred Provider Yosi Sanders Referred Provider Specialty General Surg emily Referral Priority Routine Medications Medication SIG (Take, Route, Frequency, Duration) Notes Start Date End Date Status Carvedilol 12.5 MG 1 tablet with food Orally Twi ce a day; Duration: 90 days ActiveBlood Glucose Meter --1 Device to check glucose four times daily DX E11.9; Duration: 365 days10/07/2023Not-TakingHumaLOG KwikPen 100 UNIT/MLsliding scale DX E11.9 Subcutaneous four times daily 141-200 3units; 201-250 5units; 251-300 8units; 301-350 12units; 351-400 15units; >400 15units call PCP; Duration: 30 days10/07/2023Not-TakingPen [place] 32G X 4 MMUse as directed four times daily per sliding scale; Duration: 30 daysDiagnosis: E11.9010/07/2023Not-Taking Dutasteride 0.5 MG1 capsule Orally at night; Duration: 30 daysActiveIrbesartan 300 MG1 tablet Orally Once a day; Duration: 30 daysActiveLancets 33G -1 lancet to poke finger four times daily DX E11.9; Duration: 90 days10/07/2023ctive Tamsulosin HCl 0.4 MG1 capsule Orally Once a day; Duration: 21 daysActiveTest Strips -1 test strip via meter 4 times daily DX E11.9; Duration: 90 days 10/07/2023Not-TakingVentolin HFA 108 (90 Base) MCG/ACT2 puff as needed Inhalation every 4 hrs; Duration: Not-TakingAzithromycin 250 MG2 tabs today then 1 tab Orally daily; Duration: 5 days12/12/2025Active Social History Tobacco Use: Social History Observation Description Date Details (start date - stop date) Former Smoker 09/19/1986 - 09/19/2004 Tobacco Use/Smoking Question Answer Notes Patient is a former smoker When did you start smoking?09/19/1986When did you stop smoking?09/19/2004Alcohol Screen (Audit-C) Question Answer Notes Did you have a drink containing alcohol in the p ast year? No Iofcmt8DiaghwukqsufbnBcyuopfoYWTOR-P (Standard) Question Answer Notes Did you have a drink containing alcohol in the p ast year? No Oqmfcx5XxcfdkzgazcwcaSbrddhsl Problems Problem Type SNOMED Code ICD Code Onset Dates Problem Status W/U Status Risk Notes Problem Type 2 diabetes mellitus with other specified complication (E11.69)Active confirmedProblemPneumonia (315087429)Pneumonia, unspecified organism (J18.9) ActiveconfirmedProblemDisorder of prostate (44971530)Other specified disorders of prostate (N42.89)ActiveconfirmedProblemSnoring (44837695)Snoring (R06.83) ActiveconfirmedProblemHypertension (82316073)Hypertension (I10)Activeconfirmed ProblemBilateral arthritis of knees (6169159995041845)Osteoarthritis of both knees (M17.0)ActiveconfirmedProblemWell adult (393343538)Well adult (Z00.00) ActiveconfirmedProblemHypertension (02880768)Uncontrolled hypertension (I10) ActiveconfirmedProblemhypercholesterolemia (disorder) (15624297) Hypercholesteremia (E78.00)ActiveconfirmedProblemDiabetes mellitus (55162382) Diabetes mellitus (E11.9)ActiveconfirmedProblemCOVID-19 (688172817)COVID-19 (U07.1)Activeconfirmed Vital Signs Blood pressure diastolic 80 mm Hg 06/04/2025 Srnfmg08 in06/04/2025lood pressure poplbhmn135 mm Hg06/04/20257510Jcvaqp376.4 lbs 05/27/2025BMI36.8 kg/m205/27/2025 Procedures Procedure Date Ordered Date Performed Result Body Sit e Sleep study - Diagnostic Polysonogram 05/27/2025 N/A Encounters Encounter Location Date Provider Diagnosis [facility] [address] [place] [address] 05/27/2025 Rafal Hoy [facility] [place] [address] 05/[facility] [place] [address]/[facility] [place] [address]/08/2025[facility] [place] [address]/[facility] [place] [address]/10/2024Doug HoyEnlarged skin mole D22.9B[facility] [place] [address]/11/2024[facility] [place] [address]/Doug HoyHypertension Y19RkiqrbvPark[facility] [place] [address]/10/2024Doug Hoy Hypertension I10 and Well adult Z00.00[place] [address] [place] [address]/04/2025Doug HoyType 2 diabetes mellitus with other specified complication E11.69 ; Uncontrolled hypertension I10 ;Snoring R06.83 and Well adult Z00.00 Assessments Encounter Date Diagnosis (ICD Code) Assessment Notes Treatment Notes Treatment Clinical Notes Section Notes 02/18/2025 Hypertension (ICD-10 - I10) 02/18/2025Well adult (ICD-10 - Z00.00)05/27/2025Type 2 diabetes mellitus with other specified complication (ICD-10 - E11.69)05/27/2025Uncontrolled hypertension (ICD-10 - I10)06/04/2025Hypertension (ICD-10 - I10)02/18/2025 Enlarged skin mole (ICD-10 - D22.9)05/27/2025Snoring (ICD-10 - R06.83)05/27/2025 Well adult (ICD-10 - Z00.00) Plan Of Treatment Pending Test Test Name Order Date Ultrasound : Prostate 03/09/2023 CMP (COMPLETE METABOLIC PANEL) 3 HEMOGLOBIN A1C (GLYCO) 02/21/2023 HEMOGLOBIN A1C (GLYCO) 02/18/2025 INSULIN, TOTAL 02/18/2025 LIPID PANEL (CHOL/TRIG/HDL/LDL) 02/19/20 25 LIPID PANEL (CHOL/TRIG/HDL/LDL) 02/22/20 23 CBC WITH DIFF (EXP 07/2025) 02/21/2023 PSA, PROSTATE-SPECIFIC ANTIGEN 3 PSA, PROSTATE-SPECIFIC ANTIGEN 4 Sleep study - Diagnostic Polysonogram INGE DIRECT 05/03/2023 ANTISTREPTOLYSIN O AB (ASO) 05/03/2023 CRP 05/03/2023 RHEUMATOID FACTOR 05/03/2023 SPUTUM GRAM STAIN 10/06/2023 THYROID PROFILE WITH TSH 10/06/2023 URIC ACID SERUM 05/03/2023 CTA CHEST WO W CON 10/06/2023 XR CHEST 2 V 09/26/2023 THYROID PANEL (T4/TSH/FREE T3) 3 THYROID PANEL (T4/TSH/FREE T3) 5 ECHOCARDIO M/2D COMPLETE 10/06/2023 Free PSA 02/27/2023 PSA, SCREENING 02/18/2025 CMP (COMP MET WALEKR) w/eGFR CKD-EPI 2024 CBC WITH DIFF 02/18/2025 Insurance Providers Payer Name Payer Address Payer Phone Subscriber Number Group Number Insured Name Patient Relationship to Insured Coverage Start Date Coverage End Date [employer] [address] [place] [phone] [id number] Ollie Lowery Self - patient is the insured 2017 Medications Administered Medication Instructions Date of Administration Dosage Notes Kenalog-40 4120 mg120 Medical (General) History Medical History History ICD Code Kidney stones N20.0 Derangement, knee, right M23.91 Derangement of left knee ligament M23.8X 2 Hypertension I10 Surgical History Surgery Date(Month/Year) Synvisc Inj- Bilateral Knee- [facility] 08/05/2025 Right knee scope Excision on bone growth LLEHospitalization History Reason Date(Month/Year) covid 2023
--- OUTSIDE RECORDS SUMMARY | 2025-09-02 20:45 | XMS_ITS | Clinical Summary ---
Author Organization [facility] Address [address] [place] [address] Care Team Providers Care Storekeeper Steward Name Role Phone Surendra Moser MD Primary Care Provider [phone] Allergies Active AllergyReactionsCriticalityNoted NjipWjtcucmdExsylqfuhahr42/22/2025 Other Reaction(s): Unknown Medications MedicationSigDispense QuantityRefillsLast FilledStart DateEnd DateStatus carvedilol (Coreg) 6.25 MG tablet Take 6.25 mg by mouth Take with food.Active irbesartan (Avapro) 300 MG tablet Take 300 mg by mouth DailyActive tamsulosin (Flomax) 0.4 MG 24 hr capsule Take 0.4 mg by mouth03/18/2023ctive ibuprofen 200 MG tablet Take by mouthActive dutasteride (Avodart) 0.5 MG capsule 1 capsuleActive carvedilol (Coreg) 12.5 MG tablet TAKE 1 TABLET BY MOUTH TWICE A DAY WITH FOOD FOR 90 DAYS5Active Hospital, Clinic, or Other Facility Administered MedicationOrdered DoseRoute FrequencyStart DateEnd DateStatus hylan (Synvisc) injection 2 mL Indications:Bilateral primary osteoarthritis of knee2 mLOnce PRN Procedure Ended hylan (Synvisc) injection 2 mL Indications:Bilateral primary osteoarthritis of knee2 mLOnce PRN Procedure Ended Active Problems No known active problems Encounters DateTypeDepartmentCare BirzAqcoerahecu19/17/2025 8:00 AM ESTProcedure Visit [facility] [address] [phone] Aren Fuentes, Bilateral primary osteoarthritis of knee08/05/2025amboo flowsheet [facility] [address] [place] [phone] Aren Fuentes, DO 08/05/20255071Qihpjg38/03/2025 8:15 AM ESTProcedure Visit [facility] [address] [place] [phone] Aren Fuentes, DO Bilateral primary osteoarthritis of knee07/22/2025amboo flowsheet [facility] [address] [place] [phone] Aren Fuentes, DO 07/22/20255173Jncnwq86/27/2025 8:15 AM EDTProcedure Visit [facility] [address] [place] [phone] Aren Fuentes, DO Bilateral primary osteoarthritis of knee07/15/2025amb flowsheet [facility] [address] [place] [phone] Aren Fuentes, DO 07/15/20250726Cymrta76/22/2025 8:45 AM EDTOffice Visit [facility] [address] [place] [phone] Aren Fuentes, Bilateral primary osteoarthritis of knee (Primary Dx)06/10/2025 8:05 AM EDT Ancillary Procedure [facility] [address] [place] [phone] 06/10/2025 8:00 AM EDTAncillary Procedure [facility] [address] [place] [place] [address] 06/10/2025Travelfrom Last 3 Months Family History Medical HistoryRelationNameCommentsCancerFatherHeart diseaseFatherStrokeMother RelationNameStatusCommentsFatherDeceasedMotherAlive Social History Tobacco UseTypesPacks/DayYears UsedDateSmoking Tobacco: FormerCigarettesQuit: 2000Smokeless Tobacco: Never Tobacco Cessation:Counseling Given: Not Answered Alcohol UseStandard Drinks/WeekCommentsNever0 (1 standard drink = 0.6 oz pure alcohol)caffeine intake: 1-2 cups per day of energy drinksSex and Gender InformationValueDate RecordedSex Assigned at BirthNot on fileLegal SexMale 12/01/2022 8:13 PM EDTGender KwipiagsIooo52/16/2023 11:41 AM EDTSexual OrientationNot on file Last Filed Vital Signs Vital SignReadingTime TakenCommentsBlood Sscqzxdp063/7703 12:00 PM EST Pulse--Vdutaqwcnes19.4 ??C (97.5 ??F)05/10/2023 10:44 AM EDTRespiratory Rate-- Oxygen Saturation--Inhaled Oxygen Concentration--Omoydh365 kg (273 lb)08/05/2025 8:01 AM RTWYghmjs661.6 cm (5' 11.5 )08/05/2025 8:01 AM ESTBody Mass Index37.55 08/05/2025 8:01 AM EST Plan of Treatment Health MaintenanceDue DateLast DoneCommentsCT Qtqwznzgrdng1966FIT-DNA 1966FIT1966FOBT1966 4019Bqzrltgkxbqow1966COVID-19 Vaccine ( season), 07/22/2021Influenza Vaccine (#1) 05/20/20253428Wvgqeppffqs95olorectal Cancer Hjcnjrkpd62/26/2033 Pneumococcal Vaccine: Pediatrics (0 to 5 Years) and At-Risk Patients (6 to 64 Years)Aged OutNo longer eligible based on patient's age to complete this topic Procedures Procedure NamePriorityDate/TimeAssociated DiagnosisCommentsPR ARTHROCENTESIS ASPIR&/INJ MAJOR JT/BURSA W/O SDObfwfoq66/17/2025 8:02 AM EST Bilateral primary osteoarthritis of knee OK ARTHROCENTESIS ASPIR&/INJ MAJOR JT/BURSA W/O IDYgwckop00/03/2025 8:07 AM EST Bilateral primary osteoarthritis of knee OK ARTHROCENTESIS ASPIR&/INJ MAJOR JT/BURSA W/O SWHiegyhn95/27/2025 8:17 AM EDT Bilateral primary osteoarthritis of knee XR KNEE 3 VIEWS CEZUQzbtjrz08/22/2025 7:41 AM EDT Bilateral primary osteoarthritis of knee XR KNEE 3 VIEWS BAELQErufwfe86/22/2025 7:41 AM EDT Bilateral primary osteoarthritis of knee from Last 3 Months Results * OK ARTHROCENTESIS ASPIR&/INJ MAJOR JT/BURSA W/O US (08/05/2025 8:02 AM EST) Michelle Quiros ARR - 08/05/2025 8:02 AM EST Michelle Delong, [facility] 08/05/2025 8:00 PM L Inj/Asp: bilateral knee on 08/05/2025 8:02 AM Indications: pain Details: 22 G needle, lateral approach Medications (Right): 2 mL hylan 16 MG/2ML Medications (Left): 2 mL hylan 16 MG/2ML Consent was given by the patient. Authorizing ProviderResult TypeResult Randal [facility]/BEDSIDE ORDERABLESFinal Result * [place] ARTHROCENTESIS ASPIR&/INJ MAJOR JT/BURSA W/O US (07/22/2025 8:07 AM EST) Michelle Quiros [facility] - 07/22/2025 8:07 AM EST Michelle Delong [facility] 07/22/2025 7:36 PM L Inj/Asp: bilateral knee on 07/22/2025 8:07 AM Indications: pain Details: 22 G needle, lateral approach Medications (Right): 2 mL hylan 16 MG/2ML Medications (Left): 2 mL hylan 16 MG/2ML Consent was given by the patient. Authorizing ProviderResult TypeResult Randal [facility]/BEDSIDE ORDERABLESFinal Result * [place] ARTHROCENTESIS ASPIR&/INJ MAJOR JT/BURSA W/O US (07/15/2025 8:17 AM EDT) Narrative Michelle Delong, [facility] - 07/15/2025 8:17 AM EDT Michelle Delong, AR[facility] 07/15/2025 4:38 PM L Inj/Asp: bilateral knee on 07/15/2025 8:17 AM Indications: pain Details: 22 G needle, lateral approach Medications (Right): 2 mL hylan 16 MG/2ML Medications (Left): 2 mL hylan 16 MG/2ML Consent was given by the patient. Authorizing ProviderResult TypeResdon [facility]/BEDSIDE ORDERABLESFinal Result * XR knee 3 views right (06/10/2025 7:41 AM EDT)Anatomical RegionLaterality ModalityLower Extremities, KneeRightRadiographic ImagingSpecimen (Source) Anatomical Location / LateralityCollection Method / VolumeCollection Time Received Time Narrative 06/10/2025 6:38 PM EDT Imaging Result: [...] Moderate arthritic changes at the patellofemoral compartments. Authorizing ProviderResult TypeResult Randal BARRIOS XR PROCEDURES Final Result * XR knee 3 views left (06/10/2025 7:41 AM EDT)Anatomical RegionLaterality ModalityLower Extremities, KneeLeftRadiographic ImagingSpecimen (Source) Anatomical Location / LateralityCollection Method / VolumeCollection Time Received Time Narrative 06/10/2025 6:38 PM EDT Imaging Result: [...] Moderate arthritic changes at the patellofemoral compartments. Authorizing ProviderResult TypeResult StatusJason A Brown DOIMG XR PROCEDURES Final Result from Last 3 Months Insurance Care Teams Team MemberRelationshipSpecialtyStart DateEnd Surendra Moser MD [address] [place] [phone] PCP - GeneralFamily Medicine06/10/25
== END 2025-09-02 20:42 | disposition home or self-care (01) ==
LOC: SLEEP 20:42
PROVIDERS: PCP Family Medicine; Visit Provider Family Medicine
DX: G47.33 Obstructive sleep apnea (adult) (pediatric) (principal)
CPT/HCPCS: 95811